=== PATIENT | female | born 1965 | race Caucasian/White ===

== ENCOUNTER → 2019-05-25 17:08 | Outpatient (BNVA) | payer OTHER, SELFPAY | PROVIDERS: Family Provider Family Medicine; PCP Family Medicine; Visit Provider Family Medicine | DX: E11.40 Type 2 diabetes mellitus with diabetic neuropathy, unspecified (principal); I10 Essential (primary) hypertension | CPT/HCPCS: 80048; 83036 ==

== ENCOUNTER → 2019-08-23 11:10 | Outpatient (BNVA) | payer OTHER, SELFPAY | PROVIDERS: Family Provider Family Medicine; PCP Family Medicine; Visit Provider Family Medicine | DX: E11.9 Type 2 diabetes mellitus without complications (principal); I10 Essential (primary) hypertension; E11.40 Type 2 diabetes mellitus with diabetic neuropathy, unspecified; F41.1 Generalized anxiety disorder; M25.50 Pain in unspecified joint; E78.2 Mixed hyperlipidemia; J30.9 Allergic rhinitis, unspecified; E11.42 Type 2 diabetes mellitus with diabetic polyneuropathy; B35.3 Tinea pedis; K21.9 Gastro-esophageal reflux disease without esophagitis | CPT/HCPCS: 80053; 80061; 83036 ==

== ENCOUNTER → 2019-11-16 11:23 | Outpatient (BNVA) | payer OTHER, SELFPAY | PROVIDERS: Family Provider Family Medicine; PCP Family Medicine; Visit Provider Family Medicine | DX: E11.40 Type 2 diabetes mellitus with diabetic neuropathy, unspecified (principal); I10 Essential (primary) hypertension; F41.1 Generalized anxiety disorder; M25.50 Pain in unspecified joint; E78.2 Mixed hyperlipidemia; J30.9 Allergic rhinitis, unspecified; B35.3 Tinea pedis | CPT/HCPCS: 80048; 83036 ==

== ENCOUNTER → 2020-02-15 10:18 | Outpatient (BNVA) | payer OTHER, SELFPAY | PROVIDERS: Family Provider Family Medicine; PCP Family Medicine; Visit Provider Family Medicine | DX: I10 Essential (primary) hypertension (principal); E11.40 Type 2 diabetes mellitus with diabetic neuropathy, unspecified; E78.2 Mixed hyperlipidemia; I50.9 Heart failure, unspecified | CPT/HCPCS: 80048; 83036 ==

== ENCOUNTER → 2020-05-22 18:00 | Outpatient (BNVA) | payer OTHER, SELFPAY | PROVIDERS: Family Provider Family Medicine; PCP Family Medicine; Visit Provider Family Medicine | DX: F41.1 Generalized anxiety disorder (principal); E11.42 Type 2 diabetes mellitus with diabetic polyneuropathy; M25.50 Pain in unspecified joint; I50.9 Heart failure, unspecified; L02.611 Cutaneous abscess of right foot; F32.1 Major depressive disorder, single episode, moderate; E78.2 Mixed hyperlipidemia; K21.9 Gastro-esophageal reflux disease without esophagitis; I11.0 Hypertensive heart disease with heart failure | CPT/HCPCS: 80048; 83036 ==

== ENCOUNTER 2020-07-13 11:17 | Outpatient (CLI) | payer OTHER, SELFPAY ==
--- NOTE | 2020-07-13 11:30 | MM_ITS ---
WS: [id number] BILATERAL SCREENING DIGITAL MAMMOGRAM WITH CAD HISTORY: Screening Breast cancer COMPARISON: 08/25/2018 and 11/30/2008 Bilateral CC and MLO views submitted. Computer aided detection analyzed. Breast composition: There are scattered areas of fibroglandular density. No suspicious masses, microc alcifications or architectural distortion. Lucent centered calcifications in each breast are stable. MM/[id number] IMPRESSION: BI-RADS: 2-Benign FOLLOW UP: 1 Year Follow-up
== END 2020-07-13 11:18 | disposition home or self-care (01) ==
LOC: RADSHAW 11:18
PROVIDERS: PCP Family Medicine; Visit Provider Family Medicine
DX: Z12.31 Encounter for screening mammogram for malignant neoplasm of breast (principal)
CPT/HCPCS: 77067

== ENCOUNTER → 2020-08-21 11:17 | Outpatient (BNVA) | payer OTHER, SELFPAY | PROVIDERS: PCP Family Medicine; Visit Provider Family Medicine | DX: E11.9 Type 2 diabetes mellitus without complications (principal); I10 Essential (primary) hypertension; E78.2 Mixed hyperlipidemia; R53.83 Other fatigue; E03.9 Hypothyroidism, unspecified; E11.42 Type 2 diabetes mellitus with diabetic polyneuropathy; R53.82 Chronic fatigue, unspecified; F32.1 Major depressive disorder, single episode, moderate; F41.1 Generalized anxiety disorder; I50.9 Heart failure, unspecified | CPT/HCPCS: 80053; 80061; 82607; 82652; 83036; 84443; 85025 ==

== ENCOUNTER → 2020-11-21 10:48 | Outpatient (BNVA) | payer OTHER, SELFPAY | PROVIDERS: PCP Family Medicine; Visit Provider Family Medicine | DX: F32.1 Major depressive disorder, single episode, moderate (principal); F41.1 Generalized anxiety disorder; I50.9 Heart failure, unspecified; E78.2 Mixed hyperlipidemia; E11.42 Type 2 diabetes mellitus with diabetic polyneuropathy; K21.9 Gastro-esophageal reflux disease without esophagitis; I10 Essential (primary) hypertension; L91.8 Other hypertrophic disorders of the skin | CPT/HCPCS: 80053; 83036 ==

== ENCOUNTER → 2021-02-15 17:43 | Outpatient (BNVA) | payer OTHER, SELFPAY | PROVIDERS: PCP Family Medicine; Visit Provider Family Medicine | DX: E11.9 Type 2 diabetes mellitus without complications (principal); I11.0 Hypertensive heart disease with heart failure; I50.9 Heart failure, unspecified | CPT/HCPCS: 80053; 83036; 85025 ==

== ENCOUNTER → 2021-05-17 10:49 | Outpatient (BNVA) | payer OTHER, SELFPAY | PROVIDERS: PCP Family Medicine; Visit Provider Family Medicine | DX: I11.0 Hypertensive heart disease with heart failure (principal); I50.9 Heart failure, unspecified; M25.50 Pain in unspecified joint; E11.9 Type 2 diabetes mellitus without complications; J30.9 Allergic rhinitis, unspecified; F41.1 Generalized anxiety disorder; E11.42 Type 2 diabetes mellitus with diabetic polyneuropathy; M25.561 Pain in right knee; M25.562 Pain in left knee; R25.2 Cramp and spasm; B35.3 Tinea pedis | CPT/HCPCS: 80048; 83036 ==

== ENCOUNTER → 2021-06-11 12:04 | Outpatient (BNVA) | payer OTHER, SELFPAY | PROVIDERS: PCP Family Medicine; Visit Provider Family Medicine | DX: M79.671 Pain in right foot (principal); M19.071 Primary osteoarthritis, right ankle and foot | CPT/HCPCS: 73630 ==

== ENCOUNTER → 2021-07-26 15:04 | Outpatient (BNVA) | payer OTHER, SELFPAY | PROVIDERS: PCP Family Medicine; Visit Provider Family Medicine | DX: E11.42 Type 2 diabetes mellitus with diabetic polyneuropathy (principal); S93.324A Dislocation of tarsometatarsal joint of right foot, initial encounter; X58.XXXA Exposure to other specified factors, initial encounter | CPT/HCPCS: 73630 ==

== ENCOUNTER 2021-08-13 10:55 | Outpatient (CLI) | payer OTHER, SELFPAY ==
--- NOTE | 2021-08-13 11:15 | USCV_ITS ---
Edith García Age: 55 Gender: F : 1965 Exam Date: 08/13/2021 11:37 Ordering Phys: Stephanie Montague MD Technologist: Noemi Owens Exam Location: [facility] [place] Indication: Cardiac murmur BP: 133 / 85 HR: 81 Rhythm: Sinus Technical Quality: Suboptimal MEASUREMENTS (Male / Female) Normal Values 2D ECHO LV Diastolic Diameter PLAX 4.0 cm 4.2 - 5.9 / 3.9 - 5.3 cm LV Systolic Diameter PLAX 2.8 cm IVS Diastolic Thickness 1.0 cm 0.6 - 1.0 / 0.6 - 0.9 cm IVS Systolic Thickness 1.7 cm LVPW Diastolic Thickness 1.5 cm 0.6 - 1.0 / 0.6 - 0.9 cm LVPW Systolic Thickness 1.7 cm LVOT Diameter 2.0 cm LV Ejection Fraction 2D Teich 57.2 % LA Diameter 2.4 cm Aorta at Sinotubular Diameter 1.9 cm M-MODE Aortic Annulus Diameter 3.0 cm LA Ao Ratio MM 0.8 DOPPLER AV Peak Velocity 130.0 cm/s LVOT Peak Velocity 66.0 cm/s AV Area Cont Eq vti 1.7 cm squared AV Area Cont Eq pk 1.6 cm squared MV Area PHT 3.1 cm squared Mitral E to A Ratio 0.9 MV E' Velocity 69.0 cm/s TR Peak Velocity 266.0 cm/s TR Peak Gradient 28.3 mmHg TV Peak E Velocity 60.0 cm/s PV Peak Velocity 106.0 cm/s FINDINGS Left Ventricle Normal left ventricular cavity size. Grossly normal left ventricle systolic function. Left ventricular ejection fraction is estimated at 60 %. Although no diagnostic regional wall motion normality could be in fact, this possibility cannot be completely excluded. Right Ventricle Normal right ventricular size and systolic function. Right Atrium Right atrium not well visualized. Left Atrium Normal left atrial size. Mitral Valve Possibly normal mitral valve. No mitral valve stenosis. Aortic Valve Aortic valve not well visualized. No aortic valve stenosis. Tricuspid Valve Tricuspid valve not well visualized. No tricuspid valve stenosis. Trace tricuspid valve regurgitation. Pulmonic Valve Pulmonic valve not well visualized. No pulmonary valve stenosis. Pericardium No pericardial effusion. Aorta Normal size aortic root and proximal ascending aorta. CONCLUSIONS 1. This is a technically difficult study. 2. Normal left ventricular cavity size. Grossly normal left ventricle systolic function. Left ventricular ejection fraction is estimated at 60 %. Although no diagnostic regional wall motion normality could be in fact, this possibility cannot be completely excluded. 3. Repeat study with echo contrast is recommended. Nuzhat Garcia MD (Electronically Signed) Final Date: 15 August 2021 17:30 S
== END 2021-08-13 10:56 | disposition home or self-care (01) ==
LOC: RAD 10:57
PROVIDERS: PCP Family Medicine; Visit Provider Family Medicine
DX: R01.1 Cardiac murmur, unspecified (principal); R42 Dizziness and giddiness
CPT/HCPCS: 80053; 80061; 83036; 93306

== ENCOUNTER → 2021-11-01 14:58 | Outpatient (BNVA) | payer OTHER, SELFPAY | PROVIDERS: PCP Family Medicine; Visit Provider Family Medicine | DX: I10 Essential (primary) hypertension; F41.1 Generalized anxiety disorder; E11.42 Type 2 diabetes mellitus with diabetic polyneuropathy; M25.561 Pain in right knee; M25.562 Pain in left knee; I50.9 Heart failure, unspecified; J30.9 Allergic rhinitis, unspecified; M25.50 Pain in unspecified joint; R25.2 Cramp and spasm; F32.1 Major depressive disorder, single episode, moderate | CPT/HCPCS: 80048; 83036 ==

== ENCOUNTER → 2021-12-30 13:14 | Outpatient (BNVA) | payer OTHER, SELFPAY | PROVIDERS: PCP Family Medicine; Visit Provider Emergency Medicine | DX: Z20.822 Contact with and (suspected) exposure to COVID-19 (principal); M79.10 Myalgia, unspecified site; J10.1 Influenza due to other identified influenza virus with other respiratory manifestations | CPT/HCPCS: 87400; 87426 ==

== ENCOUNTER 2023-01-10 10:10 | Inpatient (IN) | payer OTHER, SELFPAY ==
[2023-01-10] VITALS (10 sets, daily range): BP systolic 125–156; BP diastolic 44–100; PULSE 67–93; RESP 16–20; TEMP 36.7–36.9; O2SAT 91–100; BMI 31.7
--- NOTE | 2023-01-10 10:52 | W.ED.BACK ---
HPI - Back Pain/Injury General: Chief Complaint: Fall Stated Complaint: fall post back surgery Time Seen by Provider: 01/10/23 10:25 Source: patient and EMS Mode of arrival: EMS Limitations: no limitations History of Present Illness: Patient presents to the emergency department today brought by EMS for evaluation and treatment of pain and other issues after fall last night. Patient has a very complicated history over the last year or so. Patient had thoracic/lumbar surgery performed by a doctor in [facility] for what sounds like a spinal abscess. Patient was sent to [facility] after a diabetic right foot ulcer became gangrenous and patient had septicemia. She reports she was unconscious for couple weeks and when she woke up they had amputated her right leg below the knee. Patient states she spent approximately 6 months in [facility] and rehab and was sent to another rehab facility in [place] in September. Patient returned home but just yesterday. Patient has a colostomy and suprapubic catheter now as well. She indicates she just returned home yesterday afternoon and yesterday evening was trying to change her adult diaper at home when she accidentally fell backwards. Patient states she landed on the hardwood floor in her living room and injured her back. She states she was unable to get up all night. She states she spent the night on the floor. She admitted to being very cold. She had not eaten or drank anything since lunch that day. She has not taken any of her medications since yesterday. Patient states that this morning she was finally able to crawl into her bedroom where her cell phone was plugged in to call 911. 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 Review of Systems General: Reports: 10 or more systems reviewed and unremarkable except in HPI and below PFSH ED PFSH: Medical History Allergic rhinitis Arthralgia Cellulitis of foot associated with diabetes mellitus CHF (congestive heart failure) ABDON (generalized anxiety disorder) GERD (gastroesophageal reflux disease) Hyperlipemia, mixed Hypertension, benign Irregular heart beat Large platelets Major depression Neuropathy in diabetes Onychomycosis Peripheral edema PVD (peripheral vascular disease) Sleep apnea, obstructive Type 2 diabetes mellitus without complication, without long-term current use of insulin Bydureon switched to glipizide due to cost Surgical History H/O: hysterectomy Hx of cholecystectomy Family History Father Heart disease Family/Other Cancer aunt-breast cancer Other Diabetes Social History Smoking and tobacco status: never smoked Alcohol intake: never Substance/Drug Use: never Current gender identity: Female Female Reproductive History: Spontaneous abortions: No Physical Exam Const: COMMON NORMALS: no acute distress, patient oriented x3 and alert HENMT: COMMON NORMALS: normocephalic, atraumatic, hearing grossly normal bilaterally and moist oral mucous membranes HEAD & SCALP: normocephalic and atraumatic Eye: COMMON NORMALS: Equal, round and reactive pupils present, EOMs intact bilaterally and conjunctivae normal CONJUNCTIVA: Yes conjunctivae normal PUPIL: Yes Equal, round and reactive pupils present Neck/C-Spine: COMMON NORMALS: full ROM and no JVD Lymph: LYMPHATIC: no lymphadenopathy noted Resp: COMMON NORMALS: normal respiratory effort, No retractions, No use of accessory muscles and clear to auscultation bilaterally AUSCULTATION: clear to auscultation bilaterally Cardio: COMMON NORMALS: no JVD, regular rate and regular rhythm RATE: regular rate RHYTHM: regular rhythm GI: OTHER: Patient has a large pannus. She has a left lateral stoma. Stoma itself does not appear abnormal but, surrounding skin is very erythematous and macerated from her colostomy adhesive. She indicates tenderness around the stoma site. Suprapubic catheter in place. : OTHER: Suprapubic catheter in place with good urine flow. Back/Pelvis: OTHER: Back and spinal examination very difficult due to patient body habitus and difficulty with mobility in the bed. However, patient is able to somewhat roll onto her side to allow for pillow padding to be placed. No obvious abnormalities Extremity: COMMON NORMALS: normal to inspection, full ROM and capillary refill normal NARRATIVE EXTREMITY EXAM: Patient with prosthesis removed. No signs of skin breakdown. Neuro: COMMON NORMALS: patient oriented x3 SENSORIUM/ORIENTATION: Yes alert Psych: COMMON NORMALS: mental status grossly normal, Normal thought process present, cooperative, normal affect and activity/motor behavior normal THOUGHT PROCESS: Normal thought process present Skin: COMMON NORMALS: no rashes or lesions noted and no wounds (Except otherwise noted on abdominal exam.) GENERAL SKIN EXAM: no rashes or lesions noted Course Vital Signs: Vital signs: Vital Signs Temperature 98.0 F 01/10/23 10:10 Pulse Rate 67 01/10/23 13:52 Respiratory Rate 18 01/10/23 16:48 Blood Pressure 151/100 01/10/23 11:45 Pulse Oximetry 93 01/10/23 13:52 Oxygen Delivery Me thod Room Air 01/10/23 13:52 MDM - Back Pain/Injury Medical Decision Making Patient presented to the emergency department with multiple issues and chronic medical issues. Patient's evaluation revealed no signs of an acute septicemia but has a significant urinary infection. Kidney function is within normal limits. No elevated white blood cell count. Hemoglobin is stable. No electrolyte abnormality. Given the patient's history we did perform CT examination to evaluate the thoracolumbar in the abdominal/pelvic region. No acute findings on her exam. I did reach out and spoke with Dr. Driver discuss concerns for patient discharge given her current condition. We did review lab work and imaging together and he is admitting her to the [facility] floor. Patient be started on Zosyn-I had originally ordered Rocephin but, medication has not been given yet and was able to change the antibiotic order. We also are collecting blood cultures prior to starting antibiotics. We will defer care and further evaluation of this patient to the hospitalist services at this time. Patient was notified of the recommendation for admission and she was in agreement. Differential Diagnosis Likely strain of lumbar region; Unlikely lumbar radiculopathy, sciatica, pyelonephritis or thoracic back pain Labs 01/10/23 11:35 01/10/23 11:35 Radiology Impressions Abdomen/Pelvis CT 01/10/23 12:51 IMPRESSION: 1. No acute findings within the abdomen or pelvis. 2. Postsurgical changes sigmoid colon left-sided colostomy unremarkable in appearance. 3. Postsurgical changes with spinal instrumentation stabilizing chronic severe compression fracture L1 as discussed above. 4. Additional nonemergent findings as above. Laboratory Results WBC 9.83 10^3/uL (3.29-11.43) 01/10/23 11:35 RBC 4.10 10^6/uL (3.85-5.65) 01/10/23 11:35 Hgb 11.40 g/dL (11.27-16.99) 01/10/23 11:35 Hct 35.8 % (36-47) L 01/10/23 11:35 MCV 87.3 fl (85-98) 01/10/23 11:35 MCH 27.8 pg (27-33) 01/10/23 11:35 MCHC 31.8 g/dL (30-55) 01/10/23 11:35 RDW 16.8 % (12.1-15.1) H 01/10/23 11:35 Plt Count 394 10^3/cmm (157-399) 01/10/23 11:35 MPV 8.9 fL (7.4-10.4) 01/10/23 11:35 Neut % (Auto) 79.3 % 01/10/23 11:35 Lymph % (Auto) 14.1 % 01/10/23 11:35 [place] % (Auto) 5.8 % 01/10/23 11:35 Eos % (Auto) 0.2 % 01/10/23 11:35 Baso % (Auto) 0.2 % 01/10/23 11:35 Neut # (Auto) 7.79 10^3/uL (1.8-7.7) H 01/10/23 11:35 Lymph # (Auto) 1.4 10^3/uL (0.8-4.8) 01/10/23 11:35 [place] # (Auto) 0.6 10^3/uL (0.2-0.9) 01/10/23 11:35 Eos # (Auto) 0.0 10^3/uL (0.0-0.8) 01/10/23 11:35 Baso # (Auto) 0.0 10^3/uL (0.0-0.1) 01/10/23 11:35 Nucleated RBC % (auto) 0 % 01/10/23 11:35 Nucleated RBCs # 0.0 /100WBC 01/10/23 11:35 ESR 26 mm/hr (0-15) H 01/10/23 11:35 Sodium 141 mmol/L (136-145) 01/10/23 11:35 Potassium 3.6 mmol/L (3.5-5.1) 01/10/23 11:35 Chloride 103 mmol/L (98-107) 01/10/23 11:35 Carbon Dioxide 24 mmol/L (22-29) 01/10/23 11:35 Anion Gap 17.6 (5-19) 01/10/23 11:35 BUN 16 mg/dL (6-20) 01/10/23 11:35 Creatinine 0.6 mg/dL (0.5-0.9) 01/10/23 11:35 GFR Calculation 102.3 mL/min (90-130) 01/10/23 11:35 Glucose 201 mg/dL (65-115) H 01/10/23 11:35 Calculated Osmolality 299 mOsm/kg (285-295) H 01/10/23 11:35 Calcium 9.1 mg/dL (8.5-10.5) 01/10/23 11:35 Total Bilirubin 0.3 mg/dL (0.15-1.2) 01/10/23 11:35 AST 21 U/L (0-32) 01/10/23 11:35 ALT 16 U/L (0-33) 01/10/23 11:35 Alkaline Phosphatase 134 U/L (35-105) H 01/10/23 11:35 Creatine Kinase 84 U/L (26-192) 01/10/23 11:35 C-Reactive Protein 50.5 mg/L (0.0-4.9) H 01/10/23 11:35 NT-Pro-B Natriuret Pep 278 pg/mL (0-125) H 01/10/23 11:35 Total Protein 7.7 g/dL (6.6-8.7) 01/10/23 11:35 Albumin 3.9 g/dL (3.5-5.2) 01/10/23 11:35 Globulin 3.8 g/dL (1.3-4.6) 01/10/23 11:35 Procalcitonin 0.08 ng/mL (0-0.5) 01/10/23 11:35 Urine Color Yellow (Yellow) 01/10/23 12:55 Urine Appearance Hazy (CLEAR) A 01/10/23 12:55 Urine pH 5 (5-7) 01/10/23 12:55 Ur Specific [place] 1.015 (1.005-1.030) 01/10/23 12:55 Urine Protein 3+ (Negative) H 01/10/23 12:55 Urine Glucose (UA) Norm (Normal) 01/10/23 12:55 Urine Ketones 1+ (Negative) H 01/10/23 12:55 Urine Blood 3+ (Negative) H 01/10/23 12:55 Urine Nitrate Positive (Negative) H 01/10/23 12:55 Urine Bilirubin Neg (Negative) 01/10/23 12:55 Urine Urobilinogen Norm mg/dL (Negative) 01/10/23 12:55 Ur Leukocyte Esterase 2+ (Negative) H 01/10/23 12:55 Urine RBC 5-10 /hpf (0-2) H 01/10/23 12:55 Urine WBC >100 /hpf (0-5) H 01/10/23 12:55 Ur Squamous Epith Cells 0-4 /hpf (0-5) H 01/10/23 12:55 Amorphous Sediment Not Reportable 01/10/23 12:55 Urine Bacteria 4+ /hpf (NONE) H 01/10/23 12:55 All radiology interpretation(s) finalized by discharge Discharge Plan Discharge Patient Disposition: Admitted As Inpatient Clinical Impression: Back pain of thoracolumbar region, CHF (congestive heart failure), History of creation of ostomy, Chronic suprapubic catheter, DM II (diabetes mellitus, type II), controlled, HTN (hypertension) Condition: Stable Coding Level of Care Code ED Senior Adults Director for Kenneth Carrero
--- NOTE | 2023-01-10 10:59 | ECG_ITS ---
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 Measurements Intervals [place] Rate: 90 P: 53 ID: [id number] QRS: -71 QRSD: 121 T: 73 QT: 406 QTc: 498 Interpretive Statements SINUS RHYTHM LEFT ANTERIOR FASCICULAR BLOCK [QRS AXIS <= -45, QR IN I, RS IN II] ANTEROLATERAL MYOCARDIAL INFARCTION , OF INDETERMINATE AGE [40+ ms Q WAVE IN I/aVL/V3-V6] No previous ECG available for comparison Electronically Signed On 01-10-2023 19:07:01 CDT by Jaime Pedroza M.D. [id number]
--- NOTE | 2023-01-10 11:20 | PC.PHAR ---
[facility] is faxing discharge med list from yesterday 01/10.
--- NOTE | 2023-01-10 11:35 | PC.NURSE ---
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 Her name is Jazmyne George phone number
[2023-01-10 11:43] LABS: Basophils % 0.2 %; Eosinophils % 0.2 %; Hematocrit 35.8 % (36-47); Lymphocytes # 1.4 10^3/uL (0.8-4.8); Lymphocytes % 14.1 %; Mean Corpuscular HGB Conc 31.8 g/dL (30-55); Mean Corpuscular Hemoglobin 27.8 pg (27-33); Mean Corpuscular Volume 87.3 fl (85-98); Mean Platelet Volume 8.9 fL (7.4-10.4); Monocytes # 0.6 10^3/uL (0.2-0.9); Monocytes % 5.8 %; Neutrophils # 7.79 10^3/uL (1.8-7.7); Neutrophils % 79.3 %; Nucleated Red Blood Cells % 0 %; Platelet Count 394 10^3/cmm (157-399); Red Cell Distribution Width 16.8 % (12.1-15.1); White Blood Count 9.83 10^3/uL (3.29-11.43)
[2023-01-10 11:49] LABS: Erythrocyte Sedimentation Rate 26 mm/hr (0-15)
[2023-01-10 12:27] LABS: NT Pro B Type Natriuretic Pept 278 pg/mL (0-125); Procalcitonin 0.08 ng/mL (0-0.5)
[2023-01-10 12:39] LABS: Alanine Aminotransferase 16 U/L (0-33); Albumin Level 3.9 g/dL (3.5-5.2); Alkaline Phosphatase 134 U/L (35-105); Aspartate Amino Transferase 21 U/L (0-32); Blood Urea Nitrogen 16 mg/dL (6-20); C Reactive Protein 50.5 mg/L (0.0-4.9); Calcium 9.1 mg/dL (8.5-10.5); Carbon Dioxide 24 mmol/L (22-29); Chloride 103 mmol/L (98-107); Creatine Phosphokinase 84 U/L (26-192); Globulin 3.8 g/dL (1.3-4.6); Glomerular Filtration Rate 102.3 mL/min (90-130); Glucose 201 mg/dL (65-115); Osmolality Calculated 299 mOsm/kg (285-295); Sodium 141 mmol/L (136-145); Total Bilirubin 0.3 mg/dL (0.15-1.2); Total Protein 7.7 g/dL (6.6-8.7)
[2023-01-10 12:42] LABS: Anion Gap 17.6 (5-19); Potassium 3.6 mmol/L (3.5-5.1)
--- NOTE | 2023-01-10 12:51 | CTR_ITS ---
PROCEDURE INFORMATION: Exam: CT Abdomen And Pelvis With Contrast Exam date and time: 01/10/2023 3:54 PM Age: 57 years old Clinical indication: Injury or trauma; Fall; Blunt; Generalized; Additional info: Pain, thoracolumbar pain from fall, abd pain from fall- stoma site TECHNIQUE: Imaging protocol: Computed tomography of the abdomen and pelvis with contrast. Radiation optimization: All CT scans at this facility use at least one of these dose optimization techniques: automated exposure control; mA and/or kV adjustment per patient size (includes targeted exams where dose is matched to clinical indication); or iterative reconstruction. Contrast material: OMNI 350; Contrast volume: 100 ml; Contrast route: INTRAVENOUS (IV); REPORTING DATA: Count of CT and Cardiac NM exams in prior 12 months: This patient has received 0 known CTs and 0 known cardiac nuclear medicine studies in the 12 months prior to the current study. COMPARISON: No relevant prior studies available. RADIATION DOSE METRICS: Total DLP (mGy-cm): 1071.75 FINDINGS: Tubes, catheters and devices: Suprapubic [place] catheter balloon within the urinary bladder which is collapsed and difficult to further assess. Lungs: Lung bases are clear. Liver: Liver is mildly enlarged with fatty infiltration.. Gallbladder and bile ducts: Gallbladder cannot be identified and presumably has been removed. Bile ducts are not dilated. Pancreas: Normal. No ductal dilation. Spleen: Normal. No splenomegaly. Adrenal glands: Normal. No mass. Kidneys and ureters: Normal. No hydronephrosis. Stomach and bowel: Postsurgical changes sigmoid colon with partial resection evident. Left-sided colostomy which is unremarkable. Appendix: No evidence of appendicitis. Intraperitoneal space: Unremarkable. No free air. No significant fluid collection. Vasculature: Unremarkable. No abdominal aortic aneurysm. Lymph nodes: Unremarkable. No enlarged lymph nodes. Urinary bladder: Unremarkable as visualized. Reproductive: Uterus has been removed. Bones/joints: Postsurgical changes with spinal instrumentation of the thoracolumbar spine stabilizing a chronic severe biconcave compression fracture of L1. There is mild retropulsion of the posterior vertebral margin and accentuated kyphosis at the thoracolumbar junction. There is decompressive laminectomy extending from T12-L1 with postop changes within the paraspinal soft tissues difficult to further assess. Soft tissues: See Bones/joints finding. CT/CT abdomen pelvis w con* [id number] IMPRESSION: 1. No acute findings within the abdomen or pelvis. 2. Postsurgical changes sigmoid colon left-sided colostomy unremarkable in appearance. 3. Postsurgical changes with spinal instrumentation stabilizing chronic severe compression fracture L1 as discussed above. 4. Additional nonemergent findings as above.
--- NOTE | 2023-01-10 13:05 | PC.NURSE ---
PT PRESENT WITH ALL MEDS IN BAG, RIGHT PROSTHETIC LEG. AND BACKPACK OF CLOTHES
--- NOTE | 2023-01-10 13:08 | PC.NURSE ---
PT WAS PLACED IN A MEDICAL BED AND GIVEN A [employer] TRANSFER MAT TO LAY ON FOR TRANSFER ASSISTANCE.
[2023-01-10 13:21] LABS: Add Urine Culture? Yes; Add Urine Microscopic? YES; Bacteria Urine 4+ /hpf; Bilirubin Urine Neg (Negative); Blood Urine 3+ (Negative); Glucose Urine UA Norm (Normal); Ketones Urine 1+ (Negative); Leukocyte Esterase Urine 2+ (Negative); Nitrate Urine Positive (Negative); Protein Urine 3+ (Negative); Specific Gravity, Urine 1.015 (1.005-1.030); Squamous Epithelial Cell Urine 0-4 /hpf (0-5); Urine Appearance Hazy (CLEAR); Urine Color Yellow (Yellow); Urobilinogen Urine Norm (Negative); WBC Urine >100 /hpf (0-5); pH Urine 5 (5-7)
[2023-01-10] MEDS: iohexol 350 mg/mL 500 mL Btl (per mL) IV (15:56)
[2023-01-10] MEDS: oxyCODONE 5 mg IR Tab/Cap PO (16:48)
--- NOTE | 2023-01-10 17:01 | PC.NURSE ---
CASSI AKHTAR, POA OF PT, CALLED ASKING FOR UPDATE. CASSI REQUESTED TO BE CALLED WHEN MORE INFORMATION IS AVAILABLE.
[2023-01-10] MEDS: piperacillin-tazobactam 3.375 GM in sodium chloride 0.9% (plus) 50 ML IV (17:10)
--- NOTE | 2023-01-10 17:56 | PC.NURSE ---
PT NEED CPAP TO SLEEP, HOSPITALIST AWARE
--- NOTE | 2023-01-10 17:57 | PC.NURSE ---
PT OSTOMY CHANGED WITH HOSPITAL OSTOMY FROM [facility]
--- NOTE | 2023-01-10 18:17 | P.HP_ITS ---
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, and it required a colostomy, and requiring a suprapubic catheter, she then was transferred to a rehab center in [place], she is now been back in [place] for the last 24 hours, she tells me that she has been on the floor for the last 12 hours since getting home due to generalized weakness, she tells me that she was unable to change her colostomy bag, she tells me that her suprapubic catheter was changes before she left, she does have a prosthetic fitted for her right BKA, but it has not been wrapped, she feels weak, fatigued, tired has had poor appetite, no fevers, no chills, she has not taken her medications today, she reports chronic drainage from her suprapubic catheter which is normal for her, denies any other ulcers, no DTI's Review of Systems Const: Denies: fever(s) Eyes: Denies: change in vision ENMT: Denies: throat pain Card: Denies: chest pain Resp: Denies: dyspnea GI: Denies: abdominal pain : Denies: flank pain Musc: Denies: neck pain or back pain Skin/Breast: Denies: rash Neuro: Denies: headache(s) Psych: Denies: anxiety Medications/Allergies Home Medications Medication Instructions Recorded Confirmed Last Taken Type diclofenac sodium 1 % topical gel 2 g topical QID #100 grams 10/13/20 01/10/23 Unknown Rx omega-3 fatty acids 1,000 mg 1,000 mg PO BID 30 days #60 caps 10/26/21 01/10/23 Unknown Rx capsule metformin 1,000 mg tablet 1,000 mg PO BID 30 days #60 tabs 11/01/21 01/10/23 Unknown Rx montelukast 10 mg tablet 10 mg PO QDAY 30 days #30 tabs 11/01/21 01/10/23 Unknown Rx venlafaxine 150 mg 150 mg PO .QPM 30 days #30 caps 11/01/21 01/10/23 Unknown Rx capsule,extended release 24 hr flash glucose scanning reader #1 ea 12/18/21 01/10/23 Unknown Rx (FreeStyle Colette 14 Day [place]) flash glucose sensor (FreeStyle #2 ea 12/18/21 01/10/23 Unknown Rx Colette 14 Day Sensor kit) pen needle, diabetic 33 gauge x #100 ea 12/27/21 01/10/23 Unknown Rx 1/4 (Comfort EZ Pen [place]) acetaminophen 325 mg tablet 650 mg PO QID PRN Pain 01/10/23 01/10/23 Unknown History apixaban 5 mg tablet (Eliquis) 5 mg PO BID 01/10/23 01/10/23 Unknown History ascorbic acid (vitamin C) 500 mg 500 mg PO TID 01/10/23 01/10/23 Unknown History tablet (Vitamin C) aspirin 81 mg tablet,delayed 81 mg PO BID 01/10/23 01/10/23 Unknown History release atorvastatin 10 mg tablet 10 mg PO QPM 01/10/23 01/10/23 Unknown History baclofen 10 mg tablet 10 mg PO Q6H PRN Muscle Spasm 01/10/23 01/10/23 Unknown History bumetanide 1 mg tablet 1 mg PO DAILY 01/10/23 01/10/23 Unknown History buspirone 15 mg tablet 15 mg PO TID 01/10/23 01/10/23 Unknown History celecoxib 200 mg capsule (Celebrex) 200 mg PO BID 01/10/23 01/10/23 Unknown History cyclobenzaprine 10 mg tablet 10 mg PO QPM 01/10/23 01/10/23 Unknown History dantrolene 25 mg capsule 25 mg PO TID 01/10/23 01/10/23 Unknown History docusate sodium 100 mg capsule 100 mg PO DAILY 01/10/23 01/10/23 Unknown History ferrous sulfate 325 mg (65 mg 325 mg PO DAILY 01/10/23 01/10/23 Unknown History iron) tablet lactobacillus combination no.4 3 3,000 mmu cells PO BID 01/10/23 01/10/23 Unknown History billion cell capsule (Probiotic) lidocaine 5 % topical cream See Rx Instructions .Route .COMPLEX 01/10/23 01/10/23 Unknown History lorazepam 0.5 mg tablet See Rx Instructions .Route 01/10/23 01/10/23 Unknown History .COMPLEX PRN Anxiety metoprolol tartrate 25 mg tablet 25 mg PO DAILY 01/10/23 01/10/23 Unknown History multivitamin 1 tab PO DAILY 01/10/23 01/10/23 Unknown History nortriptyline 25 mg capsule 25 mg PO QPM 01/10/23 01/10/23 Unknown History oxycodone 5 mg tablet 5 - 10 mg PO Q4H PRN Pain 01/10/23 01/10/23 Unknown History pantoprazole 40 mg tablet,delayed 40 mg PO DAILY 01/10/23 01/10/23 Unknown History release polyethylene glycol 3350 17 gram 17 g PO BID 01/10/23 01/10/23 Unknown History oral powder packet (Miralax) potassium chloride 10 mEq 10 meq PO TID 01/10/23 01/10/23 Unknown History tablet,extended release pregabalin 100 mg capsule 100 mg PO BID 01/10/23 01/10/23 Unknown History pregabalin 25 mg capsule 25 mg PO BID PRN Pain 01/10/23 01/10/23 Unknown History pregabalin 50 mg capsule 50 mg PO .NOON 01/10/23 01/10/23 Unknown History quetiapine 25 mg tablet 25 mg PO QPM 01/10/23 01/10/23 Unknown History sennosides 8.6 mg-docusate sodium 1 tab-cap PO BID 01/10/23 01/10/23 Unknown History 50 mg tablet (Senokot-S) tramadol 50 mg tablet 50 - 100 mg PO Q4H PRN Pain 01/10/23 01/10/23 Unknown History Allergies Allergy/AdvReac Type Severity Reaction Status Date / Time lisinopril Allergy Mild ADR-Swelling Verified 01/10/23 11:01 of the Eye codeine Allergy ALGY-Hives Verified 01/10/23 11:01 PFSH Acute PFSH: Medical History (Updated 01/10/23 @ 18:21 by Bassam Driver MD) 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 Allergic rhinitis Arthralgia Cellulitis of foot associated with diabetes mellitus CHF (congestive heart failure) ABDON (generalized anxiety disorder) GERD (gastroesophageal reflux disease) History of DVT (deep vein thrombosis) Hyperlipemia, mixed Hypertension, benign Irregular heart beat Large platelets Major depression Neuropathy in diabetes Onychomycosis Peripheral edema PVD (peripheral vascular disease) Sleep apnea, obstructive Type 2 diabetes mellitus without complication, without long-term current use of insulin Bydureon switched to glipizide due to cost Surgical History (Updated 01/10/23 @ 18:21 by Bassam Driver MD) H/O laminectomy H/O: hysterectomy History of colostomy History of suprapubic catheter Hx of cholecystectomy Family History Father Heart disease Family/Other Cancer aunt-breast cancer Other Diabetes Social History Smoking and tobacco status: never smoked Alcohol intake: never Substance/Drug Use: never Current gender identity: Female Female Reproductive History: Spontaneous abortions: No Vitals/I&O/Wt Last Vital Signs Temp 98.0 F 01/10/23 10:10 Pulse 90 01/10/23 17:33 Resp 17 01/10/23 17:33 BP 129/78 01/10/23 17:33 Pulse Ox 99 01/10/23 17:33 O2 Del Method Room Air 01/10/23 13:52 Weight last 48 hrs Weight 97.522 kg Physical Exam Const: COMMON NORMALS: no acute distress and patient oriented x3 GENERAL APPEARANCE: cooperative, well kempt and well developed HENMT: COMMON NORMALS: normocephalic and Normal external nose present HEAD & SCALP: normocephalic FACE & SINUS: normal facial exam Eye: COMMON NORMALS: Equal, round and reactive pupils present, EOMs intact bilaterally, conjunctivae normal and no scleral icterus CONJUNCTIVA: Yes conjunctivae normal PUPIL: Yes Equal, round and reactive pupils present Neck/C-Spine: COMMON NORMALS: full ROM, no lymphadenopathy, no meningeal signs, no JVD, Thyroid normal and No carotid bruits THYROID: Thyroid normal Lymph: LYMPHATIC: no lymphadenopathy noted Chest: COMMONS NORMALS: normal inspection of the chest Resp: COMMON NORMALS: normal respiratory effort, No retractions, No use of accessory muscles and clear to auscultation bilaterally AUSCULTATION: clear to auscultation bilaterally Cardio: COMMON NORMALS: regular rate, regular rhythm, S1 normal heart sound present, S2 normal heart sound present, No murmurs present (Cardio) and Peripheral pulses 2+ throughout RATE: regular rate RHYTHM: regular rhythm HEART SOUNDS: S1 normal heart sound present and S2 normal heart sound present PERIPHERAL PULSES: Peripheral pulses 2+ throughout GI: COMMON NORMALS: Normal to inspection, nondistended, normoactive bowel sounds present, Soft to palpation and non-tender OTHER: Colostomy present, this tissue is fleshy and pink : BLADDER/KIDNEY EXAM: Yes no CVA tenderness Back/Pelvis: COMMON NORMALS: no CVA tenderness Extremity: COMMON NORMALS: normal to inspection, full ROM, capillary refill normal, no calf tenderness and no pedal edema Neuro: COMMON NORMALS: patient oriented x3, CN's II-XII intact bilaterally and moves all extremities Psych: COMMON NORMALS: mental status grossly normal, Normal thought process present, cooperative and speech normal APPEARANCE: Yes well kempt SPEECH: Yes normal speech THOUGHT PROCESS: Normal thought process present Skin: COMMON NORMALS: turgor normal and no jaundice NARRATIVE SKIN EXAM: Suprapubic catheter in place Right below-knee amputation GENERAL SKIN EXAM: turgor normal Data 01/10/23 11:35 01/10/23 11:35 Micro: Microbiology 01/10/23 17:08 Blood Culture - Preliminary Blood SPECIMEN COLLECTED 01/10/23 17:16 Blood Culture - Preliminary Blood SPECIMEN COLLECTED A&P Assessment and plan (1) 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: (2) History of DVT (deep vein thrombosis): (3) DM II (diabetes mellitus, type II), controlled: (4) HTN (hypertension): (5) CKD (chronic kidney disease): Qualifiers: Chronic kidney disease stage: stage 2 (mild) Qualified Code(s): N18.2 - Chronic kidney disease, stage 2 (mild) Plan Urinary tract infection -Complicated with suprapubic catheter -History of prolonged hospitalization as above -Has risk factors for ESBL -Plan continue Zosyn -Follow urine cultures, blood cultures Type 2 diabetes mellitus Low-dose sliding scale History of DVT Continue Eliquis History of right below-knee amputation -PT OT History of spinal abscess, with T12-L1 decompressive laminectomy -Monitor surgical site History of chronic pain -Switch to morphine 2 mg IV push every 24 hours -Hold Celebrex -Continue baclofen -Continue cyclobenzaprine -Continue Lyrica -Continue Effexor -Continue dantrolene Anxiety and depression -Continue BuSpar, lorazepam, nortriptyline Hypertension continue metoprolol History of colostomy, continue MiraLAX History of suprapubic catheter Dehydration, IV fluids Attestations Medical Necessity Statement*: Patient requires hospitalization, inpatient, greater than 2 minutes, for complic ated UTI Diagnoses 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
[2023-01-10] MEDS: sodium chloride 0.9% 1,000 ML 75 ML IV (18:48)
[2023-01-10] MEDS: morphine 4 mg/mL SDV 1 mL 2 MG IVP (18:48)
[2023-01-10] MEDS: famotidine 20 mg/2 mL INJ IVP (18:48)
[2023-01-10 19:50] LABS: Lactic Sepsis W/Reflex 1.8 mmol/L (0.5-2.2)
[2023-01-10 20:01] LABS: Chol HDL Ratio 3.33 mg/dL (0.0-4.40); Cholesterol 143 mg/dL (0-200); HDL Cholesterol 43 mg/dL (60-100); LDL Cholesterol Calculated 52 mg/dL (50-129); LDL HDL Ratio 1.21 RATIO (0.00-3.22); NT Pro B Type Natriuretic Pept 372 pg/mL (0-125); Thyroid Stimulating Hormone 0.95 uIU/mL (0.27-4.20); Triglycerides 242 mg/dL (0-150)
[2023-01-10] MEDS: BuSPIRONE 10 mg Tablet 15 MG PO (20:19)
[2023-01-10] MEDS: venlafaxine ER (24HR) 150 mg Capsule PO (20:19)
[2023-01-10] MEDS: pregabalin 100 mg Capsule PO (20:19)
[2023-01-10 20:36] LABS: Estmated Average Glucose 128; Hemoglobin A1C 6.1 % (4.0-6.0)
[2023-01-10 20:40] LABS: Glucose Point of Care 231 mg/dL (70-110)
[2023-01-10] MEDS: baclofen 10 mg Tablet PO (22:16)
[2023-01-10] MEDS: acetaminophen 325 mg Tablet 650 MG PO (22:16)
[2023-01-10] MEDS: LORazepam 0.5 mg Tablet PO (22:17)
[2023-01-11] VITALS (12 sets, daily range): BP systolic 133–164; BP diastolic 78–90; PULSE 73–89; RESP 16–18; TEMP 36.7–36.9; O2SAT 91–97
[2023-01-11] MEDS: piperacillin-tazobactam 3.375 GM in sodium chloride 0.9% (plus) 50 ML IV ×3 (02:18→18:06)
[2023-01-11] MEDS: morphine 4 mg/mL SDV 1 mL 2 MG IVP (02:28)
[2023-01-11 05:26] LABS: Basophils % 0.6 %; Eosinophils # 0.1 10^3/uL (0.0-0.8); Eosinophils % 1.3 %; Hematocrit 32.8 % (36-47); Lymphocytes # 1.8 10^3/uL (0.8-4.8); Lymphocytes % 25.3 %; Mean Corpuscular HGB Conc 30.8 g/dL (30-55); Mean Corpuscular Hemoglobin 28.1 pg (27-33); Mean Corpuscular Volume 91.1 fl (85-98); Mean Platelet Volume 8.6 fL (7.4-10.4); Monocytes # 0.6 10^3/uL (0.2-0.9); Monocytes % 8.9 %; Neutrophils % 63.6 %; Nucleated Red Blood Cells % 0 %; Platelet Count 290 10^3/cmm (157-399); Red Cell Distribution Width 16.9 % (12.1-15.1); White Blood Count 7.07 10^3/uL (3.29-11.43)
[2023-01-11] MEDS: baclofen 10 mg Tablet PO (05:48)
[2023-01-11] MEDS: acetaminophen 325 mg Tablet 650 MG PO (05:48)
[2023-01-11 05:49] LABS: Anion Gap 13.1 (5-19); Blood Urea Nitrogen 11 mg/dL (6-20); Calcium 8.3 mg/dL (8.5-10.5); Carbon Dioxide 24 mmol/L (22-29); Chloride 101 mmol/L (98-107); Creatinine Clr Calc Pharmacy 107.5492; Glomerular Filtration Rate 85.6 mL/min (90-130); Glucose 174 mg/dL (65-115); Magnesium 1.5 mg/dL (1.7-2.3); Osmolality Calculated 284 mOsm/kg (285-295); Phosphorus 3.2 mg/dL (2.5-4.5); Potassium 3.1 mmol/L (3.5-5.1); Sodium 135 mmol/L (136-145)
[2023-01-11 06:28] LABS: Glucose Point of Care 206 mg/dL (70-110)
[2023-01-11] MEDS: famotidine 20 mg/2 mL INJ IVP ×2 (06:36→18:09)
[2023-01-11] MEDS: LORazepam 0.5 mg Tablet PO (09:07)
[2023-01-11] MEDS: ferrous sulfate EC 325 mg Tablet PO (09:07)
[2023-01-11] MEDS: montelukast sodium 10 mg Tablet PO (09:07)
[2023-01-11] MEDS: BuSPIRONE 10 mg Tablet 15 MG PO ×3 (09:07→20:43)
[2023-01-11] MEDS: docusate sodium 100 mg Capsule PO (09:08)
[2023-01-11] MEDS: pantoprazole DR 40 mg Tablet PO (09:08)
[2023-01-11] MEDS: metoprolol tartrate 25 mg Tablet PO (09:08)
[2023-01-11] MEDS: apixaban 5 mg Tablet PO ×2 (09:08→18:08)
[2023-01-11] MEDS: sennosides-docusate Tablet 1 TAB PO (09:08)
[2023-01-11] MEDS: pregabalin 100 mg Capsule PO ×2 (09:08→20:43)
[2023-01-11] MEDS: aspirin 81 mg EC Tablet PO (09:08)
[2023-01-11] MEDS: magnesium sulfate premix 1 GM/100 ML PIGGYBACK IV (09:12)
[2023-01-11] MEDS: polyethylene glycol 3350 Pkt 17 gm PO (09:12)
[2023-01-11] MEDS: lidocaine 1% 5 ML in potassium chloride premix 100 ML 26.25 ML IV (09:13)
[2023-01-11] MEDS: insulin lispro 100 unit/1 mL SUBCUT ×3 (09:14→18:07)
[2023-01-11] MEDS: multivitamin therapeutic Tablet 1 TAB PO (09:17)
[2023-01-11 11:25] LABS: Glucose Point of Care 186 mg/dL (70-110)
[2023-01-11] MEDS: diclofenac 1% Topical Gel 100 gm 1 APPLIC TOPICAL (12:53)
[2023-01-11] MEDS: pregabalin 50 mg Capsule PO (13:00)
[2023-01-11] MEDS: sodium chloride 0.9% 1,000 ML 75 ML IV (15:34)
--- NOTE | 2023-01-11 16:38 | PM.PN ---
Subjective Subjective: Patient was seen this morning she tells me she feels a lot better, continues to have diffuse joint pains, no fevers, no chills, no cough Vitals/I&O/Wt Last Vital Signs Temp 98.1 F 01/11/23 12:00 Pulse 73 01/11/23 14:28 Resp 17 01/11/23 12:00 BP 149/90 01/11/23 12:00 Pulse Ox 97 01/11/23 14:28 O2 Del Method Room Air 01/11/23 08:35 01/11/23 01/11/23 01/11/23 06:59 14:59 22:59 Intake Total 50 / 100 1820 / 1820 Output Total 400 / 775 800 / 800 Balance -350 / -675 1020 / 1020 Weight last 48 hrs Weight 97.522 kg Physical Exam Const: COMMON NORMALS: no acute distress and patient oriented x3 Resp: COMMON NORMALS: normal respiratory effort, No retractions, No use of accessory muscles and clear to auscultation bilaterally AUSCULTATION: clear to auscultation bilaterally Cardio: COMMON NORMALS: regular rate, regular rhythm, S1 normal heart sound present and S2 normal heart sound present RATE: regular rate RHYTHM: regular rhythm HEART SOUNDS: S1 normal heart sound present and S2 normal heart sound present GI: COMMON NORMALS: Normal to inspection, nondistended, normoactive bowel sounds present and non-tender OTHER: Colostomy site is clean and dry, tissue/he Extremity: COMMON NORMALS: no pedal edema Neuro: COMMON NORMALS: patient oriented x3 OTHER: Right below-knee amputation Data 01/11/23 05:05 01/11/23 05:05 Micro: Microbiology 01/10/23 12:55 Urine Culture - Preliminary Urine,Clean Catch Gram Negative Rods 01/10/23 17:08 Blood Culture - Preliminary Blood SPECIMEN COLLECTED 01/10/23 17:16 Blood Culture - Preliminary Blood SPECIMEN COLLECTED A&P Assessment and plan (1) 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: (2) History of DVT (deep vein thrombosis): (3) DM II (diabetes mellitus, type II), controlled: (4) HTN (hypertension): (5) CKD (chronic kidney disease): Qualifiers: Chronic kidney disease stage: stage 2 (mild) Qualified Code(s): N18.2 - Chronic kidney disease, stage 2 (mild) Plan Urinary tract infection -Complicated with suprapubic catheter -History of prolonged hospitalization as above -Has risk factors for ESBL -Plan continue Zosyn -Follow urine cultures, blood cultures Type 2 diabetes mellitus Low-dose sliding scale History of DVT Continue Eliquis History of right below-knee amputation -PT OT History of spinal abscess, with T12-L1 decompressive laminectomy -Monitor surgical site History of chronic pain -Switch to morphine 2 mg IV push every 24 hours -Hold Celebrex -Continue baclofen -Continue cyclobenzaprine -Continue Lyrica -Continue Effexor -Continue dantrolene Anxiety and depression -Continue BuSpar, lorazepam, nortriptyline Hypertension continue metoprolol History of colostomy, continue MiraLAX History of suprapubic catheter Dehydration, IV fluids Attestations Medical Necessity Statement*: Patient requires hospitalization for UTI, IV fluids, Diagnoses 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
[2023-01-11 17:45] LABS: Glucose Point of Care 221 mg/dL (70-110)
[2023-01-11] MEDS: atorvastatin 40 mg Tablet 20 MG PO (18:07)
[2023-01-11] MEDS: quetiapine 25 mg Tablet PO (18:07)
[2023-01-11] MEDS: nortriptyline 25 mg Capsule PO (18:08)
[2023-01-11] MEDS: venlafaxine ER (24HR) 150 mg Capsule PO (18:23)
[2023-01-11 20:04] LABS: Glucose Point of Care 177 mg/dL (70-110)
[2023-01-12] VITALS (10 sets, daily range): BP systolic 118–173; BP diastolic 63–91; PULSE 70–84; RESP 16–19; TEMP 36.4–37.2; O2SAT 92–99
[2023-01-12] MEDS: piperacillin-tazobactam 3.375 GM in sodium chloride 0.9% (plus) 50 ML IV ×2 (02:24→10:27)
[2023-01-12] MEDS: sodium chloride 0.9% 1,000 ML 75 ML IV (05:01)
[2023-01-12 05:21] LABS: Basophils % 0.6 %; Eosinophils # 0.1 10^3/uL (0.0-0.8); Eosinophils % 2.1 %; Hematocrit 32.6 % (36-47); Lymphocytes # 1.3 10^3/uL (0.8-4.8); Lymphocytes % 21.5 %; Mean Corpuscular HGB Conc 30.1 g/dL (30-55); Mean Corpuscular Hemoglobin 27.8 pg (27-33); Mean Corpuscular Volume 92.6 fl (85-98); Mean Platelet Volume 8.6 fL (7.4-10.4); Monocytes # 0.5 10^3/uL (0.2-0.9); Monocytes % 8.7 %; Neutrophils # 4.14 10^3/uL (1.8-7.7); Neutrophils % 66.8 %; Nucleated Red Blood Cells % 0 %; Platelet Count 268 10^3/cmm (157-399); Red Blood Count 3.52 10^6/uL (3.85-5.65); Red Cell Distribution Width 17.1 % (12.1-15.1)
[2023-01-12 05:40] LABS: Anion Gap 12.6 (5-19); Blood Urea Nitrogen 8 mg/dL (6-20); Carbon Dioxide 24 mmol/L (22-29); Chloride 107 mmol/L (98-107); Glomerular Filtration Rate 102.3 mL/min (90-130); Glucose 183 mg/dL (65-115); Osmolality Calculated 293 mOsm/kg (285-295); Potassium 3.6 mmol/L (3.5-5.1); Sodium 140 mmol/L (136-145)
[2023-01-12] MEDS: famotidine 20 mg/2 mL INJ IVP ×2 (06:05→16:59)
[2023-01-12 06:47] LABS: Glucose Point of Care 165 mg/dL (70-110)
[2023-01-12] MEDS: morphine 4 mg/mL SDV 1 mL 2 MG IVP ×3 (09:03→16:39)
[2023-01-12] MEDS: docusate sodium 100 mg Capsule PO (10:17)
[2023-01-12] MEDS: nortriptyline 25 mg Capsule PO (10:17)
[2023-01-12] MEDS: multivitamin therapeutic Tablet 1 TAB PO (10:18)
[2023-01-12] MEDS: aspirin 81 mg EC Tablet PO (10:18)
[2023-01-12] MEDS: pregabalin 100 mg Capsule PO ×2 (10:18→21:00)
[2023-01-12] MEDS: apixaban 5 mg Tablet PO ×2 (10:18→16:45)
[2023-01-12] MEDS: ferrous sulfate EC 325 mg Tablet PO (10:18)
[2023-01-12] MEDS: BuSPIRONE 10 mg Tablet 15 MG PO ×3 (10:18→21:00)
[2023-01-12] MEDS: pantoprazole DR 40 mg Tablet PO (10:18)
[2023-01-12] MEDS: metoprolol tartrate 25 mg Tablet PO (10:19)
[2023-01-12] MEDS: sennosides-docusate Tablet 1 TAB PO ×2 (10:19→16:47)
[2023-01-12] MEDS: montelukast sodium 10 mg Tablet PO (10:19)
[2023-01-12] MEDS: insulin lispro 100 unit/1 mL SUBCUT ×2 (10:21→12:46)
[2023-01-12 11:02] LABS: Glucose Point of Care 275 mg/dL (70-110)
[2023-01-12] MEDS: pregabalin 50 mg Capsule PO (12:45)
--- NOTE | 2023-01-12 13:10 | PM.PN ---
Subjective Subjective: Patient was seen this morning, denies any fevers, no chills, no cough, [facility] Vitals/I&O/Wt Last Vital Signs Temp 98.3 F 01/12/23 10:33 Pulse 83 01/12/23 10:33 Resp 18 01/12/23 12:46 BP 145/91 01/12/23 10:33 Pulse Ox 96 01/12/23 10:33 O2 Del Method Room Air 01/11/23 08:35 01/11/23 01/12/23 01/12/23 22:59 06:59 14:59 Intake Total 635 / 2505 1050 / 3555 240 / 240 Output Total 950 / 1750 Balance 635 / 1705 100 / 1805 240 / 240 Physical Exam Const: COMMON NORMALS: no acute distress and patient oriented x3 Resp: COMMON NORMALS: normal respiratory effort, No retractions, No use of accessory muscles and clear to auscultation bilaterally AUSCULTATION: clear to auscultation bilaterally Cardio: COMMON NORMALS: regular rate, regular rhythm, S1 normal heart sound present and S2 normal heart sound present RATE: regular rate RHYTHM: regular rhythm HEART SOUNDS: S1 normal heart sound present and S2 normal heart sound present GI: COMMON NORMALS: Normal to inspection, nondistended, normoactive bowel sounds present and non-tender Extremity: COMMON NORMALS: no pedal edema Neuro: COMMON NORMALS: patient oriented x3 Psych: COMMON NORMALS: mental status grossly normal Data 01/12/23 04:50 01/12/23 04:50 Micro: Microbiology 01/10/23 12:55 Urine Culture - Preliminary Urine,Clean Catch Escherichia coli Streptococcus species 01/10/23 17:08 Blood Culture - Preliminary Blood NEGATIVE TO DATE 01/10/23 17:16 Blood Culture - Preliminary Blood NEGATIVE TO DATE A&P Assessment and plan (1) 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 coli, de-escalate antibiotics to Rocephin -Follow urine cultures, blood cultures Type 2 diabetes mellitus Low-dose sliding scale History of DVT Continue Eliquis History of right below-knee amputation -PT OT History of spinal abscess, with T12-L1 decompressive laminectomy -Monitor surgical site History of chronic pain -Switch to morphine 2 mg IV push every 24 hours -Hold Celebrex -Continue baclofen -Continue cyclobenzaprine -Continue Lyrica -Continue Effexor -Continue dantrolene Anxiety and depression -Continue BuSpar, lorazepam, nortriptyline Hypertension continue metoprolol History of colostomy, continue MiraLAX History of suprapubic catheter Dehydration resolved Deconditioning, will require residential placement Attestations Medical Necessity Statement*: Patient requires hospitalization for UTI, deconditioning, Diagnoses 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
[2023-01-12] MEDS: acetaminophen 325 mg Tablet 650 MG PO (16:38)
[2023-01-12] MEDS: atorvastatin 40 mg Tablet 20 MG PO (16:45)
[2023-01-12] MEDS: polyethylene glycol 3350 Pkt 17 gm PO (16:46)
[2023-01-12] MEDS: venlafaxine ER (24HR) 150 mg Capsule PO (16:47)
[2023-01-12] MEDS: quetiapine 25 mg Tablet PO (16:47)
[2023-01-12 16:53] LABS: Glucose Point of Care 123 mg/dL (70-110)
[2023-01-12 21:01] LABS: Glucose Point of Care 167 mg/dL (70-110)
[2023-01-12] MEDS: diclofenac 1% Topical Gel 100 gm 1 APPLIC TOPICAL (21:01)
[2023-01-12] MEDS: baclofen 10 mg Tablet PO (22:10)
[2023-01-12] MEDS: LORazepam 0.5 mg Tablet PO (22:10)
[2023-01-13] VITALS (9 sets, daily range): BP systolic 136–179; BP diastolic 79–95; PULSE 69–79; RESP 16–19; TEMP 36.4–36.9; O2SAT 95–98
[2023-01-13] MEDS: acetaminophen 325 mg Tablet 650 MG PO ×2 (00:01→09:28)
[2023-01-13] MEDS: famotidine 20 mg/2 mL INJ IVP ×2 (06:17→16:58)
[2023-01-13 06:53] LABS: Basophils % 0.8 %; Eosinophils # 0.2 10^3/uL (0.0-0.8); Eosinophils % 3.5 %; Hematocrit 31.7 % (36-47); Lymphocytes # 1.1 10^3/uL (0.8-4.8); Mean Corpuscular HGB Conc 30.9 g/dL (30-55); Mean Corpuscular Hemoglobin 27.7 pg (27-33); Mean Corpuscular Volume 89.5 fl (85-98); Mean Platelet Volume 9.1 fL (7.4-10.4); Monocytes # 0.4 10^3/uL (0.2-0.9); Monocytes % 8.7 %; Neutrophils # 3.29 10^3/uL (1.8-7.7); Neutrophils % 64.8 %; Nucleated Red Blood Cells % 0 %; Platelet Count 254 10^3/cmm (157-399); Red Blood Count 3.54 10^6/uL (3.85-5.65); Red Cell Distribution Width 16.4 % (12.1-15.1); White Blood Count 5.08 10^3/uL (3.29-11.43)
[2023-01-13 07:12] LABS: Anion Gap 13.7 (5-19); Blood Urea Nitrogen 11 mg/dL (6-20); Calcium 8.6 mg/dL (8.5-10.5); Carbon Dioxide 24 mmol/L (22-29); Chloride 107 mmol/L (98-107); Glomerular Filtration Rate 102.3 mL/min (90-130); Glucose 178 mg/dL (65-115); Osmolality Calculated 296 mOsm/kg (285-295); Potassium 3.7 mmol/L (3.5-5.1); Sodium 141 mmol/L (136-145)
[2023-01-13 07:40] LABS: Slide Review Slide Review Perform
[2023-01-13] MEDS: pregabalin 100 mg Capsule PO ×2 (09:28→20:42)
[2023-01-13] MEDS: BuSPIRONE 10 mg Tablet 15 MG PO ×3 (09:28→20:42)
[2023-01-13] MEDS: multivitamin therapeutic Tablet 1 TAB PO (09:28)
[2023-01-13] MEDS: pantoprazole DR 40 mg Tablet PO (09:28)
[2023-01-13] MEDS: aspirin 81 mg EC Tablet PO (09:28)
[2023-01-13] MEDS: cefTRIAXone 1,000 MG in sodium chloride 0.9% (plus) 50 ML 100 MG IV (09:28)
[2023-01-13] MEDS: ferrous sulfate EC 325 mg Tablet PO (09:28)
[2023-01-13] MEDS: metoprolol tartrate 25 mg Tablet PO (09:29)
[2023-01-13] MEDS: apixaban 5 mg Tablet PO ×2 (09:33→16:56)
[2023-01-13] MEDS: montelukast sodium 10 mg Tablet PO (09:33)
[2023-01-13] MEDS: oxyCODONE 5 mg IR Tab/Cap PO ×2 (10:43→18:20)
[2023-01-13 10:57] LABS: Glucose Point of Care 176 mg/dL (70-110)
[2023-01-13] MEDS: insulin lispro 100 unit/1 mL SUBCUT ×2 (12:30→17:06)
[2023-01-13] MEDS: LORazepam 0.5 mg Tablet PO ×2 (12:46→20:46)
[2023-01-13] MEDS: pregabalin 50 mg Capsule PO (12:46)
[2023-01-13] MEDS: TRAMadol 50 mg Tablet PO ×2 (15:46→20:42)
[2023-01-13 16:50] LABS: Glucose Point of Care 212 mg/dL (70-110)
[2023-01-13] MEDS: atorvastatin 40 mg Tablet 20 MG PO (16:56)
[2023-01-13] MEDS: sennosides-docusate Tablet 1 TAB PO (16:56)
[2023-01-13] MEDS: quetiapine 25 mg Tablet PO (16:57)
[2023-01-13] MEDS: polyethylene glycol 3350 Pkt 17 gm PO (16:57)
[2023-01-13] MEDS: venlafaxine ER (24HR) 150 mg Capsule PO (16:58)
--- NOTE | 2023-01-13 19:02 | P.PN_ITS ---
Subjective Subjective: States she has been quite weak. Not ready to return home. Reports she has had quite complicated medical course recently including damage to the spinal column, spinal abscess, which has made it very difficult for her to walk. She requests to resume her home pain medications as per prior schedule, oxycodone and tramadol, with discontinuation of IV morphine as she feels IV morphine has not helped her and has been causing her a headache. Vitals/I&O/Wt Last Vital Signs Temp 98.2 F 01/13/23 15:15 Pulse 79 01/13/23 15:15 Resp 18 01/13/23 18:20 BP 179/95 01/13/23 15:15 Pulse Ox 97 01/13/23 15:15 O2 Del Method Room Air 01/13/23 15:15 01/13/23 01/13/23 01/13/23 06:59 14:59 22:59 Intake Total 360 / 360 290 / 650 Output Total 500 / 950 800 / 800 850 / 1650 Balance -500 / 820 -440 / -440 -560 / -1000 Physical Exam Const: COMMON NORMALS: patient oriented x3 and alert GENERAL APPEARANCE: cooperative ORIENTATION/CONSCIOUSNESS: Yes awake HENMT: COMMON NORMALS: oropharynx normal Neck/C-Spine: COMMON NORMALS: no JVD Resp: COMMON NORMALS: normal respiratory effort and clear to auscultation bilaterally AUSCULTATION: clear to auscultation bilaterally Cardio: COMMON NORMALS: no JVD, regular rhythm, S1 normal heart sound present, S2 normal heart sound present and No murmurs present (Cardio) RHYTHM: regular rhythm HEART SOUNDS: S1 normal heart sound present and S2 normal heart sound present GI: COMMON NORMALS: Normal to inspection, nondistended, normoactive bowel sounds present, Soft to palpation and non-tender PALPATION: Yes Soft to palpation Extremity: COMMON NORMALS: no joint enlargement and no pedal edema OTHER: R bka Neuro: COMMON NORMALS: patient oriented x3 and moves all extremities SENSORIUM/ORIENTATION: Yes alert Skin: COMMON NORMALS: no rashes or lesions noted GENERAL SKIN EXAM: no rashes or lesions noted Data 01/13/23 06:04 01/13/23 06:04 Micro: Microbiology 01/10/23 12:55 Urine Culture - Final Urine,Clean Catch Escherichia coli Enterococcus faecalis A&P Assessment and plan (1) 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 coli resistant to several antibiotics and Streptococcus species, follow-up results. For now on ceftriaxone. In reviewing results of culture again, noted En terococcus. Stop ceftriaxone, switch to ciprofloxacin. -Complicated with suprapubic catheter Discussed with case management. Reviewed CBC, normal WBC. She is afebrile. Currently without signs of sepsis. Follow-up blood counts. Reviewed chemistry, noted electrolytes, renal function WNL. Follow-up chemistry. Type 2 diabetes mellitus Low-dose sliding scale History of DVT Continue Eliquis History of right below-knee amputation -PT OT History of spinal abscess, with T12-L1 decompressive laminectomy -Monitor surgical site History of chronic pain -Switch to morphine 2 mg IV push every 24 hours -Hold Celebrex -Continue baclofen -Continue cyclobenzaprine -Continue Lyrica -Continue Effexor -Continue dantrolene Anxiety and depression -Continue BuSpar, lorazepam, nortriptyline Hypertension continue metoprolol History of colostomy, continue MiraLAX History of suprapubic catheter Dehydration resolved Deconditioning, Continue work with therapy. Discussed with case management, rehab station after discharge. arrangements underway for Attestations Medical Necessity Statement*: Continue admission for assessment management of generalized weakness, complicated UTI, postdischarge planning and arrangements. 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
[2023-01-13] MEDS: ciprofloxacin 500 mg Tablet PO (19:34)
[2023-01-13] MEDS: diclofenac 1% Topical Gel 100 gm 1 APPLIC TOPICAL (19:34)
[2023-01-13] MEDS: baclofen 10 mg Tablet PO (19:39)
[2023-01-13] MEDS: nortriptyline 25 mg Capsule PO (20:41)
[2023-01-13 21:06] LABS: Glucose Point of Care 238 mg/dL (70-110)
[2023-01-14] VITALS (14 sets, daily range): BP systolic 142–175; BP diastolic 81–85; PULSE 71–84; RESP 15–18; TEMP 36.6–37.6; O2SAT 90–96
[2023-01-14] MEDS: oxyCODONE 5 mg IR Tab/Cap PO ×3 (04:52→20:41)
[2023-01-14] MEDS: baclofen 10 mg Tablet PO ×2 (04:52→20:40)
[2023-01-14] MEDS: famotidine 20 mg/2 mL INJ IVP ×2 (05:34→19:42)
[2023-01-14 06:45] LABS: Glucose Point of Care 206 mg/dL (70-110)
[2023-01-14 08:54] LABS: Basophils % 0.7 %; Eosinophils # 0.2 10^3/uL (0.0-0.8); Eosinophils % 3.2 %; Lymphocytes # 1.4 10^3/uL (0.8-4.8); Lymphocytes % 24.7 %; Mean Corpuscular HGB Conc 31.1 g/dL (30-55); Mean Corpuscular Hemoglobin 27.8 pg (27-33); Mean Corpuscular Volume 89.3 fl (85-98); Mean Platelet Volume 8.7 fL (7.4-10.4); Monocytes # 0.5 10^3/uL (0.2-0.9); Monocytes % 8.3 %; Neutrophils # 3.54 10^3/uL (1.8-7.7); Neutrophils % 62.9 %; Nucleated Red Blood Cells % 0 %; Platelet Count 305 10^3/cmm (157-399); Red Blood Count 3.92 10^6/uL (3.85-5.65); Red Cell Distribution Width 16.4 % (12.1-15.1); White Blood Count 5.63 10^3/uL (3.29-11.43)
[2023-01-14 09:31] LABS: Blood Urea Nitrogen 12 mg/dL (6-20); Calcium 8.7 mg/dL (8.5-10.5); Carbon Dioxide 25 mmol/L (22-29); Chloride 103 mmol/L (98-107); Creatinine Clr Calc Pharmacy 107.5492; Glomerular Filtration Rate 85.6 mL/min (90-130); Glucose 188 mg/dL (65-115); Osmolality Calculated 291 mOsm/kg (285-295); Sodium 138 mmol/L (136-145)
[2023-01-14 09:35] LABS: Anion Gap 14.1 (5-19); Potassium 4.1 mmol/L (3.5-5.1)
[2023-01-14] MEDS: ciprofloxacin 500 mg Tablet PO ×2 (10:08→20:41)
[2023-01-14] MEDS: docusate sodium 100 mg Capsule PO (10:08)
[2023-01-14] MEDS: aspirin 81 mg EC Tablet PO (10:08)
[2023-01-14] MEDS: ferrous sulfate EC 325 mg Tablet PO (10:08)
[2023-01-14] MEDS: montelukast sodium 10 mg Tablet PO (10:08)
[2023-01-14] MEDS: apixaban 5 mg Tablet PO ×2 (10:08→17:36)
[2023-01-14] MEDS: BuSPIRONE 10 mg Tablet 15 MG PO ×3 (10:09→20:40)
[2023-01-14] MEDS: sennosides-docusate Tablet 1 TAB PO ×2 (10:09→17:36)
[2023-01-14] MEDS: pantoprazole DR 40 mg Tablet PO (10:09)
[2023-01-14] MEDS: metoprolol tartrate 25 mg Tablet PO (10:09)
[2023-01-14] MEDS: pregabalin 100 mg Capsule PO ×2 (10:09→20:45)
[2023-01-14] MEDS: multivitamin therapeutic Tablet 1 TAB PO (10:09)
[2023-01-14] MEDS: insulin lispro 100 unit/1 mL SUBCUT ×3 (10:10→18:24)
[2023-01-14 11:57] LABS: Glucose Point of Care 210 mg/dL (70-110)
[2023-01-14] MEDS: pregabalin 50 mg Capsule PO (12:33)
--- NOTE | 2023-01-14 15:12 | P.PN_ITS ---
Subjective Subjective: Without additional new symptoms. Working with therapy. Vitals/I&O/Wt Last Vital Signs Temp 98.5 F 01/14/23 12:00 Pulse 73 01/14/23 12:00 Resp 17 01/14/23 12:00 BP 144/85 01/14/23 12:00 Pulse Ox 93 01/14/23 12:00 O2 Del Method CPAP 01/14/23 04:00 01/14/23 01/14/23 01/14/23 06:59 14:59 22:59 Intake Total 360 / 360 Output Total 425 / 2875 Balance -425 / -1865 360 / 360 Physical Exam Narrative: Sitting up with therapy at edge of bed. Const: COMMON NORMALS: patient oriented x3 and alert GENERAL APPEARANCE: cooperative ORIENTATION/CONSCIOUSNESS: Yes awake HENMT: COMMON NORMALS: oropharynx normal Neck/C-Spine: COMMON NORMALS: no JVD Resp: COMMON NORMALS: normal respiratory effort and clear to auscultation bilaterally AUSCULTATION: clear to auscultation bilaterally Cardio: COMMON NORMALS: no JVD, regular rhythm, S1 normal heart sound present, S2 normal heart sound present and No murmurs present (Cardio) RHYTHM: regular rhythm HEART SOUNDS: S1 normal heart sound present and S2 normal heart sound present GI: COMMON NORMALS: Normal to inspection, nondistended, normoactive bowel sounds present, Soft to palpation and non-tender PALPATION: Yes Soft to palpation Extremity: COMMON NORMALS: no joint enlargement and no pedal edema OTHER: R bka Neuro: COMMON NORMALS: patient oriented x3 and moves all extremities SENSORIUM/ORIENTATION: Yes alert Skin: COMMON NORMALS: no rashes or lesions noted GENERAL SKIN EXAM: no rashes or lesions noted Data 01/14/23 08:43 01/14/23 08:43 Micro: Microbiology 01/10/23 12:55 Urine Culture - Final Urine,Clean Catch Escherichia coli Enterococcus faecalis A&P Assessment and plan (1) 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 MDRO E. coli. Enterococcus. Discussed with her again. Continue ciprofloxacin. -Complicated with suprapubic catheter Discussed with case management. They are working on placement. Reviewed CBC, normal WBC. She is afebrile. Currently without signs of sepsis. Follow-up blood counts. Reviewed chemistry, noted electrolytes, renal function WNL. Follow-up chemistry. Type 2 diabetes mellitus Low-dose sliding scale History of DVT Continue Eliquis History of right below-knee amputation -PT OT History of spinal abscess, with T12-L1 decompressive laminectomy -Monitor surgical site History of chronic pain -Switch to morphine 2 mg IV push every 24 hours -Hold Celebrex -Continue baclofen -Continue cyclobenzaprine -Continue Lyrica -Continue Effexor -Continue dantrolene Anxiety and depression -Continue BuSpar, lorazepam, nortriptyline Hypertension continue metoprolol History of colostomy, continue MiraLAX History of suprapubic catheter Dehydration resolved Deconditioning, Continue work with therapy. Discussed with case management, rehab station after discharge. arrangements underway for Attestations Medical Necessity Statement*: Continue admission for assessment management of generalized weakness, complicated UTI, postdischarge planning and arrangements. 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
--- NOTE | 2023-01-14 17:00 | PC.NURSE ---
Pt Money: Beginning count $306 Pt removed $25
[2023-01-14] MEDS: quetiapine 25 mg Tablet PO (17:36)
[2023-01-14] MEDS: venlafaxine ER (24HR) 150 mg Capsule PO (17:36)
[2023-01-14] MEDS: nortriptyline 25 mg Capsule PO (17:36)
[2023-01-14] MEDS: atorvastatin 40 mg Tablet 20 MG PO (17:36)
[2023-01-14 17:40] LABS: Glucose Point of Care 164 mg/dL (70-110)
[2023-01-14] MEDS: acetaminophen 325 mg Tablet 650 MG PO (20:41)
[2023-01-14 20:57] LABS: Glucose Point of Care 228 mg/dL (70-110)
[2023-01-15] VITALS (12 sets, daily range): BP systolic 125–165; BP diastolic 79–93; PULSE 60–76; RESP 17–22; TEMP 36.4–36.9; O2SAT 94–97
[2023-01-15] MEDS: baclofen 10 mg Tablet PO (05:36)
[2023-01-15] MEDS: oxyCODONE 5 mg IR Tab/Cap PO ×2 (05:36→15:59)
[2023-01-15] MEDS: acetaminophen 325 mg Tablet 650 MG PO (05:36)
[2023-01-15] MEDS: famotidine 20 mg/2 mL INJ IVP ×2 (05:44→18:39)
[2023-01-15 06:42] LABS: Glucose Point of Care 180 mg/dL (70-110)
[2023-01-15] MEDS: multivitamin therapeutic Tablet 1 TAB PO (08:54)
[2023-01-15] MEDS: polyethylene glycol 3350 Pkt 17 gm PO ×2 (08:54→17:59)
[2023-01-15] MEDS: pregabalin 100 mg Capsule PO ×2 (08:54→22:29)
[2023-01-15] MEDS: ferrous sulfate EC 325 mg Tablet PO (08:54)
[2023-01-15] MEDS: BuSPIRONE 10 mg Tablet 15 MG PO ×3 (08:55→22:27)
[2023-01-15] MEDS: docusate sodium 100 mg Capsule PO (08:56)
[2023-01-15] MEDS: montelukast sodium 10 mg Tablet PO (08:56)
[2023-01-15] MEDS: ciprofloxacin 500 mg Tablet PO ×2 (08:56→22:29)
[2023-01-15] MEDS: pantoprazole DR 40 mg Tablet PO (08:56)
[2023-01-15] MEDS: aspirin 81 mg EC Tablet PO (08:56)
[2023-01-15] MEDS: insulin lispro 100 unit/1 mL SUBCUT ×3 (08:56→17:58)
[2023-01-15] MEDS: metoprolol tartrate 25 mg Tablet PO (08:56)
[2023-01-15] MEDS: sennosides-docusate Tablet 1 TAB PO ×2 (08:56→18:00)
[2023-01-15] MEDS: apixaban 5 mg Tablet PO ×2 (08:56→18:00)
[2023-01-15 11:39] LABS: Glucose Point of Care 197 mg/dL (70-110)
[2023-01-15] MEDS: pregabalin 50 mg Capsule PO (12:33)
[2023-01-15 17:01] LABS: Glucose Point of Care 220 mg/dL (70-110)
--- NOTE | 2023-01-15 17:03 | P.PN_ITS ---
Subjective Subjective: No new symptoms, no worsening. Has been working with therapy. Vitals/I&O/Wt Last Vital Signs Temp 98.5 F 01/15/23 16:00 Pulse 69 01/15/23 16:00 Resp 22 H 01/15/23 16:00 BP 160/91 01/15/23 16:00 Pulse Ox 97 01/15/23 16:00 O2 Del Method Room Air 01/15/23 16:00 01/15/23 01/15/23 01/15/23 06:59 14:59 22:59 Intake Total 800 / 800 Output Total 350 / 1300 Balance -350 / -700 800 / 800 Physical Exam Narrative: Sitting up with therapy at edge of bed. Const: COMMON NORMALS: patient oriented x3 and alert GENERAL APPEARANCE: cooperative ORIENTATION/CONSCIOUSNESS: Yes awake HENMT: COMMON NORMALS: oropharynx normal Neck/C-Spine: COMMON NORMALS: no JVD Resp: COMMON NORMALS: normal respiratory effort and clear to auscultation bilaterally AUSCULTATION: clear to auscultation bilaterally Cardio: COMMON NORMALS: no JVD, regular rhythm, S1 normal heart sound present, S2 normal heart sound present and No murmurs present (Cardio) RHYTHM: regular rhythm HEART SOUNDS: S1 normal heart sound present and S2 normal heart sound present GI: COMMON NORMALS: Normal to inspection, nondistended, normoactive bowel sounds present, Soft to palpation and non-tender PALPATION: Yes Soft to palpation Extremity: COMMON NORMALS: no joint enlargement and no pedal edema OTHER: R bka Neuro: COMMON NORMALS: patient oriented x3 and moves all extremities SENSORIUM/ORIENTATION: Yes alert Skin: COMMON NORMALS: no rashes or lesions noted GENERAL SKIN EXAM: no rashes or lesions noted Data 01/14/23 08:43 01/14/23 08:43 Micro: Microbiology 01/10/23 17:16 Blood Culture - Preliminary Blood A&P Assessment and plan (1) 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 Discussed with case management, awaiting arrangements to proceed to rehabilitation. Complicated UTI. MDRO E. coli. Enterococcus. Discussed with her again. Continue ciprofloxacin. -Complicated with suprapubic catheter She is afebrile. Type 2 diabetes mellitus: Reviewed glucose, noted to 20. Continue sliding scale insulin. Change to con sistent carb diet. We will add 5 units of Lantus. Low-dose sliding scale History of DVT Continue Eliquis History of right below-knee amputation -PT OT History of spinal abscess, with T12-L1 decompressive laminectomy -Monitor surgical site History of chronic pain -Switch to morphine 2 mg IV push every 24 hours -Hold Celebrex -Continue baclofen -Continue cyclobenzaprine -Continue Lyrica -Continue Effexor -Continue dantrolene Anxiety and depression -Continue BuSpar, lorazepam, nortriptyline Hypertension continue metoprolol History of colostomy, continue MiraLAX History of suprapubic catheter Dehydration resolved Deconditioning, Continue work with therapy. Discussed with case management, rehab station after discharge. arrangements underway for Attestations Medical Necessity Statement*: Continue admission for assessment management of generalized weakness, complicated UTI, postdischarge planning and arrangements. 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
[2023-01-15] MEDS: venlafaxine ER (24HR) 150 mg Capsule PO (17:59)
[2023-01-15] MEDS: atorvastatin 40 mg Tablet 20 MG PO (17:59)
[2023-01-15] MEDS: quetiapine 25 mg Tablet PO (18:00)
[2023-01-15] MEDS: nortriptyline 25 mg Capsule PO (18:19)
[2023-01-15 21:08] LABS: Glucose Point of Care 208 mg/dL (70-110)
[2023-01-15] MEDS: insulin glargine 100 units/1 mL 5 UNIT SUBCUT (22:29)
[2023-01-16] VITALS (12 sets, daily range): BP systolic 132–175; BP diastolic 80–84; PULSE 61–89; RESP 14–18; TEMP 36.4–37; O2SAT 91–97
[2023-01-16] MEDS: oxyCODONE 5 mg IR Tab/Cap PO ×3 (05:14→16:12)
[2023-01-16] MEDS: baclofen 10 mg Tablet PO (05:25)
[2023-01-16 06:29] LABS: Glucose Point of Care 234 mg/dL (70-110)
[2023-01-16] MEDS: famotidine 20 mg/2 mL INJ IVP ×2 (07:49→21:06)
[2023-01-16] MEDS: insulin lispro 100 unit/1 mL SUBCUT ×3 (07:50→17:54)
[2023-01-16] MEDS: TRAMadol 50 mg Tablet PO ×2 (08:07→12:27)
[2023-01-16] MEDS: apixaban 5 mg Tablet PO ×2 (09:17→17:54)
[2023-01-16] MEDS: multivitamin therapeutic Tablet 1 TAB PO (09:17)
[2023-01-16] MEDS: sennosides-docusate Tablet 1 TAB PO ×2 (09:17→17:55)
[2023-01-16] MEDS: aspirin 81 mg EC Tablet PO (09:17)
[2023-01-16] MEDS: ferrous sulfate EC 325 mg Tablet PO (09:18)
[2023-01-16] MEDS: docusate sodium 100 mg Capsule PO (09:18)
[2023-01-16] MEDS: pantoprazole DR 40 mg Tablet PO (09:18)
[2023-01-16] MEDS: montelukast sodium 10 mg Tablet PO (09:18)
[2023-01-16] MEDS: metoprolol tartrate 25 mg Tablet PO (09:18)
[2023-01-16] MEDS: pregabalin 100 mg Capsule PO (09:18)
[2023-01-16] MEDS: BuSPIRONE 10 mg Tablet 15 MG PO ×3 (09:18→20:07)
[2023-01-16] MEDS: ciprofloxacin 500 mg Tablet PO ×2 (09:26→20:07)
[2023-01-16] MEDS: polyethylene glycol 3350 Pkt 17 gm PO ×2 (09:27→17:55)
[2023-01-16] MEDS: diclofenac 1% Topical Gel 100 gm 1 APPLIC TOPICAL (11:53)
[2023-01-16] MEDS: pregabalin 50 mg Capsule PO (11:53)
[2023-01-16 12:16] LABS: Glucose Point of Care 219 mg/dL (70-110)
--- NOTE | 2023-01-16 12:39 | PM.PN ---
Subjective Subjective: She request to have some becker with her breakfast today. Discussed long-term optimization of diet, heart healthy diet, optimization of hypertension control. Otherwise denies any new symptoms. Vitals/I&O/Wt Last Vital Signs Temp 98.6 F 01/16/23 12:00 Pulse 80 01/16/23 12:00 Resp 16 01/16/23 12:00 BP 144/80 01/16/23 12:00 Pulse Ox 92 01/16/23 12:00 O2 Del Method Room Air 01/15/23 20:00 01/15/23 01/16/23 01/16/23 22:59 06:59 14:59 Intake Total 480 / 1280 Output Total 950 / 950 650 / 1600 200 / 200 Balance -470 / 330 -650 / -320 -200 / -200 Physical Exam Narrative: Sitting up with therapy at edge of bed. Const: COMMON NORMALS: patient oriented x3 and alert GENERAL APPEARANCE: cooperative ORIENTATION/CONSCIOUSNESS: Yes awake HENMT: COMMON NORMALS: oropharynx normal Neck/C-Spine: COMMON NORMALS: no JVD Resp: COMMON NORMALS: normal respiratory effort and clear to auscultation bilaterally AUSCULTATION: clear to auscultation bilaterally Cardio: COMMON NORMALS: no JVD, regular rhythm, S1 normal heart sound present, S2 normal heart sound present and No murmurs present (Cardio) RHYTHM: regular rhythm HEART SOUNDS: S1 normal heart sound present and S2 normal heart sound present GI: COMMON NORMALS: Normal to inspection, nondistended, normoactive bowel sounds present, Soft to palpation and non-tender PALPATION: Yes Soft to palpation Extremity: COMMON NORMALS: no joint enlargement and no pedal edema OTHER: R bka Neuro: COMMON NORMALS: patient oriented x3 and moves all extremities SENSORIUM/ORIENTATION: Yes alert Skin: COMMON NORMALS: no rashes or lesions noted GENERAL SKIN EXAM: no rashes or lesions noted Data 01/14/23 08:43 01/14/23 08:43 Micro: Microbiology 01/10/23 17:08 Blood Culture - Final Blood NO GROWTH AFTER 5 DAYS A&P Assessment and plan (1) 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 Complicated UTI. MDRO E. coli. Enterococcus. Discussed with her again. Continue ciprofloxacin. -Complicated with suprapubic catheter She is afebrile. Type 2 diabetes mellitus: Cont Lantus. Low-dose sliding scale History of DVT Continue Eliquis History of right below-knee amputation -PT OT History of spinal abscess, with T12-L1 decompressive laminectomy -Monitor surgical site History of chronic pain -Switch to morphine 2 mg IV push every 24 hours -Hold Celebrex -Continue baclofen -Continue cyclobenzaprine -Continue Lyrica -Continue Effexor -Continue dantrolene Anxiety and depression -Continue BuSpar, lorazepam, nortriptyline Hypertension continue metoprolol History of colostomy, continue MiraLAX History of suprapubic catheter Dehydration resolved Deconditioning, Continue work with therapy. Discussed with case management, rehab station after discharge. arrangements underway for Attestations Medical Necessity Statement*: Continue admission for assessment management of generalized weakness, complicated UTI, postdischarge planning and arrangements. 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
--- NOTE | 2023-01-16 16:35 | PC.NURSE ---
Patient changed ostomy by self.
[2023-01-16 17:11] LABS: Glucose Point of Care 162 mg/dL (70-110)
[2023-01-16] MEDS: atorvastatin 40 mg Tablet 20 MG PO (17:54)
[2023-01-16] MEDS: quetiapine 25 mg Tablet PO (17:54)
[2023-01-16] MEDS: nortriptyline 25 mg Capsule PO (17:54)
[2023-01-16] MEDS: venlafaxine ER (24HR) 150 mg Capsule PO (17:54)
[2023-01-16 20:23] LABS: Glucose Point of Care 159 mg/dL (70-110)
[2023-01-16] MEDS: insulin glargine 100 units/1 mL 5 UNIT SUBCUT (20:56)
--- NOTE | 2023-01-16 23:13 | PC.NURSE ---
pt lethargic during assessment, able to answer questions appropriately but requires constant verbal and physical stimuli to keep awake to answer. VS stable, Blood sugar stable. Dr. Driver informed.
[2023-01-17] VITALS (9 sets, daily range): BP systolic 113–145; BP diastolic 72–90; PULSE 60–106; RESP 14–17; TEMP 36.5–37.5; O2SAT 91–96
--- NOTE | 2023-01-17 02:40 | PC.NURSE ---
pt crying, bipap off, eye open, nurse asked what is wrong and pt denied anything wrong, no c/o pain at this time, she refuse to put bipap back on.
[2023-01-17 06:45] LABS: Glucose Point of Care 187 mg/dL (70-110)
[2023-01-17] MEDS: baclofen 10 mg Tablet PO ×2 (07:39→17:13)
[2023-01-17] MEDS: insulin lispro 100 unit/1 mL SUBCUT ×3 (08:31→18:10)
[2023-01-17] MEDS: montelukast sodium 10 mg Tablet PO (08:33)
[2023-01-17] MEDS: docusate sodium 100 mg Capsule PO (08:33)
[2023-01-17] MEDS: pantoprazole DR 40 mg Tablet PO (08:33)
[2023-01-17] MEDS: metoprolol tartrate 25 mg Tablet PO (08:34)
[2023-01-17] MEDS: BuSPIRONE 10 mg Tablet 15 MG PO ×3 (08:34→20:39)
[2023-01-17] MEDS: pregabalin 100 mg Capsule PO ×2 (08:35→20:39)
[2023-01-17] MEDS: ciprofloxacin 500 mg Tablet PO ×2 (08:35→20:39)
[2023-01-17] MEDS: sennosides-docusate Tablet 1 TAB PO ×2 (08:35→17:13)
[2023-01-17] MEDS: multivitamin therapeutic Tablet 1 TAB PO (08:35)
[2023-01-17] MEDS: aspirin 81 mg EC Tablet PO (08:36)
[2023-01-17] MEDS: apixaban 5 mg Tablet PO ×2 (08:36→17:13)
[2023-01-17] MEDS: ferrous sulfate EC 325 mg Tablet PO (08:36)
[2023-01-17] MEDS: polyethylene glycol 3350 Pkt 17 gm PO (08:36)
[2023-01-17] MEDS: famotidine 20 mg/2 mL INJ IVP ×2 (08:40→21:55)
[2023-01-17 10:55] LABS: Glucose Point of Care 208 mg/dL (70-110)
--- NOTE | 2023-01-17 12:31 | P.PN_ITS ---
Vitals/I&O/Wt Last Vital Signs Temp 98.1 F 01/17/23 07:46 Pulse 77 01/17/23 07:46 Resp 16 01/17/23 07:46 BP 130/83 01/17/23 07:46 Pulse Ox 96 01/17/23 07:46 O2 Del Method CPAP 01/17/23 00:00 01/16/23 01/17/23 01/17/23 22:59 06:59 14:59 Intake Total 60 / 60 Output Total 700 / 900 225 / 1125 Balance -640 / -840 -225 / -1065 Physical Exam Narrative: Sitting up with therapy at edge of bed. Const: COMMON NORMALS: patient oriented x3 and alert GENERAL APPEARANCE: cooperative ORIENTATION/CONSCIOUSNESS: Yes awake HENMT: COMMON NORMALS: oropharynx normal Neck/C-Spine: COMMON NORMALS: no JVD Resp: COMMON NORMALS: normal respiratory effort and clear to auscultation bilaterally AUSCULTATION: clear to auscultation bilaterally Cardio: COMMON NORMALS: no JVD, regular rhythm, S1 normal heart sound present, S2 normal heart sound present and No murmurs present (Cardio) RHYTHM: regular rhythm HEART SOUNDS: S1 normal heart sound present and S2 normal heart sound present GI: COMMON NORMALS: Normal to inspection, nondistended, normoactive bowel sounds present, Soft to palpation and non-tender PALPATION: Yes Soft to palpation Extremity: COMMON NORMALS: no joint enlargement and no pedal edema OTHER: R bka Neuro: COMMON NORMALS: patient oriented x3 and moves all extremities SENSORIUM/ORIENTATION: Yes alert Skin: COMMON NORMALS: no rashes or lesions noted GENERAL SKIN EXAM: no rashes or lesions noted Data 01/14/23 08:43 01/14/23 08:43 A&P Assessment and plan (1) 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 Cipro course until 01/18 Discussed with case management -arrangements underway for rehabilitation. Complicated UTI. MDRO E. coli. Enterococcus. Discussed with her again. Continue ciprofloxacin. -Complicated with suprapubic catheter She is afebrile. Type 2 diabetes mellitus: Cont Lantus. Low-dose sliding scale History of DVT Continue Eliquis History of right below-knee amputation -PT OT History of spinal abscess, with T12-L1 decompressive laminectomy -Monitor surgical site History of chronic pain -Switch to morphine 2 mg IV push every 24 hours -Hold Celebrex -Continue baclofen -Continue cyclobenzaprine -Continue Lyrica -Continue Effexor -Continue dantrolene Anxiety and depression -Continue BuSpar, lorazepam, nortriptyline Hypertension continue metoprolol History of colostomy, continue MiraLAX History of suprapubic catheter Dehydration resolved Deconditioning, Continue work with therapy. Discussed with case management, rehab station after discharge. arrangements underway for Attestations Medical Necessity Statement*: Continue admission for assessment management of generalized weakness, compli cated UTI, rehabilitation planning and arrangements. 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
[2023-01-17] MEDS: TRAMadol 50 mg Tablet PO ×2 (12:42→17:13)
[2023-01-17] MEDS: pregabalin 50 mg Capsule PO (12:42)
[2023-01-17] MEDS: atorvastatin 40 mg Tablet 20 MG PO (17:13)
[2023-01-17] MEDS: nortriptyline 25 mg Capsule PO (17:13)
[2023-01-17] MEDS: quetiapine 25 mg Tablet PO (17:13)
[2023-01-17] MEDS: venlafaxine ER (24HR) 150 mg Capsule PO (17:14)
[2023-01-17 17:28] LABS: Glucose Point of Care 146 mg/dL (70-110)
[2023-01-17] MEDS: insulin glargine 100 units/1 mL 5 UNIT SUBCUT (20:40)
[2023-01-17 21:03] LABS: Glucose Point of Care 369 mg/dL (70-110)
--- NOTE | 2023-01-17 22:54 | PC.NURSE ---
pt had been requesting her prn tramadol; went in the rom to give it and patient was resting comfortably. Tried waking patient up with verbal stimulation with no results. Will try again later.
[2023-01-18] VITALS (11 sets, daily range): BP systolic 144–164; BP diastolic 76–86; PULSE 63–78; RESP 14–18; TEMP 36.6–36.9; O2SAT 92–96
[2023-01-18] MEDS: TRAMadol 50 mg Tablet PO ×3 (03:42→18:36)
[2023-01-18] MEDS: baclofen 10 mg Tablet PO ×2 (03:43→10:29)
[2023-01-18 06:44] LABS: Glucose Point of Care 176 mg/dL (70-110)
[2023-01-18] MEDS: docusate sodium 100 mg Capsule PO (09:55)
[2023-01-18] MEDS: BuSPIRONE 10 mg Tablet 15 MG PO ×3 (09:55→20:48)
[2023-01-18] MEDS: pregabalin 100 mg Capsule PO ×2 (09:55→20:47)
[2023-01-18] MEDS: famotidine 20 mg/2 mL INJ IVP ×2 (09:55→22:08)
[2023-01-18] MEDS: sennosides-docusate Tablet 1 TAB PO ×2 (09:57→17:18)
[2023-01-18] MEDS: montelukast sodium 10 mg Tablet PO (09:57)
[2023-01-18] MEDS: pantoprazole DR 40 mg Tablet PO (09:57)
[2023-01-18] MEDS: ferrous sulfate EC 325 mg Tablet PO (09:57)
[2023-01-18] MEDS: apixaban 5 mg Tablet PO ×2 (09:57→17:18)
[2023-01-18] MEDS: multivitamin therapeutic Tablet 1 TAB PO (09:57)
[2023-01-18] MEDS: metoprolol tartrate 25 mg Tablet PO (09:58)
[2023-01-18] MEDS: aspirin 81 mg EC Tablet PO (09:58)
[2023-01-18] MEDS: insulin lispro 100 unit/1 mL SUBCUT ×3 (10:07→17:16)
[2023-01-18] MEDS: ciprofloxacin 500 mg Tablet PO ×2 (10:07→20:48)
[2023-01-18 11:43] LABS: Glucose Point of Care 211 mg/dL (70-110)
[2023-01-18] MEDS: pregabalin 50 mg Capsule PO (11:52)
--- NOTE | 2023-01-18 14:23 | P.PN_ITS ---
Subjective Subjective: She is having some back pain today. States that she would like to be turned even if she is sleeping. She would be agreeable to try some capsaicin cream. Vitals/I&O/Wt Last Vital Signs Temp 98.2 F 01/18/23 12:00 Pulse 71 01/18/23 12:00 Resp 18 01/18/23 12:00 BP 146/76 01/18/23 12:00 Pulse Ox 95 01/18/23 12:00 O2 Del Method CPAP 01/18/23 04:14 O2 Flow Rate 2 01/17/23 20:00 01/17/23 01/18/23 01/18/23 22:59 06:59 14:59 Intake Total 240 / 240 Output Total 750 / 750 250 / 1000 Balance -750 / -750 -250 / -1000 240 / 240 Physical Exam Narrative: Sitting up with therapy at edge of bed. Const: COMMON NORMALS: patient oriented x3 and alert GENERAL APPEARANCE: cooperative ORIENTATION/CONSCIOUSNESS: Yes awake HENMT: COMMON NORMALS: oropharynx normal Neck/C-Spine: COMMON NORMALS: no JVD Resp: COMMON NORMALS: normal respiratory effort and clear to auscultation bilaterally AUSCULTATION: clear to auscultation bilaterally Cardio: COMMON NORMALS: no JVD, regular rhythm, S1 normal heart sound present, S2 normal heart sound present and No murmurs present (Cardio) RHYTHM: regular rhythm HEART SOUNDS: S1 normal heart sound present and S2 normal heart sound present GI: COMMON NORMALS: Normal to inspection, nondistended, normoactive bowel sounds present, Soft to palpation and non-tender PALPATION: Yes Soft to palpation Extremity: COMMON NORMALS: no joint enlargement and no pedal edema OTHER: R bka Neuro: COMMON NORMALS: patient oriented x3 and moves all extremities SE NSORIUM/ORIENTATION: Yes alert Skin: COMMON NORMALS: no rashes or lesions noted GENERAL SKIN EXAM: no rashes or lesions noted Data 01/14/23 08:43 01/14/23 08:43 A&P Assessment and plan (1) 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 Pending placement. Cipro course until 01/18 Discussed with case management -arrangements underway for rehabilitation. Complicated UTI. MDRO E. coli. Enterococcus. Discussed with her again. Continue ciprofloxacin. -Complicated with suprapubic catheter She is afebrile. Back pain: States back has become sore after sleeping. States that wants to be turned even when she is sleeping. Discussed w nursing. Capsaicin as needed. Monitor symptoms. We will recheck CBC. Remains afebrile. Type 2 diabetes mellitus: Reviewed Accu-Cheks. Noted some fluctuation in glucose as high as 369 but also as low as 146. Will not go up on Lantus at this time due to risk of. Continue sliding scale. CC diet. Cont Lantus. Low-dose sliding scale History of DVT Continue Eliquis History of right below-knee amputation -PT OT History of spinal abscess, with T12-L1 decompressive laminectomy -Monitor surgical site History of chronic pain -Switch to morphine 2 mg IV push every 24 hours -Hold Celebrex -Continue baclofen -Continue cyclobenzaprine -Continue Lyrica -Continue Effexor -Continue dantrolene Anxiety and depression -Continue BuSpar, lorazepam, nortriptyline Hypertension continue metoprolol History of colostomy, continue MiraLAX History of suprapubic catheter Dehydration resolved Deconditioning, Continue work with therapy. Rehab station after discharge. arrangements underway for Attestations Medical Necessity Statement*: Continue admission for assessment management of generalized weakness, complicated UTI, rehabilitation planning and arrangements. 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
[2023-01-18 17:02] LABS: Glucose Point of Care 150 mg/dL (70-110)
[2023-01-18] MEDS: atorvastatin 40 mg Tablet 20 MG PO (17:17)
[2023-01-18] MEDS: quetiapine 25 mg Tablet PO (17:18)
[2023-01-18] MEDS: venlafaxine ER (24HR) 150 mg Capsule PO (17:18)
[2023-01-18] MEDS: nortriptyline 25 mg Capsule PO (17:25)
[2023-01-18 20:34] LABS: Glucose Point of Care 203 mg/dL (70-110)
[2023-01-18] MEDS: insulin glargine 100 units/1 mL 5 UNIT SUBCUT (20:48)
[2023-01-19] VITALS (12 sets, daily range): BP systolic 150–167; BP diastolic 81–96; PULSE 66–86; RESP 16–17; TEMP 36.1–37.2; O2SAT 94–97
[2023-01-19] MEDS: TRAMadol 50 mg Tablet PO ×3 (04:18→18:41)
[2023-01-19] MEDS: baclofen 10 mg Tablet PO ×3 (04:18→18:41)
[2023-01-19 05:17] LABS: Basophils # 0.1 10^3/uL (0.0-0.1); Basophils % 0.7 %; Eosinophils # 0.1 10^3/uL (0.0-0.8); Eosinophils % 1.9 %; Hematocrit 38.2 % (36-47); Lymphocytes # 1.9 10^3/uL (0.8-4.8); Lymphocytes % 28.1 %; Mean Corpuscular HGB Conc 28.8 g/dL (30-55); Mean Corpuscular Volume 97.2 fl (85-98); Mean Platelet Volume 9.2 fL (7.4-10.4); Monocytes # 0.7 10^3/uL (0.2-0.9); Monocytes % 10.8 %; Neutrophils % 58.2 %; Nucleated Red Blood Cells % 0 %; Platelet Count 301 10^3/cmm (157-399); Red Blood Count 3.93 10^6/uL (3.85-5.65); Red Cell Distribution Width 16.2 % (12.1-15.1); White Blood Count 6.87 10^3/uL (3.29-11.43)
[2023-01-19 07:03] LABS: Glucose Point of Care 183 mg/dL (70-110)
[2023-01-19] MEDS: pantoprazole DR 40 mg Tablet PO (08:17)
[2023-01-19] MEDS: montelukast sodium 10 mg Tablet PO (08:17)
[2023-01-19] MEDS: aspirin 81 mg EC Tablet PO (08:17)
[2023-01-19] MEDS: apixaban 5 mg Tablet PO ×2 (08:17→18:41)
[2023-01-19] MEDS: BuSPIRONE 10 mg Tablet 15 MG PO ×3 (08:18→21:13)
[2023-01-19] MEDS: ferrous sulfate EC 325 mg Tablet PO (08:18)
[2023-01-19] MEDS: metoprolol tartrate 25 mg Tablet PO (08:18)
[2023-01-19] MEDS: multivitamin therapeutic Tablet 1 TAB PO (08:18)
[2023-01-19] MEDS: pregabalin 100 mg Capsule PO ×2 (08:18→21:13)
[2023-01-19] MEDS: insulin lispro 100 unit/1 mL SUBCUT ×3 (08:19→18:41)
[2023-01-19] MEDS: docusate sodium 100 mg Capsule PO (08:20)
[2023-01-19] MEDS: sennosides-docusate Tablet 1 TAB PO ×2 (08:21→18:38)
[2023-01-19] MEDS: famotidine 20 mg/2 mL INJ IVP ×2 (08:32→21:21)
[2023-01-19] MEDS: ciprofloxacin 500 mg Tablet PO ×2 (08:32→21:13)
[2023-01-19 11:37] LABS: Glucose Point of Care 221 mg/dL (70-110)
[2023-01-19] MEDS: pregabalin 50 mg Capsule PO (11:58)
--- NOTE | 2023-01-19 13:34 | P.PN_ITS ---
Subjective Subjective: She reports she is doing better today. No back pain. He is very happy as she was turned every 2 hours overnight. So far has not needed to request for capsaicin. Vitals/I&O/Wt Last Vital Signs Temp 99.0 F 01/19/23 11:21 Pulse 67 01/19/23 11:21 Resp 17 01/19/23 11:21 BP 150/84 01/19/23 11:21 Pulse Ox 95 01/19/23 11:21 O2 Del Method CPAP 01/18/23 04:14 O2 Flow Rate 2 01/17/23 20:00 01/18/23 01/19/23 01/19/23 22:59 06:59 14:59 Intake Total 360 / 600 600 / 600 Output Total 500 / 500 Balance 360 / 600 -500 / 100 600 / 600 Physical Exam Narrative: Reclined in bed, on video call with her sister. Const: COMMON NORMALS: patient oriented x3 and alert GENERAL APPEARANCE: cooperative ORIENTATION/CONSCIOUSNESS: Yes awake HENMT: COMMON NORMALS: oropharynx normal Neck/C-Spine: COMMON NORMALS: no JVD Resp: COMMON NORMALS: normal respiratory effort and clear to auscultation bilaterally AUSCULTATION: clear to auscultation bilaterally Cardio: COMMON NORMALS: no JVD, regular rhythm, S1 normal heart sound present, S2 normal heart sound present and No murmurs present (Cardio) RHYTHM: regular rhythm HEART SOUNDS: S1 normal heart sound present and S2 normal heart sound present GI: COMMON NORMALS: Normal to inspection, nondistended, normoactive bowel sounds present, Soft to palpation and non-tender PALPATION: Yes Soft to palpation Extremity: COMMON NORMALS: no joint enlargement and no pedal edema OTHER: R bka Neuro: COMMON NORMALS: patient oriented x3 and moves all extremities SENSORIUM/ORIENTATION: Yes alert Skin: COMMON NORMALS: no rashes or lesions noted GENERAL SKIN EXAM: no rashes or lesions noted Data 01/19/23 05:08 01/14/23 08:43 Micro: Microbiology 01/10/23 17:16 Blood Culture - Final Blood A&P Assessment and plan (1) 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 OT note. Reviewed case management note. Pending placement. -Monitor surgical site Back pain: Continue frequent turning. Reports today she is feeling much better after she was turned every 2 hours overnight. Has not required capsaicin so far, discussed with her as available if needed. Reviewed blood counts, no leukocytosis. Remains afebrile. Reviewed blood culture, remaining negative on preliminary study. Urinary tract infection Cipro course until 01/18 Discussed with case management -arrangements underway for rehabilitation. Complicated UTI. MDRO E. coli. Enterococcus. Discussed with her again. Continue ciprofloxacin. -Complicated with suprapubic catheter She is afebrile. Type 2 diabetes mellitus: Reviewed blood sugar checks. Noted some fluctuation b ut overall better. Will not go up on Lantus at this time due to risk of hypoglycemia. Continue sliding scale. CC diet. Cont Lantus. Low-dose sliding scale History of DVT Continue Eliquis History of right below-knee amputation -PT OT History of chronic pain -Switch to morphine 2 mg IV push every 24 hours -Hold Celebrex -Continue baclofen -Continue cyclobenzaprine -Continue Lyrica -Continue Effexor -Continue dantrolene Anxiety and depression -Continue BuSpar, lorazepam, nortriptyline Hypertension continue metoprolol History of colostomy, continue MiraLAX History of suprapubic catheter Dehydration resolved Deconditioning, Continue work with therapy. Rehab station after discharge. arrangements underway for Attestations Medical Necessity Statement*: Continue admission for assessment management of generalized weakness, complicated UTI, rehabilitation planning and arrangements. 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
[2023-01-19 17:09] LABS: Glucose Point of Care 237 mg/dL (70-110)
[2023-01-19] MEDS: venlafaxine ER (24HR) 150 mg Capsule PO (18:38)
[2023-01-19] MEDS: nortriptyline 25 mg Capsule PO (18:38)
[2023-01-19] MEDS: quetiapine 25 mg Tablet PO (18:38)
[2023-01-19] MEDS: atorvastatin 40 mg Tablet 20 MG PO (18:38)
[2023-01-19] MEDS: diclofenac 1% Topical Gel 100 gm 1 APPLIC TOPICAL (18:42)
[2023-01-19] MEDS: insulin glargine 100 units/1 mL 5 UNIT SUBCUT (21:12)
[2023-01-19] MEDS: acetaminophen 325 mg Tablet 650 MG PO (21:12)
[2023-01-19] MEDS: oxyCODONE 5 mg IR Tab/Cap PO (21:14)
[2023-01-19 21:25] LABS: Glucose Point of Care 191 mg/dL (70-110)
[2023-01-20] VITALS (8 sets, daily range): BP systolic 126–165; BP diastolic 78–87; PULSE 59–69; RESP 16–18; TEMP 36.4–36.5; O2SAT 95–99
[2023-01-20 06:56] LABS: Glucose Point of Care 168 mg/dL (70-110)
[2023-01-20] MEDS: oxyCODONE 5 mg IR Tab/Cap PO ×2 (07:31→15:41)
[2023-01-20] MEDS: insulin lispro 100 unit/1 mL SUBCUT ×2 (08:48→11:41)
[2023-01-20] MEDS: multivitamin therapeutic Tablet 1 TAB PO (08:50)
[2023-01-20] MEDS: ferrous sulfate EC 325 mg Tablet PO (08:50)
[2023-01-20] MEDS: pregabalin 100 mg Capsule PO (08:50)
[2023-01-20] MEDS: docusate sodium 100 mg Capsule PO (08:50)
[2023-01-20] MEDS: aspirin 81 mg EC Tablet PO (08:50)
[2023-01-20] MEDS: BuSPIRONE 10 mg Tablet 15 MG PO (08:50)
[2023-01-20] MEDS: sennosides-docusate Tablet 1 TAB PO (08:50)
[2023-01-20] MEDS: montelukast sodium 10 mg Tablet PO (08:50)
[2023-01-20] MEDS: pantoprazole DR 40 mg Tablet PO (08:51)
[2023-01-20] MEDS: metoprolol tartrate 25 mg Tablet PO (08:51)
[2023-01-20] MEDS: apixaban 5 mg Tablet PO (08:51)
[2023-01-20] MEDS: polyethylene glycol 3350 Pkt 17 gm PO (08:51)
[2023-01-20] MEDS: famotidine 20 mg/2 mL INJ IVP (08:52)
[2023-01-20] MEDS: ciprofloxacin 500 mg Tablet PO (08:56)
[2023-01-20] MEDS: capsaicin 0.025% cream 60 gm 1 APPLIC TOPICAL (11:10)
[2023-01-20 11:21] LABS: Glucose Point of Care 252 mg/dL (70-110)
[2023-01-20] MEDS: pregabalin 50 mg Capsule PO (11:42)
[2023-01-20] MEDS: TRAMadol 50 mg Tablet PO (11:44)
[2023-01-20] MEDS: baclofen 10 mg Tablet PO (11:44)
--- NOTE | 2023-01-20 12:54 | PM.DCS ---
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: Status: Acute (2) History of DVT (deep vein thrombosis): Status: Acute (3) DM II (diabetes mellitus, type II), controlled: Status: Acute (4) HTN (hypertension): Status: Acute (5) CKD (chronic kidney disease): Status: Acute Qualifiers: Chronic kidney disease stage: stage 2 (mild) Qualified Code(s): N18.2 - Chronic kidney disease, stage 2 (mild) Reason for Visit Reason for Visit: fall post back surgery Brief History: History as per HPI: Edith García is a 57 year old female with a past medical history of left lower extremity DVT, 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, then she developed a spinal abscess which required debridement, and it required a colostomy, and requiring a suprapubic catheter, she then was transferred to a rehab center in [place], she is now been back in [place] for the last 24 hours, she tells me that she has been on the floor for the last 12 hours since getting home due to generalized weakness, she tells me that she was unable to change her colostomy bag, she tells me that her suprapubic catheter was changes before she left, she does have a prosthetic fitted for her right BKA, but it has not been wrapped, she feels weak, fatigued, tired has had poor appetite, no fevers, no chills, she has not taken her medications today, she reports chronic drainage from her suprapubic catheter which is normal for her, denies any other ulcers, no DTI's Hospital Course Hospital Course Patient was admitted to the hospital for further evaluation and management for generalized weakness in setting of complicated history. She was found to have urinary tract infection. She was started on broad-spectrum antibiotics along with IV hydration. During hospitalization her blood cultures remain negative though urine culture came back positive for Enterococcus and E. coli. Antibiotics were changed as per culture sensitivities. Safe discharge plan was discussed in detail with the patient given her complicated history, generalized weakness and requirement of multiple assistance for her ADLs. Patient agreed for transition to SNF for further rehabitation as possible. Her hospitalization was otherwise unremarkable. She has been discharged in hemodynamically stable condition to SNF to complete antibiotic course for complicated UTI in setting of suprapubic catheter. On oral ciprofloxacin for 3 more days Physical Exam Narrative: Reclined in bed, on video call with her sister. Const: COMMON NORMALS: no acute distress, patient oriented x3 and alert GENERAL APPEARANCE: cooperative, well kempt and well developed ORIENTATION/CONSCIOUSNESS: Yes awake HENMT: COMMON NORMALS: normocephalic, Normal external nose present and oropharynx normal HEAD & SCALP: normocephalic FACE & SINUS: normal facial exam NOSE: Normal external nose present Eye: COMMON NORMALS: Equal, round and reactive pupils present, EOMs intact bilaterally, conjunctivae normal and no scleral icterus CONJUNCTIVA: Yes conjunctivae normal PUPIL: Yes Equal, round and reactive pupils present Neck/C-Spine: COMMON NORMALS: full ROM, no lymphadenopathy, no meningeal signs, no JVD, Thyroid normal and No carotid bruits THYROID: Thyroid normal Lymph: LYMPHATIC: no lymphadenopathy noted Chest: COMMONS NORMALS: normal inspection of the chest Resp: COMMON NORMALS: normal respiratory effort, No retractions, No use of accessory muscles and clear to auscultation bilaterally AUSCULTATION: clear to auscultation bilaterally Cardio: COMMON NORMALS: no JVD, regular rate, regular rhythm, S1 normal heart sound present, S2 normal heart sound present, No murmurs present (Cardio) and Peripheral pulses 2+ throughout RATE: regular rate RHYTHM: regular rhythm HEART SOUNDS: S1 normal heart sound present and S2 normal heart sound present PERIPHERAL PULSES: Peripheral pulses 2+ throughout GI: COMMON NORMALS: Normal to inspection, nondistended, normoactive bowel sounds present, Soft to palpation and non-tender PALPATION: Yes Soft to palpation OTHER: Colostomy site is clean and dry, tissue/he : COMMON NORMALS: Yes no CVA tenderness BLADDER/KIDNEY EXAM: Yes no CVA tenderness Back/Pelvis: COMMON NORMALS: no CVA tenderness Extremity: COMMON NORMALS: normal to inspection, full ROM, capillary refill normal, no joint enlargement, no calf tenderness and no pedal edema OTHER: R bka Neuro: COMMON NORMALS: patient oriented x3, CN's II-XII intact bilaterally and moves all extremities SENSORIUM/ORIENTATION: Yes alert MENINGEAL SIGNS: Yes no meningeal signs OTHER: Right below-knee amputation Psych: COMMON NORMALS: mental status grossly normal, Normal thought process present, cooperative and speech normal APPEARANCE: Yes well kempt SPEECH: Yes normal speech THOUGHT PROCESS: Normal thought process present Skin: COMMON NORMALS: no rashes or lesions noted, turgor normal and no jaundice NARRATIVE SKIN EXAM: Suprapubic catheter in place Right below-knee amputation GENERAL SKIN EXAM: no rashes or lesions noted and turgor normal Discharge Data Studies Completed and Pending Completed Studies During Hospitalization Category Date Time Status CT abdomen pelvis w con* [id number] Stat Cat Scan 01/10/23 12:51 Completed Pending at discharge Category Date Time Status COVID [SARS Covid-2 Antigen] Routine Lab 01/20/23 12:50 Uncollected Radiology Impressions Abdomen/Pelvis CT 01/10/23 12:51 IMPRESSION: 1. No acute findings within the abdomen or pelvis. 2. Postsurgical changes sigmoid colon left-sided colostomy unremarkable in appearance. 3. Postsurgical changes with spinal instrumentation stabilizing chronic severe compression fracture L1 as discussed above. 4. Additional nonemergent findings as above. Microbiology 01/10/23 17:16 Blood Blood Culture - Final 01/10/23 17:08 Blood Blood Culture - Final NO GROWTH AFTER 5 DAYS 01/10/23 12:55 Urine,Clean Catch Urine Culture - Final Escherichia coli Enterococcus faecalis Laboratory Results WBC 6.87 10^3/uL (3.29-11.43) 01/19/23 05:08 RBC 3.93 10^6/uL (3.85-5.65) 01/19/23 05:08 Hgb 11.00 g/dL (11.27-16.99) L 01/19/23 05:08 Hct 38.2 % (36-47) 01/19/23 05:08 MCV 97.2 fl (85-98) 01/19/23 05:08 MCH 28.0 pg (27-33) 01/19/23 05:08 MCHC 28.8 g/dL (30-55) L 01/19/23 05:08 RDW 16.2 % (12.1-15.1) H 01/19/23 05:08 Plt Count 301 10^3/cmm (157-399) 01/19/23 05:08 MPV 9.2 fL (7.4-10.4) 01/19/23 05:08 Neut % (Auto) 58.2 % 01/19/23 05:08 Lymph % (Auto) 28.1 % 01/19/23 05:08 [place] % (Auto) 10.8 % 01/19/23 05:08 Eos % (Auto) 1.9 % 01/19/23 05:08 Baso % (Auto) 0.7 % 01/19/23 05:08 Neut # (Auto) 4.00 10^3/uL (1.8-7.7) 01/19/23 05:08 Lymph # (Auto) 1.9 10^3/uL (0.8-4.8) 01/19/23 05:08 Jennings # (Auto) 0.7 10^3/uL (0.2-0.9) 01/19/23 05:08 Eos # (Auto) 0.1 10^3/uL (0.0-0.8) 01/19/23 05:08 Baso # (Auto) 0.1 10^3/uL (0.0-0.1) 01/19/23 05:08 Nucleated RBC % (auto) 0 % 01/19/23 05:08 Nucleated RBCs # 0.0 /100WBC 01/19/23 05:08 ESR 26 mm/hr (0-15) H 01/10/23 11:35 Sodium 138 mmol/L (136-145) 01/14/23 08:43 Potassium 4.1 mmol/L (3.5-5.1) 01/14/23 08:43 Chloride 103 mmol/L (98-107) 01/14/23 08:43 Carbon Dioxide 25 mmol/L (22-29) 01/14/23 08:43 Anion Gap 14.1 (5-19) 01/14/23 08:43 BUN 12 mg/dL (6-20) 01/14/23 08:43 Creatinine 0.7 mg/dL (0.5-0.9) 01/14/23 08:43 GFR Calculation 85.6 mL/min (90-130) L 01/14/23 08:43 Glucose 188 mg/dL (65-115) H 01/14/23 08:43 POC Glucose 252 mg/dL (70-110) H 01/20/23 11:12 Estimat Average Glucose 128 01/10/23 19:03 Hemoglobin A1c 6.1 % (4.0-6.0) H 01/10/23 19:03 Calculated Osmolality 291 mOsm/kg (285-295) 01/14/23 08:43 Lactic Acid 1.8 mmol/L (0.5-2.2) 01/10/23 19:03 Calcium 8.7 mg/dL (8.5-10.5) 01/14/23 08:43 Phosphorus 3.2 mg/dL (2.5-4.5) 01/11/23 05:05 Magnesium 1.5 mg/dL (1.7-2.3) L 01/11/23 05:05 Total Bilirubin 0.3 mg/dL (0.15-1.2) 01/10/23 11:35 AST 21 U/L (0-32) 01/10/23 11:35 ALT 16 U/L (0-33) 01/10/23 11:35 Alkaline Phosphatase 134 U/L (35-105) H 01/10/23 11:35 Creatine Kinase 84 U/L (26-192) 01/10/23 11:35 C-Reactive Protein 50.5 mg/L (0.0-4.9) H 01/10/23 11:35 NT-Pro-B Natriuret Pep 372 pg/mL (0-125) H 01/10/23 19:03 Total Protein 7.7 g/dL (6.6-8.7) 01/10/23 11:35 Albumin 3.9 g/dL (3.5-5.2) 01/10/23 11:35 Globulin 3.8 g/dL (1.3-4.6) 01/10/23 11:35 Triglycerides 242 mg/dL (0-150) H 01/10/23 19:03 Cholesterol 143 mg/dL (0-200) 01/10/23 19:03 LDL Cholesterol, Calc 52 mg/dL (50-129) 01/10/23 19:03 HDL Cholesterol 43 mg/dL (60-100) L 01/10/23 19:03 LDL/HDL Ratio 1.21 RATIO (0.00-3.22) 01/10/23 19:03 Cholesterol/HDL Ratio 3.33 mg/dL (0.0-4.40) 01/10/23 19:03 Procalcitonin 0.08 ng/mL (0-0.5) 01/10/23 11:35 TSH 0.95 uIU/mL (0.27-4.20) 01/10/23 19:03 Urine Color Yellow (Yellow) 01/10/23 12:55 Urine Appearance Hazy (CLEAR) A 01/10/23 12:55 Urine pH 5 (5-7) 01/10/23 12:55 Ur Specific [place] 1.015 (1.005-1.030) 01/10/23 12:55 Urine Protein 3+ (Negative) H 01/10/23 12:55 Urine Glucose (UA) Norm (Normal) 01/10/23 12:55 Urine Ketones 1+ (Negative) H 01/10/23 12:55 Urine Blood 3+ (Negative) H 01/10/23 12:55 Urine Nitrate Positive (Negative) H 01/10/23 12:55 Urine Bilirubin Neg (Negative) 01/10/23 12:55 Urine Urobilinogen Norm mg/dL (Negative) 01/10/23 12:55 Ur Leukocyte Esterase 2+ (Negative) H 01/10/23 12:55 Urine RBC 5-10 /hpf (0-2) H 01/10/23 12:55 Urine WBC >100 /hpf (0-5) H 01/10/23 12:55 Ur Squamous Epith Cells 0-4 /hpf (0-5) H 01/10/23 12:55 Amorphous Sediment Not Reportable 01/10/23 12:55 Urine Bacteria 4+ /hpf (NONE) H 01/10/23 12:55 Vitals Last Vital Signs Temp 97.6 F 01/20/23 11:29 Pulse 61 01/20/23 11:29 Resp 17 01/20/23 11:29 BP 152/83 01/20/23 11:29 Pulse Ox 95 01/20/23 11:29 O2 Del Method Room Air 01/20/23 11:29 O2 Flow Rate 2 01/17/23 20:00 FiO2 21 01/19/23 20:55 Discharge Plan Discharge Patient Disposition: Xfer SNF Condition: Stable Prescriptions: New ciprofloxacin HCl 500 mg tablet 500 mg PO Q12H Qty: 6 0RF Lantus Solostar U-100 Insulin 100 unit/mL (3 mL) insulin pen 5 unit SUBCUT QPM Qty: 15 0RF Humalog KwikPen Insulin 100 unit/mL insulin pen See Protocol SUBCUT TID Qty: 15 0RF Protocol: Insulin Corrective High-Dose Regimen Condition: Fingerstick Blood Glucose Dose/Route: Insulin Units Condition: 141-180 mg/dl Dose/Route: 4 units/SQ Condition: 181-220 mg/dl Dose/Route: 6 units/SQ Condition: 221-260 mg/dl Dose/Route: 8 units/SQ Condition: 261-300 mg/dl Dose/Route: 10 units/SQ Condition: 301-350 mg/dl Dose/Route: 14 units/SQ Condition: 351-400 mg/dl Dose/Route: 16 units/SQ Condition: greater than 400 mg/dl Dose/Route: 18 units/SQ Continued venlafaxine 150 mg capsule,extended release 24hr 150 mg PO .QPM 30 Days Qty: 30 2RF montelukast 10 mg tablet 10 mg PO QDAY 30 Days Qty: 30 2RF (DME) FreeStyle [place] 14 Day [place] Misc See Rx Instructions .ROUTE .MEDSUPPLY Qty: 1 0RF Rx Instructions: As directed (DME) FreeStyle [place] 14 Day Sensor Kit See Rx Instructions .ROUTE .MEDSUPPLY Qty: 2 12RF Rx Instructions: As directed diclofenac sodium 1 % gel 2 g TOPICAL QID Qty: 100 0RF Rx Instructions: apply to single elbow, wrist or hand; for hand includes palm/fingers/back of hand omega-3 fatty acids 1,000 mg capsule 1,000 mg PO BID 30 Days Qty: 60 0RF (DME) Comfort EZ Pen [place] 33 gauge x 1/4 needle See Rx Instructions .ROUTE .MEDSUPPLY Qty: 100 2RF Rx Instructions: As directed acetaminophen 325 mg Tablet 650 mg PO QID PRN (Reason: Pain) multivitamin Tablet 1 tab PO DAILY quetiapine 25 mg Tablet 25 mg PO QPM Celebrex 200 mg Capsule 200 mg PO BID cyclobenzaprine 10 mg Tablet 10 mg PO QPM dantrolene 25 mg Capsule 25 mg PO TID Miralax 17 gram Powder In Packet 17 g PO BID atorvastatin 10 mg Tablet 10 mg PO QPM lidocaine 5 % Cream See Rx Instructions .ROUTE .COMPLEX Rx Instructions: 1 applic topically to feet and toes once daily Senokot-S 8.6-50 mg Tablet 1 tab-cap PO BID aspirin 81 mg Tablet,Delayed Release (Dr/Ec) 81 mg PO BID tramadol 50 mg Tablet 50 - 100 mg PO Q4H PRN (Reason: Pain) nortriptyline 25 mg Capsule 25 mg PO QPM lorazepam 0.5 mg Tablet See Rx Instructions .ROUTE .COMPLEX PRN (Reason: Anxiety) Rx Instructions: 0.5 mg orally twice daily and 0.5 mg every 6 hours as needed Vitamin C 500 mg Tablet 500 mg PO TID baclofen 10 mg Tablet 10 mg PO Q6H PRN (Reason: Muscle Spasm) pantoprazole 40 mg Tablet,Delayed Release (Dr/Ec) 40 mg PO DAILY ferrous sulfate 325 mg (65 mg iron) Tablet 325 mg PO DAILY docusate sodium 100 mg Capsule 100 mg PO DAILY buspirone 15 mg Tablet 15 mg PO TID oxycodone 5 mg Tablet 5 - 10 mg PO Q4H PRN (Reason: Pain) metoprolol tartrate 25 mg Tablet 25 mg PO DAILY pregabalin 25 mg Capsule 25 mg PO BID PRN (Reason: Pain) pregabalin 50 mg Capsule 50 mg PO .NOON pregabalin 100 mg Capsule 100 mg PO BID Eliquis 5 mg Tablet 5 mg PO BID Probiotic 3 billion cell Capsule 3,000 mmu cells PO BID Rx Instructions: administer with a meal Changed bumetanide 1 mg Tablet 1 mg PO DAILY PRN (Reason: Swelling) Qty: 10 0RF Discontinued metformin 1,000 mg tablet 1,000 mg PO BID 30 Days Qty: 60 2RF potassium chloride 10 mEq Tablet Extended Release 10 meq PO TID Discharge Orders: Discharge Order (Routine); Ordered 01/20/23 Ordered By: Andrew Harrington Referrals: [facility] [Outside] Discharge Diet: Cardiac and Diabetic Discharge Activity: Resume usual activity and Increase activity as tolerated Patient Instructions: Opioid Safety Discharge Attestations Time Spent in Discharge Care*: greater than 30 min Specific Discharge Activities: educating patient, educating and/or supporting family/caregiver, discussing with pcp/other providers, discussing with pillowcase cutter/social workers/dc planners, documenting/other paperwork and evaluating patient/reviewing data Status at Discharge: Cognitive status at discharge: cognitively intact, Behavioral status at discharge: cooperative, Functional status at discharge: independent ambulation, Overall status at discharge: patient is back to baseline Quality Metrics Clinical Quality Measures [ No reported AMI, CVA or VTE this stay] Coding Level of Care Code 12959 Total time (in minutes) for Discharge: 50 Diagnoses 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
[2023-01-20 14:05] LABS: SARS Covid-2 Antigen negative (Negative)
== END 2023-01-20 15:33 | disposition skilled nursing facility (03) | DRG 700 ==
LOC: ER 16:54 → MEDSURG 17:23
PROVIDERS: Internal Medicine; Admitting Provider Family Medicine; Emergency Provider Physician Assistant; Visit Provider Student in an Organized Health Care Education/Training Program
DX: T83.518A Infection and inflammatory reaction due to other urinary catheter, initial encounter (principal); Y73.8 Miscellaneous gastroenterology and urology devices associated with adverse incidents, not elsewhere classified; Z86.718 Personal history of other venous thrombosis and embolism; I12.9 Hypertensive chronic kidney disease with stage 1 through stage 4 chronic kidney disease, or unspecified chronic kidney disease; E11.22 Type 2 diabetes mellitus with diabetic chronic kidney disease; N18.2 Chronic kidney disease, stage 2 (mild); Z89.511 Acquired absence of right leg below knee; Z93.3 Colostomy status; Z96.0 Presence of urogenital implants; B95.2 Enterococcus as the cause of diseases classified elsewhere; B96.20 Unspecified Escherichia coli [E. coli] as the cause of diseases classified elsewhere; Z79.82 Long term (current) use of aspirin; Z79.891 Long term (current) use of opiate analgesic; Z79.01 Long term (current) use of anticoagulants; F41.1 Generalized anxiety disorder; K21.9 Gastro-esophageal reflux disease without esophagitis; E78.2 Mixed hyperlipidemia; F32.9 Major depressive disorder, single episode, unspecified; E11.51 Type 2 diabetes mellitus with diabetic peripheral angiopathy without gangrene; G47.33 Obstructive sleep apnea (adult) (pediatric); G89.29 Other chronic pain; Z75.1 Person awaiting admission to adequate facility elsewhere; E86.0 Dehydration
CPT/HCPCS: 36415; 36416; 74177; 80048; 80053; 80061; 81001; 82550; 82962; 83036; 83605; 83735; 83880; 84100; 84145; 84443; 85025; 85651; 86140; 87040; 87077; 87086; 87186; 87205; 87426; 93005; 94660; 94664; 96365; 96367; 96372; 97110; 97112; 97116; 97161; 97166; 97530; 97535; 99285; J0696; J1815; J2270; J2543; J3475; J3480; J3490; J7030; Q9967

== ENCOUNTER 2024-01-06 21:53 | Inpatient (IN) | payer MEDICARE, SELFPAY ==
[2024-01-06 21:57] VITALS: BP 191/93; PULSE 66; RESP 18; TEMP 36.7; O2SAT 95; BMI 29.5
--- NOTE | 2024-01-06 21:59 | XRR_ITS ---
PROCEDURE INFORMATION: Exam: XR Chest Exam date and time: 01/06/2024 10:03 PM Age: 58 years old Clinical indication: Other: AMS; Additional info: AMS weakness TECHNIQUE: Imaging protocol: Radiologic exam of the chest. Views: 1 view. COMPARISON: CT abdomen pelvis w con* [id number] 01/10/2023 3:54 PM FINDINGS: Lungs: Unremarkable. No consolidation. Pleural spaces: Unremarkable. No pleural effusion. No pneumothorax. Heart/Mediastinum: Unremarkable. No cardiomegaly. Bones/joints: Partially included posterior spinal fusion hardware. XR/XR chest 1V portable [id number] IMPRESSION: No acute findings.
--- NOTE | 2024-01-06 22:06 | ECG_ITS ---
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 Measurements Intervals [place] Rate: 61 P: 260 KS: 148 QRS: -64 QRSD: 79 T: -31 QT: 406 QTc: 411 Interpretive Statements ECTOPIC ATRIAL RHYTHM POSSIBLE RIGHT VENTRICULAR CONDUCTION DELAY [RSR (QR) IN V1/V2] MINIMAL VOLTAGE CRITERIA FOR LVH, CONSIDER NORMAL VARIANT [MEETS CRITERIA IN ONE OF: R(aVL), S(V1), R(V5), R(V5/V6)+S(V1)] INFERIOR MYOCARDIAL INFARCTION , PROBABLY OLD [40+ ms Q WAVE AND/OR ST/T ABNORMALITY IN II/aVF] ANTEROLATERAL MYOCARDIAL INFARCTION , OF INDETERMINATE AGE [40+ ms Q WAVE IN I/aVL/V3-V6] ST DEPRESSION, CONSIDER SUBENDOCARDIAL INJURY [0.1+ mV ST DEPRESSION] Compared to ECG 01/10/2023 10:59:44 Ectopic atrial rhythm now present ST (T wave) deviation now present Sinus rhythm no longer present Left anterior fascicular block no longer present Myocardial infarct finding still present Electronically Signed On 01-07-2024 8:22:29 CDT by Eloy Charles M.D. [email or web address]
--- NOTE | 2024-01-06 22:07 | ED_ITS ---
HPI - Altered Mental Status 2 General: Chief Complaint: Altered Mental Status Stated Complaint: AMS Time Seen by Provider: 01/06/24 21:55 History of Present Illness: Patient presents to the ER by EMS from the custodial with complaints of altered mental status and generalized weakness. He said this been going on all day long. When they tried to get her up. Go to the shower she just went to the ground and they had to assist getting her up. When they ask her questions she is kept repeating the same answer over and over. When I asked her questions she is alert to her name but that is it. Patient has no focal neurologic deficits. Related Data Home Medications Medication Instructions Recorded Confirmed acetaminophen 325 mg tablet 650 mg PO QID PRN Pain 01/10/23 01/10/23 apixaban 5 mg tablet (Eliquis) 5 mg PO BID 01/10/23 01/10/23 ascorbic acid (vitamin C) 500 mg 500 mg PO TID 01/10/23 01/10/23 tablet (Vitamin C) aspirin 81 mg tablet,delayed 81 mg PO BID 01/10/23 01/10/23 release atorvastatin 10 mg tablet 10 mg PO QPM 01/10/23 01/10/23 baclofen 10 mg tablet 10 mg PO Q6H PRN Muscle Spasm 01/10/23 01/10/23 buspirone 15 mg tablet 15 mg PO TID 01/10/23 01/10/23 celecoxib 200 mg capsule (Celebrex) 200 mg PO BID 01/10/23 01/10/23 cyclobenzaprine 10 mg tablet 10 mg PO QPM 01/10/23 01/10/23 dantrolene 25 mg capsule 25 mg PO TID 01/10/23 01/10/23 docusate sodium 100 mg capsule 100 mg PO DAILY 01/10/23 01/10/23 ferrous sulfate 325 mg (65 mg 325 mg PO DAILY 01/10/23 01/10/23 iron) tablet lactobacillus combination no.4 3 3,000 mmu cells PO BID 01/10/23 01/10/23 billion cell capsule (Probiotic) lidocaine 5 % topical cream See Rx Instructions .Route .COMPLEX 01/10/23 01/10/23 lorazepam 0.5 mg tablet See Rx Instructions .Route 01/10/23 01/10/23 .COMPLEX PRN Anxiety metoprolol tartrate 25 mg tablet 25 mg PO DAILY 01/10/23 01/10/23 multivitamin 1 tab PO DAILY 01/10/23 01/10/23 nortriptyline 25 mg capsule 25 mg PO QPM 01/10/23 01/10/23 oxycodone 5 mg tablet 5 - 10 mg PO Q4H PRN Pain 01/10/23 01/10/23 pantoprazole 40 mg tablet,delayed 40 mg PO DAILY 01/10/23 01/10/23 release polyethylene glycol 3350 17 gram 17 g PO BID 01/10/23 01/10/23 oral powder packet (Miralax) pregabalin 100 mg capsule 100 mg PO BID 01/10/23 01/10/23 pregabalin 25 mg capsule 25 mg PO BID PRN Pain 01/10/23 01/10/23 pregabalin 50 mg capsule 50 mg PO .NOON 01/10/23 01/10/23 quetiapine 25 mg tablet 25 mg PO QPM 01/10/23 01/10/23 sennosides 8.6 mg-docusate sodium 1 tab-cap PO BID 01/10/23 01/10/23 50 mg tablet (Senokot-S) tramadol 50 mg tablet 50 - 100 mg PO Q4H PRN Pain 01/10/23 01/10/23 Previous Rx's Medication Instructions Recorded diclofenac sodium 1 % topical gel 2 g topical QID #100 grams 10/13/20 omega-3 fatty acids 1,000 mg 1,000 mg PO BID 30 days #60 caps 10/26/21 capsule montelukast 10 mg tablet 10 mg PO QDAY 30 days #30 tabs 11/01/21 venlafaxine 150 mg 150 mg PO .QPM 30 days #30 caps 11/01/21 capsule,extended release 24 hr flash glucose scanning reader #1 ea 12/18/21 (FreeStyle Colette 14 Day [place]) flash glucose sensor (FreeStyle #2 ea 12/18/21 Colette 14 Day Sensor kit) pen needle, diabetic 33 gauge x #100 ea 12/27/2104/24 (Comfort EZ Pen [place]) bumetanide 1 mg tablet 1 mg PO DAILY PRN Swelling #10 tabs 01/20/23 ciprofloxacin HCl 500 mg tablet 500 mg PO Q12H #6 tabs 01/20/23 insulin glargine 100 unit/mL (3 5 unit (0.05 mL) SUBCUT QPM #15 mL 01/20/23 mL) subcutaneous pen (Lantus Solostar U-100 Insulin) insulin lispro 100 unit/mL See Protocol SUBCUT TID #15 mL 01/20/23 subcutaneous pen (Humalog KwikPen (U-100) Insulin) Allergies Allergy/AdvReac Type Severity Reaction Status Date / Time lisinopril Allergy Mild ADR-Swelling Verified 01/10/23 11:01 of the Eye codeine Allergy ALGY-Hives Verified 01/10/23 11:01 Sulfa (Sulfonamide Allergy Unknown Verified 01/06/24 22:09 Antibiotics) Review of Systems 2 General: Reports: 10 or more systems reviewed and unremarkable except in HPI and below PFSH ED 2 PFSH: Medical History 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 History of DVT (deep vein thrombosis) Peripheral edema PVD (peripheral vascular disease) Cellulitis of foot associated with diabetes mellitus Onychomycosis Major depression CHF (congestive heart failure) Allergic rhinitis Irregular heart beat Arthralgia Large platelets ABDON (generalized anxiety disorder) GERD (gastroesophageal reflux disease) Type 2 diabetes mellitus without complication, without long-term current use of insulin Bydureon switched to glipizide due to cost Hypertension, benign Hyperlipemia, mixed Neuropathy in diabetes Sleep apnea, obstructive Surgical History H/O laminectomy History of suprapubic catheter History of colostomy Hx of cholecystectomy H/O: hysterectomy Family History Father Heart disease Family/Other Cancer aunt-breast cancer Other Diabetes Social History Smoking and tobacco/nicotine status: never used tobacco/nicotine Alcohol intake: never Substance/Drug Use: never Current gender identity: Female Female Reproductive History: Spontaneous abortions: No Physical Exam 2 Const: COMMON NORMALS: no acute distress, average body habitus, healthy appearing, alert and well nourished; negative for patient oriented x3 (Alert to name) HENMT: COMMON NORMALS: normocephalic, atraumatic, hearing grossly normal bilaterally, external ears normal, Normal external nose present and moist oral mucous membranes HEAD & SCALP: normocephalic and atraumatic NOSE: Normal external nose present EXTERNAL EAR: Yes external ears normal Eye: COMMON NORMALS: Equal, round and reactive pupils present, EOMs intact bilaterally, conjunctivae normal and no scleral icterus CONJUNCTIVA: Yes conjunctivae normal PUPIL: Yes Equal, round and reactive pupils present Neck/C-Spine: COMMON NORMALS: full ROM, no lymphadenopathy, supple, no meningeal signs, no JVD and Thyroid normal THYROID: Thyroid normal Chest: COMMONS NORMALS: normal inspection of the chest and normal palpation of entire chest wall Resp: COMMON NORMALS: normal respiratory effort, No retractions, No use of accessory muscles and clear to auscultation bilaterally AUSCULTATION: clear to auscultation bilaterally Cardio: COMMON NORMALS: no JVD, regular rate, regular rhythm, S1 normal heart sound present, S2 normal heart sound present, No gallops present (Cardio), No clicks present (Cardio), No murmurs present (Cardio) and No rub (Cardio) R ATE: regular rate RHYTHM: regular rhythm HEART SOUNDS: S1 normal heart sound present and S2 normal heart sound present GI: COMMON NORMALS: Normal to inspection, nondistended, normoactive bowel sounds present, Soft to palpation, non-tender, No hepatosplenomegaly present and no masses PALPATION: Yes Soft to palpation and Yes No hepatosplenomegaly present Extremity: NARRATIVE EXTREMITY EXAM: Right below the knee amputation, left pitting edema below the knee. Neuro: COMMON NORMALS: CN's II-XII intact bilaterally and moves all extremities; negative for patient oriented x3 (Alert to name) SENSORIUM/ORIENTATION: Yes alert MENINGEAL SIGNS: Yes no meningeal signs Course 2 Vital Signs: Vital signs: Vital Signs Temperature 98.0 F 01/06/24 21:57 Pulse Rate 71 01/07/24 00:07 Respiratory Rate 16 01/07/24 00:07 Blood Pressure 125/69 01/07/24 00:07 Pulse Oximetry 92 01/07/24 00:07 Oxygen Delivery Me thod Room Air 01/07/24 00:07 MDM - Altered Mental Status Medical Decision Making Presents with altered mental status, lab work was obtained chest x-ray and urinalysis, mostly was benign except for urinalysis is positive for nitrates 2+ leukocyte Estrace and 11-20 white blood cells with 4+ bacteria. Patient will be admitted. Talk to Dr. Ruiz requested patient on MedSurg for further evaluation treatment. Patient CT scan of the abdomen pelvis done, we will start vancomycin and Zosyn, Differential Diagnosis Likely altered mental status Medical Records I reviewed the patient's medical records. Lab Data I reviewed the patient's lab results. 01/06/24 22:37 01/06/24 22:37 Radiology Impressions Chest X-Ray 01/06/24 21:59 IMPRESSION: No acute findings. Laboratory Results WBC 4.66 10^3/uL (3.29-11.43) 01/06/24 22:37 RBC 4.38 10^6/uL (3.85-5.65) 01/06/24 22:37 Hgb 13.00 g/dL (11.27-16.99) 01/06/24 22:37 Hct 40.4 % (36-47) 01/06/24 22:37 MCV 92.2 fl (85-98) 01/06/24 22:37 MCH 29.7 pg (27-33) 01/06/24 22:37 MCHC 32.2 g/dL (30-55) 01/06/24 22:37 RDW 14.6 % (12.1-15.1) 01/06/24 22:37 Plt Count 268 10^3/cmm (157-399) 01/06/24 22:37 MPV 9.4 fL (7.4-10.4) 01/06/24 22:37 Neut % (Auto) 52.3 % 01/06/24 22:37 Lymph % (Auto) 38.8 % 01/06/24 22:37 [place] % (Auto) 7.9 % 01/06/24 22:37 Eos % (Auto) 0.2 % 01/06/24 22:37 Baso % (Auto) 0.6 % 01/06/24 22:37 Neut # (Auto) 2.43 10^3/uL (1.8-7.7) 01/06/24 22:37 Lymph # (Auto) 1.8 10^3/uL (0.8-4.8) 01/06/24 22:37 [place] # (Auto) 0.4 10^3/uL (0.2-0.9) 01/06/24 22:37 Eos # (Auto) 0.0 10^3/uL (0.0-0.8) 01/06/24 22:37 Baso # (Auto) 0.0 10^3/uL (0.0-0.1) 01/06/24 22:37 Nucleated RBC % (auto) 0 % 01/06/24 22:37 Nucleated RBCs # 0.0 /100WBC 01/06/24 22:37 PT 13.40 SECONDS (12.1-14.9) 01/06/24 22:37 INR 0.99 (0.8-1.2) 01/06/24 22:37 Sodium 140 mmol/L (136-145) 01/06/24 22:37 Potassium 3.9 mmol/L (3.5-5.1) 01/06/24 22:37 Chloride 97 mmol/L (98-107) L 01/06/24 22:37 Carbon Dioxide 30 mmol/L (22-29) H 01/06/24 22:37 Anion Gap 16.9 (5-19) 01/06/24 22:37 BUN 13 mg/dL (8-23) 01/06/24 22:37 Creatinine 0.9 mg/dL (0.5-0.9) 01/06/24 22:37 GFR Calculation 63.9 mL/min (90-130) L 01/06/24 22:37 Glucose 185 mg/dL (65-115) H 01/06/24 22:37 Calculated Osmolality 295 mOsm/kg (285-295) 01/06/24 22:37 Calcium 9.0 mg/dL (8.5-10.5) 01/06/24 22:37 Magnesium 1.8 mg/dL (1.7-2.3) 01/06/24 22:37 Total Bilirubin 0.3 mg/dL (0.15-1.2) 01/06/24 22:37 AST 26 U/L (0-32) 01/06/24 22:37 ALT 22 U/L (0-33) 01/06/24 22:37 Alkaline Phosphatase 162 U/L (35-105) H 01/06/24 22:37 NT-Pro-B Natriuret Pep 194 pg/mL (0-125) H 01/06/24 22:37 Total Protein 7.7 g/dL (6.6-8.7) 01/06/24 22:37 Albumin 3.9 g/dL (3.5-5.2) 01/06/24 22:37 Globulin 3.8 g/dL (1.3-4.6) 01/06/24 22:37 Procalcitonin 0.08 ng/mL (0-0.5) 01/06/24 22:37 Urine Color Yellow (Yellow) 01/06/24 22:37 Urine Appearance Cloudy (CLEAR) A 01/06/24 22:37 Urine pH 6.5 (5-7) 01/06/24 22:37 Ur Specific [place] 1.010 (1.005-1.030) 01/06/24 22:37 Urine Protein 1+ (Negative) H 01/06/24 22:37 Urine Glucose (UA) Norm (Normal) 01/06/24 22:37 Urine Ketones Negative (Negative) 01/06/24 22:37 Urine Blood 2+ (Negative) H 01/06/24 22:37 Urine Nitrate Positive (Negative) A 01/06/24 22:37 Urine Bilirubin Neg (Negative) 01/06/24 22:37 Urine Urobilinogen Neg mg/dL (Negative) 01/06/24 22:37 Ur Leukocyte Esterase 2+ (Negative) H 01/06/24 22:37 Urine RBC 5-10 /hpf (0-2) H 01/06/24 22:37 Urine WBC 11-20 /hpf (0-5) H 01/06/24 22:37 Ur Squamous Epith Cells 5-10 /hpf (0-5) H 01/06/24 22:37 Amorphous Sediment Not Reportable 01/06/24 22:37 Urine Bacteria 4+ /hpf (NONE) H 01/06/24 22:37 Urine Mucus 2+ /hpf 01/06/24 22:37 All radiology interpretation(s) finalized by discharge Discharge Plan Discharge Patient Disposition: Admitted As Inpatient Clinical Impression: Altered mental status Qualifiers: Altered mental status type: disorientation Qualified Code(s): R41.0 - Disorientation, unspecified Urinary tract infection Qualifiers: Urinary tract infection type: acute cystitis Hematuria presence: with hematuria Qualified Code(s): N30.01 - Acute cystitis with hematuria Condition: Stable Coding Level of Care Code ED Wafer Machine Operator for Kenneth Carrero
[2024-01-06 22:08] VITALS: BP 191/93; PULSE 64; RESP 16; O2SAT 92
[2024-01-06] MEDS: hyDRALAzine 20 mg/mL INJ 1 mL 10 MG IVP (22:31)
[2024-01-06 22:34] VITALS: BP 149/90; PULSE 61; RESP 16; O2SAT 93
[2024-01-06 22:48] LABS: Basophils % 0.6 %; Eosinophils % 0.2 %; Hematocrit 40.4 % (36-47); Lymphocytes # 1.8 10^3/uL (0.8-4.8); Lymphocytes % 38.8 %; Mean Corpuscular HGB Conc 32.2 g/dL (30-55); Mean Corpuscular Hemoglobin 29.7 pg (27-33); Mean Corpuscular Volume 92.2 fl (85-98); Mean Platelet Volume 9.4 fL (7.4-10.4); Monocytes # 0.4 10^3/uL (0.2-0.9); Monocytes % 7.9 %; Neutrophils # 2.43 10^3/uL (1.8-7.7); Neutrophils % 52.3 %; Nucleated Red Blood Cells % 0 %; Platelet Count 268 10^3/cmm (157-399); Red Blood Count 4.38 10^6/uL (3.85-5.65); Red Cell Distribution Width 14.6 % (12.1-15.1); White Blood Count 4.66 10^3/uL (3.29-11.43)
[2024-01-06 23:01] LABS: INR 0.99 (0.8-1.2)
[2024-01-06 23:03] LABS: Add Urine Culture? Yes; Add Urine Microscopic? YES; Bacteria Urine 4+ /hpf; Bilirubin Urine Neg (Negative); Blood Urine 2+ (Negative); Glucose Urine UA Norm (Normal); Ketones Urine Negative (Negative); Leukocyte Esterase Urine 2+ (Negative); Mucus Urine 2+ /hpf; Nitrate Urine Positive (Negative); Protein Urine 1+ (Negative); Urine Appearance Cloudy (CLEAR); Urine Color Yellow (Yellow); Urobilinogen Urine Neg (Negative); pH Urine 6.5 (5-7)
[2024-01-06 23:17] LABS: NT Pro B Type Natriuretic Pept 194 pg/mL (0-125); Procalcitonin 0.08 ng/mL (0-0.5)
[2024-01-06 23:28] LABS: Alanine Aminotransferase 22 U/L (0-33); Albumin Level 3.9 g/dL (3.5-5.2); Alkaline Phosphatase 162 U/L (35-105); Blood Urea Nitrogen 13 mg/dL (8-23); Carbon Dioxide 30 mmol/L (22-29); Chloride 97 mmol/L (98-107); Creatinine Clr Calc Pharmacy 79.7606; Globulin 3.8 g/dL (1.3-4.6); Glomerular Filtration Rate 63.9 mL/min (90-130); Glucose 185 mg/dL (65-115); Magnesium 1.8 mg/dL (1.7-2.3); Osmolality Calculated 295 mOsm/kg (285-295); Sodium 140 mmol/L (136-145); Total Bilirubin 0.3 mg/dL (0.15-1.2); Total Protein 7.7 g/dL (6.6-8.7)
[2024-01-06 23:44] VITALS: BP 120/62; PULSE 65; RESP 16; O2SAT 95
[2024-01-06 23:44] LABS: Anion Gap 16.9 (5-19); Aspartate Amino Transferase 26 U/L (0-32); Potassium 3.9 mmol/L (3.5-5.1)
--- NOTE | 2024-01-06 23:53 | CTR_ITS ---
PROCEDURE INFORMATION: Exam: CT Abdomen And Pelvis Without Contrast Exam date and time: 01/07/2024 1:56 AM Age: 58 years old Clinical indication: Other: AMS; Additional info: AMS, UTI TECHNIQUE: Imaging protocol: Computed tomography of the abdomen and pelvis without contrast. Radiation optimization: All CT scans at this facility use at least one of these dose optimization techniques: automated exposure control; mA and/or kV adjustment per patient size (includes targeted exams where dose is matched to clinical indication); or iterative reconstruction. COMPARISON: CT abdomen pelvis w con* [id number] 01/10/2023 3:54 PM RADIATION DOSE METRICS: Total DLP (mGy-cm): 1377 FINDINGS: Limitations: Study is limited by patient's arm overlying the abdomen causing streak artifact. Tubes, catheters and devices: Decompressed urinary bladder by a suprapubic catheter. Liver: Unremarkable. No mass. Gallbladder and biliary ducts: Status post cholecystectomy. Pancreas: Unremarkable. No ductal dilation. Spleen: Unremarkable. No mass. Adrenal glands: Unremarkable. No mass. Kidneys and ureters: No visible renal stones or hydronephrosis. Stomach and bowel: Status post sigmoidectomy with left lower quadrant colostomy. No significant acute inflammatory bowel changes. No bowel obstruction. Appendix: No evidence of appendicitis. Intraperitoneal space: No free air. No significant fluid collection. Vasculature: No abdominal aortic aneurysm. Lymph nodes: No enlarged lymph nodes. Urinary bladder: Unremarkable as visualized. Reproductive: Status post hysterectomy. Bones/joints: Stable posterior fusion changes at the thoracolumbar spine with unchanged spinal alignment. Soft tissues: No bowel containing hernia. CT/CT abdomen pelvis con [id number] IMPRESSION: 1. Technically limited exam with no apparent acute intra-abdominal findings. 2. Status post sigmoidectomy with left lower quadrant colostomy. No bowel obstruction.
[2024-01-07] VITALS (14 sets, daily range): BP systolic 125–187; BP diastolic 69–101; PULSE 64–89; RESP 14–20; TEMP 36.4–36.9; O2SAT 92–96; BMI 39.0
[2024-01-07] MEDS: vancomycin 1,000 MG in sodium chloride 0.9% 250 ML 250 MG IV ×3 (00:08→14:38)
[2024-01-07] MEDS: piperacillin-tazobactam 3.375 GM in sodium chloride 0.9% (plus) 50 ML IV ×3 (00:10→18:14)
--- NOTE | 2024-01-07 00:34 | USR_ITS ---
PROCEDURE INFORMATION: Exam: US Duplex Left Lower Extremity Veins, Limited Exam date and time: 01/07/2024 12:41 AM Age: 58 years old Clinical indication: Other: Patient is unresponsive; Patient HX: Order states pain. patient does not respond to questions regarding location of pain. I note a right bka TECHNIQUE: Imaging protocol: Real-time duplex ultrasound of the left extremity with 2-D mccullough scale, color Doppler flow and spectral waveform analysis including responses to compression and other maneuvers (when performed) with image documentation. Limited exam focused on the left lower extremity veins. COMPARISON: CT abdomen pelvis w con* [id number] 01/10/2023 3:54 PM FINDINGS: Left deep veins: Unremarkable. The common femoral, femoral, proximal profunda femoral and popliteal veins are patent without thrombus. Normal Doppler waveforms. Normal compressibility and/or augmentation response. Superficial veins: Greater saphenous vein at the saphenofemoral junction is patent without thrombus. Soft tissues: Mild edema within the left calf. US/CV venous duplex [facility] [id number] IMPRESSION: No evidence of DVT.
--- NOTE | 2024-01-07 00:45 | P.HP_ITS ---
Providers/Chief Complaint 2 Chief Complaint: AMS History of Present Illness Edith García is a 58 year old female with a past medical history of left lower extremity DVT, right below-knee amputation, for right foot diabetic ulcer, type 2 diabetes mellitus, history of spinal abscess status postsurgical debridement, requiring colostomy, history of suprapubic catheter, who presents to [facility] due to altered mental status, generalized fatigue and malaise. Currently patient alert to person, not to place, not to time she can follow some commands her biggest complaint is left lower extremity pain. She tells me that her left leg is hurting her. She denies any other complaints, denies any abdominal pain, no facial droop, no slurring of words, no focal weakness she moves bilateral upper and lower extremities, she has had a right BKA. I cannot get a lot of history from her except that her left leg is hurting her. Review of Systems 2 Const: Reports: fatigue and malaise Card: Denies: chest pain GI: Denies: abdominal pain Medications/Allergies Home Medications Medication Instructions Recorded Confirmed Last Taken Type diclofenac sodium 1 % topical gel 2 g topical QID #100 grams 10/13/20 01/10/23 Unknown Rx omega-3 fatty acids 1,000 mg 1,000 mg PO BID 30 days #60 caps 10/26/21 01/10/23 Unknown Rx capsule montelukast 10 mg tablet 10 mg PO QDAY 30 days #30 tabs 11/01/21 01/10/23 Unknown Rx venlafaxine 150 mg 150 mg PO .QPM 30 days #30 caps 11/01/21 01/10/23 Unknown Rx capsule,extended release 24 hr flash glucose scanning reader #1 ea 12/18/21 01/10/23 Unknown Rx (FreeStyle Colette 14 Day [place]) flash glucose sensor (FreeStyle #2 ea 12/18/21 01/10/23 Unknown Rx Colette 14 Day Sensor kit) pen needle, diabetic 33 gauge x #100 ea 12/27/21 01/10/23 Unknown Rx 1/4 (Comfort EZ Pen [place]) acetaminophen 325 mg tablet 650 mg PO QID PRN Pain 01/10/23 01/10/23 Unknown History apixaban 5 mg tablet (Eliquis) 5 mg PO BID 01/10/23 01/10/23 Unknown History ascorbic acid (vitamin C) 500 mg 500 mg PO TID 01/10/23 01/10/23 Unknown History tablet (Vitamin C) aspirin 81 mg tablet,delayed 81 mg PO BID 01/10/23 01/10/23 Unknown History release atorvastatin 10 mg tablet 10 mg PO QPM 01/10/23 01/10/23 Unknown History baclofen 10 mg tablet 10 mg PO Q6H PRN Muscle Spasm 01/10/23 01/10/23 Unknown History buspirone 15 mg tablet 15 mg PO TID 01/10/23 01/10/23 Unknown History celecoxib 200 mg capsule (Celebrex) 200 mg PO BID 01/10/23 01/10/23 Unknown History cyclobenzaprine 10 mg tablet 10 mg PO QPM 01/10/23 01/10/23 Unknown History dantrolene 25 mg capsule 25 mg PO TID 01/10/23 01/10/23 Unknown History docusate sodium 100 mg capsule 100 mg PO DAILY 01/10/23 01/10/23 Unknown History ferrous sulfate 325 mg (65 mg 325 mg PO DAILY 01/10/23 01/10/23 Unknown History iron) tablet lactobacillus combination no.4 3 3,000 mmu cells PO BID 01/10/23 01/10/23 Unknown History billion cell capsule (Probiotic) lidocaine 5 % topical cream See Rx Instructions .Route .COMPLEX 01/10/23 01/10/23 Unknown History lorazepam 0.5 mg tablet See Rx Instructions .Route 01/10/23 01/10/23 Unknown History .COMPLEX PRN Anxiety metoprolol tartrate 25 mg tablet 25 mg PO DAILY 01/10/23 01/10/23 Unknown History multivitamin 1 tab PO DAILY 01/10/23 01/10/23 Unknown History nortriptyline 25 mg capsule 25 mg PO QPM 01/10/23 01/10/23 Unknown History oxycodone 5 mg tablet 5 - 10 mg PO Q4H PRN Pain 01/10/23 01/10/23 Unknown History pantoprazole 40 mg tablet,delayed 40 mg PO DAILY 01/10/23 01/10/23 Unknown History release polyethylene glycol 3350 17 gram 17 g PO BID 01/10/23 01/10/23 Unknown History oral powder packet (Miralax) pregabalin 100 mg capsule 100 mg PO BID 01/10/23 01/10/23 Unknown History pregabalin 25 mg capsule 25 mg PO BID PRN Pain 01/10/23 01/10/23 Unknown History pregabalin 50 mg capsule 50 mg PO .NOON 01/10/23 01/10/23 Unknown History quetiapine 25 mg tablet 25 mg PO QPM 01/10/23 01/10/23 Unknown History sennosides 8.6 mg-docusate sodium 1 tab-cap PO BID 01/10/23 01/10/23 Unknown History 50 mg tablet (Senokot-S) tramadol 50 mg tablet 50 - 100 mg PO Q4H PRN Pain 01/10/23 01/10/23 Unknown History bumetanide 1 mg tablet 1 mg PO DAILY PRN Swelling #10 tabs 01/20/23 01/10/23 Unknown Rx ciprofloxacin HCl 500 mg tablet 500 mg PO Q12H #6 tabs 01/20/23 Unknown Rx insulin glargine 100 unit/mL (3 5 unit (0.05 mL) SUBCUT QPM #15 mL 01/20/23 Unknown Rx mL) subcutaneous pen (Lantus Solostar U-100 Insulin) insulin lispro 100 unit/mL See Protocol SUBCUT TID #15 mL 01/20/23 Unknown Rx subcutaneous pen (Humalog KwikPen (U-100) Insulin) Allergies Allergy/AdvReac Type Severity Reaction Status Date / Time lisinopril Allergy Mild ADR-Swelling Verified 01/10/23 11:01 of the Eye codeine Allergy ALGY-Hives Verified 01/10/23 11:01 Sulfa (Sulfonamide Allergy Unknown Verified 01/06/24 22:09 Antibiotics) PFSH Acute 2 PFSH: Medical History 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 History of DVT (deep vein thrombosis) Peripheral edema PVD (peripheral vascular disease) Cellulitis of foot associated with diabetes mellitus Onychomycosis Major depression CHF (congestive heart failure) Allergic rhinitis Irregular heart beat Arthralgia Large platelets ABDON (generalized anxiety disorder) GERD (gastroesophageal reflux disease) Type 2 diabetes mellitus without complication, without long-term current use of insulin Bydureon switched to glipizide due to cost Hypertension, benign Hyperlipemia, mixed Neuropathy in diabetes Sleep apnea, obstructive Surgical History H/O laminectomy History of suprapubic catheter History of colostomy Hx of cholecystectomy H/O: hysterectomy Family History Father Heart disease Family/Other Cancer aunt-breast cancer Other Diabetes Social History Smoking and tobacco/nicotine status: never used tobacco/nicotine Alcohol intake: never Substance/Drug Use: never Current gender identity: Female Female Reproductive History: Spontaneous abortions: No Vitals/I&O/Wt Last Vital Signs Temp 98.0 F 01/06/24 21:57 Pulse 71 01/07/24 00:07 Resp 16 01/07/24 00:07 BP 125/69 01/07/24 00:07 Pulse Ox 92 01/07/24 00:07 O2 Del Method Room Air 01/07/24 00:07 Weight last 48 hrs Weight 90.718 kg Physical Exam 2 Const: COMMON NORMALS: no acute distress ORIENTATION/CONSCIOUSNESS: Yes awake, Yes oriented to person and Yes confused; not oriented to place and not oriented to time HENMT: COMMON NORMALS: normocephalic HEAD & SCALP: normocephalic Eye: COMMON NORMALS: Equal, round and reactive pupils present Resp: COMMON NORMALS: normal respiratory effort, No retractions, No use of accessory muscles and clear to auscultation bilaterally AUSCULTATION: clear to auscultation bilaterally Cardio: COMMON NORMALS: regular rate, regular rhythm, S1 normal heart sound present and S2 normal heart sound present RATE: regular rate RHYTHM: r egular rhythm HEART SOUNDS: S1 normal heart sound present and S2 normal heart sound present GI: COMMON NORMALS: Normal to inspection, nondistended, normoactive bowel sounds present, Soft to palpation and non-tender Extremity: COMMON NORMALS: no calf tenderness and no pedal edema NARRATIVE EXTREMITY EXAM: Right below-knee amputation, left leg swelling, no significant erythema, no tenderness, no calf swelling or tenderness Left leg, DP PT pulses palpable, good capillary refill, no mottling Neuro: OTHER: Neurologic testing is difficult given her encephalopathy Data 01/06/24 22:37 01/06/24 22:37 A&P Assessment and plan (1) Acute encephalopathy: (2) UTI (urinary tract infection): (3) Left leg pain: (4) Chronic suprapubic catheter: (5) History of DVT (deep vein thrombosis): Plan Acute encephalopathy -Neurochecks -NIH stroke scale -Aspiration precautions -CT head -Keep n.p.o. Urinary tract infection -History of complicated UTIs ? Continue vancomycin - continue Zosyn ? Follow blood cultures -Follow urine culture -CT scan abdomen pelvis Left leg pain, venous ultrasound History of DVT continue Eliquis Type 2 diabetes mellitus, low-dose sliding scale We will have to clarify dosing of her medications from the longterm pharmacy in the morning Attestations 2 Medical Necessity Statement*: Patient requires hospitalization, inpatient, greater than 2 midnights, for acute encephalopathy, UTI Diagnoses Acute encephalopathy G93.40 UTI (urinary tract infection) N39.0 Left leg pain M79.605 Chronic suprapubic catheter Z93.59 History of DVT (deep vein thrombosis) Z86.718
--- NOTE | 2024-01-07 00:45 | CTR_ITS ---
PROCEDURE INFORMATION: Exam: CT Head Without Contrast Exam date and time: 01/07/2024 1:54 AM Age: 58 years old Clinical indication: Altered mental status/memory loss; Additional info: AMS TECHNIQUE: Imaging protocol: Computed tomography of the head without contrast. Radiation optimization: All CT scans at this facility use at least one of these dose optimization techniques: automated exposure control; mA and/or kV adjustment per patient size (includes targeted exams where dose is matched to clinical indication); or iterative reconstruction. COMPARISON: No relevant prior studies available. RADIATION DOSE METRICS: Total DLP (mGy-cm): 1180 FINDINGS: Brain: Normal. No hemorrhage. Unremarkable white matter. No mass effect. Cerebral ventricles: No ventriculomegaly. Paranasal sinuses: Visualized sinuses are unremarkable. No fluid levels. Mastoid air cells: Visualized mastoid air cells are well aerated. Bones: Hyperostosis frontalis internus. Soft tissues: Unremarkable. CT/CT head wo con* [id number] IMPRESSION: No acute intracranial abnormality.
[2024-01-07 02:02] LABS: Lactic Sepsis W/Reflex 1.8 mmol/L (0.5-2.2)
[2024-01-07] MEDS: sodium chloride 0.9% 1,000 ML 75 ML IV (03:09)
[2024-01-07] MEDS: amlodipine 10 mg Tablet PO ×2 (04:00→09:18)
[2024-01-07] MEDS: pantoprazole 40 mg SDV IVP (05:11)
[2024-01-07 06:48] LABS: Glucose Point of Care 217 mg/dL (70-110)
[2024-01-07] MEDS: insulin lispro 100 unit/1 mL SUBCUT ×3 (07:40→18:17)
--- NOTE | 2024-01-07 08:46 | PHA.VACGOAL ---
Vancomycin Goal - Goal Vancomycin Goal:: 15-20 mg/L Vancomycin Indication:: Other - Therapy Current therapy:: Pip/Tazo Day of therpy:: Day [1]of [] . Actual body weight (kg): 121.018 kg - Data Labs: WBC 4.66 10^3/uL (3.29-11.43) 01/06/24 22:37 RBC 4.38 10^6/uL (3.85-5.65) 01/06/24 22:37 Hgb 13.00 g/dL (11.27-16.99) 01/06/24 22:37 Hct 40.4 % (36-47) 01/06/24 22:37 MCV 92.2 fl (85-98) 01/06/24 22:37 MCH 29.7 pg (27-33) 01/06/24 22:37 MCHC 32.2 g/dL (30-55) 01/06/24 22:37 RDW 14.6 % (12.1-15.1) 01/06/24 22:37 Sodium 140 mmol/L (136-145) 01/06/24 22:37 Potassium 3.9 mmol/L (3.5-5.1) 01/06/24 22:37 Chloride 97 mmol/L (98-107) L 01/06/24 22:37 Carbon Dioxide 30 mmol/L (22-29) H 01/06/24 22:37 Anion Gap 16.9 (5-19) 01/06/24 22:37 BUN 13 mg/dL (8-23) 01/06/24 22:37 Creatinine 0.9 mg/dL (0.5-0.9) 01/06/24 22:37 GFR Calculation 63.9 mL/min (90-130) L 01/06/24 22:37 Treatment plan:: new consult Regimen:: Patient is 58 year old female presenting to ED with leg pain. Past medical history right below-knee amputation, type 2 diabetes mellitus, history of spinal abscess status postsurgical debridement, cellulitis and UTI's. Body weight of 121 kg and Scr of 0.9 mg/dL. Received loading dose of 2000 mg in ED. Will start 1000 mg q12H based on population based kinetics. Pharmacy will monitor daily.
[2024-01-07] MEDS: metoprolol tartrate 25 mg Tablet PO ×2 (09:17→18:19)
[2024-01-07] MEDS: apixaban 5 mg Tablet PO ×2 (09:18→18:19)
[2024-01-07] MEDS: aspirin 81 mg EC Tablet PO ×2 (09:18→18:18)
[2024-01-07] MEDS: BuSPIRONE 10 mg Tablet 15 MG PO ×3 (09:18→20:25)
[2024-01-07] MEDS: morphine 4 mg/mL SDV 1 mL 1 MG IVP ×2 (09:34→16:48)
--- NOTE | 2024-01-07 10:35 | PC.SLP ---
Attempted to assess the patient this morning, however, the patient was upset and tearful and did not want to participate at this time. She indicated that she was upset that she was in the hospital did not want to be in the hospital. DISK GRINDER will try again later today.
[2024-01-07] MEDS: pregabalin 50 mg Capsule PO (12:43)
[2024-01-07 12:48] LABS: Glucose Point of Care 288 mg/dL (70-110)
[2024-01-07 14:49] LABS: C.Diff PCR (Lab) NEGATIVE (Negative)
[2024-01-07 14:50] LABS: Basophils # 0.1 10^3/uL (0.0-0.1); Basophils % 0.7 %; Eosinophils % 0.1 %; Hematocrit 42.4 % (36-47); Lymphocytes # 1.4 10^3/uL (0.8-4.8); Lymphocytes % 16.7 %; Mean Corpuscular HGB Conc 33.3 g/dL (30-55); Mean Corpuscular Hemoglobin 30.1 pg (27-33); Mean Corpuscular Volume 90.4 fl (85-98); Mean Platelet Volume 9.1 fL (7.4-10.4); Monocytes # 0.4 10^3/uL (0.2-0.9); Neutrophils # 6.36 10^3/uL (1.8-7.7); Neutrophils % 75.6 %; Nucleated Red Blood Cells % 0 %; Platelet Count 313 10^3/cmm (157-399); Red Blood Count 4.69 10^6/uL (3.85-5.65); Red Cell Distribution Width 14.6 % (12.1-15.1); White Blood Count 8.42 10^3/uL (3.29-11.43)
[2024-01-07 15:06] LABS: Estmated Average Glucose 180; Hemoglobin A1C 7.9 % (4.0-6.0)
--- NOTE | 2024-01-07 15:15 | PM.MISC ---
Miscellaneous Note Purpose of Documentation: Cross coverage Note: Admitted overnight. H&P and labs appreciated. Admitted for altered mental status in setting of UTI. Follow-up urine culture and blood culture. Check C. difficile. Continue with IV vancomycin and Zosyn. Restart home medications including Ativan as needed, metoprolol 25 mg twice daily, oxycodone IR 5 mg every 4 hours as needed, home dose of Lyrica. Cannot rule out altered mental status in setting of polypharmacy. Hold off on scheduled Ativan. Repeat CBC and CMP today. Left lower limb Doppler negative for DVT.
[2024-01-07 15:20] LABS: Procalcitonin 0.07 ng/mL (0-0.5); Thyroid Stimulating Hormone 0.83 uIU/mL (0.27-4.20); Vitamin B12 1175 pg/mL (232-1245)
[2024-01-07 15:22] LABS: Slide Review Slide Review Perform
[2024-01-07 15:46] LABS: Alanine Aminotransferase 23 U/L (0-33); Albumin Level 3.9 g/dL (3.5-5.2); Alkaline Phosphatase 171 U/L (35-105); Anion Gap 19.9 (5-19); Aspartate Amino Transferase 21 U/L (0-32); Blood Urea Nitrogen 10 mg/dL (8-23); Carbon Dioxide 24 mmol/L (22-29); Chloride 102 mmol/L (98-107); Creatinine Clr Calc Pharmacy 118.9018; Globulin 4.1 g/dL (1.3-4.6); Glomerular Filtration Rate 85.4 mL/min (90-130); Glucose 234 mg/dL (65-115); Iron 51 ug/dL (37-145); Osmolality Calculated 301 mOsm/kg (285-295); Percent Saturation 21.2 % (20-50); Potassium 3.9 mmol/L (3.5-5.1); Sodium 142 mmol/L (136-145); Total Bilirubin 0.4 mg/dL (0.15-1.2); Total Iron Binding Capacity 240 mcg/dl; Unsaturated Iron Binding 189 ug/dL (112-347)
[2024-01-07] MEDS: LORazepam 0.5 mg Tablet PO (16:08)
[2024-01-07] MEDS: TRAMadol 50 mg Tablet PO (16:52)
--- NOTE | 2024-01-07 17:30 | PC.SLP ---
EMBROIDERY MACHINE OPERATOR attempted to assess patient, however, patient is still emotionally labile and is refusing to eat at this time.
[2024-01-07 17:47] LABS: Glucose Point of Care 222 mg/dL (70-110)
[2024-01-07] MEDS: atorvastatin 40 mg Tablet 10 MG PO (18:18)
[2024-01-07] MEDS: pregabalin 100 mg Capsule PO (18:18)
[2024-01-07] MEDS: nortriptyline 25 mg Capsule PO (18:19)
[2024-01-07] MEDS: quetiapine 25 mg Tablet PO (18:19)
[2024-01-07] MEDS: venlafaxine ER (24HR) 150 mg Capsule PO (18:19)
[2024-01-07] MEDS: oxyCODONE 5 mg IR Tab/Cap PO (20:26)
[2024-01-07 20:59] LABS: Glucose Point of Care 228 mg/dL (70-110)
[2024-01-08] VITALS (12 sets, daily range): BP systolic 151–192; BP diastolic 76–95; PULSE 71–88; RESP 16–20; TEMP 36.3–37.1; O2SAT 94–98
[2024-01-08] MEDS: TRAMadol 50 mg Tablet PO ×3 (02:02→22:29)
[2024-01-08] MEDS: oxyCODONE 5 mg IR Tab/Cap PO ×3 (03:06→21:11)
[2024-01-08] MEDS: vancomycin 1,000 MG in sodium chloride 0.9% 250 ML 250 MG IV ×2 (03:06→15:16)
[2024-01-08 03:30] LABS: Basophils % 0.5 %; Eosinophils % 0.3 %; Hematocrit 37.6 % (36-47); Lymphocytes # 1.7 10^3/uL (0.8-4.8); Lymphocytes % 26.2 %; Mean Corpuscular HGB Conc 32.4 g/dL (30-55); Mean Corpuscular Hemoglobin 29.7 pg (27-33); Mean Corpuscular Volume 91.5 fl (85-98); Mean Platelet Volume 9.1 fL (7.4-10.4); Monocytes # 0.6 10^3/uL (0.2-0.9); Monocytes % 9.1 %; Neutrophils # 4.18 10^3/uL (1.8-7.7); Neutrophils % 63.6 %; Nucleated Red Blood Cells % 0 %; Platelet Count 310 10^3/cmm (157-399); Red Blood Count 4.11 10^6/uL (3.85-5.65); Red Cell Distribution Width 14.6 % (12.1-15.1); White Blood Count 6.57 10^3/uL (3.29-11.43)
[2024-01-08 03:47] LABS: Alanine Aminotransferase 20 U/L (0-33); Albumin Level 3.6 g/dL (3.5-5.2); Alkaline Phosphatase 148 U/L (35-105); Anion Gap 15.2 (5-19); Aspartate Amino Transferase 19 U/L (0-32); Blood Urea Nitrogen 8 mg/dL (8-23); Calcium 8.7 mg/dL (8.5-10.5); Carbon Dioxide 28 mmol/L (22-29); Chloride 106 mmol/L (98-107); Creatinine Clr Calc Pharmacy 104.0391; Globulin 3.6 g/dL (1.3-4.6); Glomerular Filtration Rate 73.2 mL/min (90-130); Glucose 165 mg/dL (65-115); Magnesium 1.6 mg/dL (1.7-2.3); Osmolality Calculated 302 mOsm/kg (285-295); Potassium 4.2 mmol/L (3.5-5.1); Sodium 145 mmol/L (136-145); Total Bilirubin 0.5 mg/dL (0.15-1.2); Total Protein 7.2 g/dL (6.6-8.7)
[2024-01-08 03:52] LABS: Chol HDL Ratio 4.19 mg/dL (0.0-4.40); Cholesterol 151 mg/dL (0-200); HDL Cholesterol 36 mg/dL (60-100); LDL Cholesterol Calculated 66 mg/dL (50-129); LDL HDL Ratio 1.83 RATIO (0.00-3.22); Triglycerides 247 mg/dL (0-150)
[2024-01-08 04:06] LABS: Folate Level 5.3 ng/mL (4.8-37.3)
[2024-01-08] MEDS: piperacillin-tazobactam 3.375 GM in sodium chloride 0.9% (plus) 50 ML IV ×3 (04:13→17:35)
[2024-01-08] MEDS: pantoprazole 40 mg SDV IVP (05:21)
[2024-01-08 07:23] LABS: Glucose Point of Care 185 mg/dL (70-110)
[2024-01-08] MEDS: amlodipine 10 mg Tablet PO (09:37)
[2024-01-08] MEDS: apixaban 5 mg Tablet PO ×2 (09:37→17:26)
[2024-01-08] MEDS: pregabalin 100 mg Capsule PO (09:37)
[2024-01-08] MEDS: metoprolol tartrate 25 mg Tablet PO ×2 (09:37→17:26)
[2024-01-08] MEDS: insulin lispro 100 unit/1 mL SUBCUT ×3 (09:38→17:35)
[2024-01-08] MEDS: BuSPIRONE 10 mg Tablet 15 MG PO ×3 (09:38→21:11)
[2024-01-08] MEDS: aspirin 81 mg EC Tablet PO ×2 (09:38→17:27)
[2024-01-08] MEDS: pregabalin 50 mg Capsule PO ×3 (11:50→21:12)
[2024-01-08] MEDS: LORazepam 0.5 mg Tablet PO ×2 (11:50→22:34)
[2024-01-08 12:23] LABS: Glucose Point of Care 217 mg/dL (70-110)
--- NOTE | 2024-01-08 13:32 | P.PN_ITS ---
Subjective 2 Subjective: No acute vents overnight. Patient has remained hemodynamically stable and afebrile. Having episodes of yesterday but more p.o. today. The morning examination patient laying comfortably in bed, awake and alert. Denies any nausea, pain, today. Seems to be back to her baseline. Vitals/I&O/Wt Last Vital Signs Temp 98.3 F 01/08/24 11:54 Pulse 75 01/08/24 11:54 Resp 16 01/08/24 11:54 BP 176/83 01/08/24 11:54 Pulse Ox 96 01/08/24 11:54 O2 Del Method Room Air 01/08/24 11:54 FiO2 21 01/08/24 04:15 01/07/24 01/08/24 01/08/24 22:59 06:59 14:59 Intake Total 1490 / 1540 300 / 1840 50 / 50 Output Total 1400 / 2800 Balance 1490 / 140 -1100 / -960 50 / 50 Weight last 48 hrs Weight 119.862 kg Weight 121.018 kg Weight 120.021 kg Weight 90.718 kg Physical Exam 2 Const: COMMON NORMALS: no acute distress ORIENTATION/CONSCIOUSNESS: Yes awake, Yes oriented to person, Yes oriented to place and Yes oriented to time HENMT: COMMON NORMALS: normocephalic HEAD & SCALP: normocephalic Eye: COMMON NORMALS: Equal, round and reactive pupils present PUPIL: Yes Equal, round and reactive pupils present Resp: COMMON NORMALS: normal respiratory effort, No retractions, No use of accessory muscles and clear to auscultation bilaterally AUSCULTATION: clear to auscultation bilaterally Cardio: COMMON NORMALS: regular rate, regular rhythm, S1 normal heart sound present and S2 normal heart sound present RATE: regular rate RHYTHM: r egular rhythm HEART SOUNDS: S1 normal heart sound present and S2 normal heart sound present GI: COMMON NORMALS: Normal to inspection, nondistended, normoactive bowel sounds present, Soft to palpation and non-tender PALPATION: Yes Soft to palpation Extremity: COMMON NORMALS: no calf tenderness and no pedal edema NARRATIVE EXTREMITY EXAM: Right below-knee amputation, left leg swelling, no significant erythema, no tenderness, no calf swelling or tenderness Left leg, DP PT pulses palpable, good capillary refill, no mottling Neuro: SENSORIUM/ORIENTATION: Yes oriented to person, Yes oriented to place and Yes oriented to time OTHER: Neurologic testing is difficult given her encephalopathy Data 01/08/24 02:55 01/08/24 02:55 Micro: Microbiology 01/07/24 01:40 Blood Culture - Preliminary Blood NEGATIVE TO DATE 01/07/24 01:36 Blood Culture - Preliminary Blood NEGATIVE TO DATE A&P Assessment and plan (1) Acute encephalopathy: (2) UTI (urinary tract infection): (3) Left leg pain: (4) Chronic suprapubic catheter: (5) History of DVT (deep vein thrombosis): (6) DM II (diabetes mellitus, type II), controlled: (7) Hypertension, benign: Plan Acute encephalopathy: Most likely in setting of polypharmacy along with UTI. Improving. Patient takes multiple medications including BuSpar 15 mg 3 times daily, dantrolene 25 mg 3 times daily, Ativan 0.5 twice daily along with every 6 hours as needed, oxycodone 5 to 10 mg every 4 hours as needed, pregabalin 100 mg twice daily, 50 mg q. noon, 25 mg twice daily as needed, Effexor nightly. For now we will continue all other medications except change scheduled Ativan to 0.25 twice daily, change as needed to Q8 as needed, oxycodone 5 mg every 4 hours as needed, pregabalin to 50 mg 3 times daily. UTI: Complicated UTI with history of suprapubic catheter. Follow-up blood culture, urine culture. For now continue with IV antibiotics with Zosyn and vancomycin. De-escalate as per culture results. History of UTI with E. coli and Enterococcus faecalis in the past. Should be covered with above antibiotics. Hypertension: Goal blood pressure less than 140/90 mmHg. Blood pressure is elevated. Could be in setting of withdrawal from Ativan. For now continue with amlodipine 10 mg oral daily, metoprolol 25 mg twice daily. Will add hydralazine 10 mg IV every 4 hours as needed for systolic blood pressure more than 160 mmHg. If blood pressure still elevated tomorrow will uptitrate other oral medications. Left leg pain: No concerns of cellulitis. Doppler negative for DVT. Continue with home dose of Eliquis. Type 2 diabetes mellitus: A1c 7.9. Continue with sliding scale at low-dose protocol. Restart home dose of Lantus 5 units nightly Full code Advance diet as per speech evaluation Protonix for PUD prophylaxis Eliquis will be sufficient for DVT prophylaxis. Attestations 2 Medical Necessity Statement*: Requires further hospitalization for management of acute metabolic encephalopathy in setting of polypharmacy and UTI in a patient with baseline suprapubic catheter and colostomy Diagnoses Acute encephalopathy G93.40 UTI (urinary tract infection) N39.0 Left leg pain M79.605 Chronic suprapubic catheter Z93.59 History of DVT (deep vein thrombosis) Z86.718 DM II (diabetes mellitus, type II), controlled E11.9 Hypertension, benign I10
[2024-01-08 16:27] LABS: Glucose Point of Care 218 mg/dL (70-110)
--- NOTE | 2024-01-08 17:02 | PC.NURSE ---
This nurse assumed care of pt at 1700.
[2024-01-08] MEDS: venlafaxine ER (24HR) 150 mg Capsule PO (17:25)
[2024-01-08] MEDS: atorvastatin 40 mg Tablet 10 MG PO (17:25)
[2024-01-08] MEDS: nortriptyline 25 mg Capsule PO (17:26)
[2024-01-08] MEDS: quetiapine 25 mg Tablet PO (17:26)
[2024-01-08] MEDS: LORazepam 0.5 mg Tablet 0.25 MG PO (17:26)
[2024-01-08 20:39] LABS: Glucose Point of Care 183 mg/dL (70-110)
[2024-01-08] MEDS: insulin glargine 100 units/1 mL 5 UNIT SUBCUT (21:15)
[2024-01-08] MEDS: hyDRALAzine 20 mg/mL INJ 1 mL 10 MG IVP (21:16)
[2024-01-09] VITALS (8 sets, daily range): BP systolic 124–180; BP diastolic 73–97; PULSE 77–96; RESP 15–20; TEMP 36.4–36.9; O2SAT 95–97
[2024-01-09 02:58] LABS: Basophils % 0.4 %; Eosinophils % 0.1 %; Hematocrit 36.9 % (36-47); Mean Corpuscular HGB Conc 33.1 g/dL (30-55); Mean Corpuscular Hemoglobin 29.7 pg (27-33); Mean Corpuscular Volume 89.8 fl (85-98); Mean Platelet Volume 8.8 fL (7.4-10.4); Monocytes # 0.5 10^3/uL (0.2-0.9); Monocytes % 7.7 %; Neutrophils # 4.23 10^3/uL (1.8-7.7); Neutrophils % 62.5 %; Nucleated Red Blood Cells % 0 %; Platelet Count 288 10^3/cmm (157-399); Red Blood Count 4.11 10^6/uL (3.85-5.65); Red Cell Distribution Width 14.5 % (12.1-15.1); White Blood Count 6.77 10^3/uL (3.29-11.43)
[2024-01-09 03:15] LABS: Vancomycin Trough 13.9 ug/mL (10-15)
[2024-01-09 03:18] LABS: Alanine Aminotransferase 18 U/L (0-33); Albumin Level 3.8 g/dL (3.5-5.2); Alkaline Phosphatase 146 U/L (35-105); Anion Gap 15.3 (5-19); Aspartate Amino Transferase 19 U/L (0-32); Blood Urea Nitrogen 9 mg/dL (8-23); Calcium 8.7 mg/dL (8.5-10.5); Carbon Dioxide 25 mmol/L (22-29); Chloride 105 mmol/L (98-107); Creatinine Clr Calc Pharmacy 103.4932; Glomerular Filtration Rate 73.2 mL/min (90-130); Glucose 174 mg/dL (65-115); Magnesium 1.6 mg/dL (1.7-2.3); Osmolality Calculated 297 mOsm/kg (285-295); Potassium 3.3 mmol/L (3.5-5.1); Sodium 142 mmol/L (136-145); Total Bilirubin 0.4 mg/dL (0.15-1.2); Total Protein 6.8 g/dL (6.6-8.7)
[2024-01-09] MEDS: vancomycin 1,000 MG in sodium chloride 0.9% 250 ML 250 MG IV ×2 (03:18→15:15)
[2024-01-09] MEDS: piperacillin-tazobactam 3.375 GM in sodium chloride 0.9% (plus) 50 ML IV ×3 (04:26→20:03)
[2024-01-09] MEDS: pantoprazole 40 mg SDV IVP (05:27)
[2024-01-09] MEDS: hyDRALAzine 20 mg/mL INJ 1 mL 10 MG IVP (05:27)
[2024-01-09] MEDS: oxyCODONE 5 mg IR Tab/Cap PO ×3 (06:23→17:28)
[2024-01-09] MEDS: LORazepam 0.5 mg Tablet PO (06:23)
[2024-01-09 06:38] LABS: Glucose Point of Care 198 mg/dL (70-110)
[2024-01-09] MEDS: insulin lispro 100 unit/1 mL SUBCUT ×3 (08:32→17:34)
[2024-01-09] MEDS: metoprolol tartrate 25 mg Tablet PO (08:32)
[2024-01-09] MEDS: LORazepam 0.5 mg Tablet 0.25 MG PO ×2 (08:33→17:28)
[2024-01-09] MEDS: apixaban 5 mg Tablet PO ×2 (08:33→17:29)
[2024-01-09] MEDS: aspirin 81 mg EC Tablet PO ×2 (08:33→17:29)
[2024-01-09] MEDS: BuSPIRONE 10 mg Tablet 15 MG PO ×3 (08:33→20:02)
[2024-01-09] MEDS: amlodipine 10 mg Tablet PO (08:33)
--- NOTE | 2024-01-09 10:07 | PC.SLP ---
Patient requested no speech therapy.
[2024-01-09] MEDS: pregabalin 50 mg Capsule PO ×3 (10:31→20:02)
[2024-01-09 11:34] LABS: Glucose Point of Care 233 mg/dL (70-110)
--- NOTE | 2024-01-09 12:37 | P.PN_ITS ---
Subjective 2 Subjective: Today morning on examination patient is awake and alert. Denies any nausea, vomiting, headache. Has remained hemodynamically stable and afebrile. Patient is back to her baseline mentation. Vitals/I&O/Wt Last Vital Signs Temp 98.2 F 01/09/24 11:22 Pulse 77 01/09/24 11:22 Resp 16 01/09/24 11:22 BP 162/93 01/09/24 11:22 Pulse Ox 96 01/09/24 11:22 O2 Del Method Room Air 01/09/24 11:22 FiO2 21 01/08/24 19:52 01/08/24 01/09/24 01/09/24 22:59 06:59 14:59 Intake Total 760 / 810 540 / 1350 770 / 770 Output Total 600 / 600 Balance 160 / 210 540 / 750 770 / 770 Weight last 48 hrs Weight 118.887 kg Weight 119.862 kg Physical Exam 2 Const: COMMON NORMALS: no acute distress ORIENTATION/CONSCIOUSNESS: Yes awake, Yes oriented to person, Yes oriented to place, Yes oriented to time and Yes confused HENMT: COMMON NORMALS: normocephalic HEAD & SCALP: normocephalic Eye: COMMON NORMALS: Equal, round and reactive pupils present PUPIL: Yes Equal, round and reactive pupils present Resp: COMMON NORMALS: normal respiratory effort, No retractions, No use of accessory muscles and clear to auscultation bilaterally AUSCULTATION: clear to auscultation bilaterally Cardio: COMMON NORMALS: regular rate, regular rhythm, S1 normal heart sound present and S2 normal heart sound present RATE: regular rate RHYTHM: r egular rhythm HEART SOUNDS: S1 normal heart sound present and S2 normal heart sound present GI: COMMON NORMALS: Normal to inspection, nondistended, normoactive bowel sounds present, Soft to palpation and non-tender PALPATION: Yes Soft to palpation Extremity: COMMON NORMALS: no calf tenderness and no pedal edema NARRATIVE EXTREMITY EXAM: Right below-knee amputation, left leg swelling, no significant erythema, no tenderness, no calf swelling or tenderness Left leg, DP PT pulses palpable, good capillary refill, no mottling Neuro: SENSORIUM/ORIENTATION: Yes oriented to person, Yes oriented to place and Yes oriented to time OTHER: Neurologic testing is difficult given her encephalopathy Data 01/09/24 02:39 01/09/24 02:39 Micro: Microbiology 01/06/24 22:37 Urine Culture - Preliminary Urine,Clean Catch Gram Negative Rods Gram Negative Rods#2 A&P Assessment and plan (1) Acute encephalopathy: (2) UTI (urinary tract infection): (3) Left leg pain: (4) Chronic suprapubic catheter: (5) History of DVT (deep vein thrombosis): (6) DM II (diabetes mellitus, type II), controlled: (7) Hypertension, benign: Plan Acute encephalopathy: Most likely in setting of polypharmacy along with UTI. Resolved. Patient takes multiple medications including BuSpar 15 mg 3 times daily, dantrolene 25 mg 3 times daily, Ativan 0.5 twice daily along with every 6 hours as needed, oxycodone 5 to 10 mg every 4 hours as needed, pregabalin 100 mg twice daily, 50 mg q. noon, 25 mg twice daily as needed, Effexor nightly. For now we will continue all other medications except change scheduled Ativan to 0.25 twice daily, change as needed to Q8 as needed, oxycodone 5 mg every 4 hours as needed, pregabalin to 50 mg 3 times daily. UTI: Complicated UTI with history of suprapubic catheter. Follow-up blood culture. Urine culture growing 2 different gram-negative rods. For now continue with IV antibiotics with Zosyn and vancomycin. De-escalate as per culture results. History of UTI with E. coli and Enterococcus faecalis in the past. Should be covered with above antibiotics. Hypertension: Goal blood pressure less than 140/90 mmHg. Blood pressure still elevated even though Ativan has been started at a half low- dose scheduled twice daily. Will add hydralazine 25 mg 3 times daily and uptitrate as per goal blood pressures. Continue with amlodipine 10 mg oral daily and switch to carvedilol 6.25 mcg twice daily from metoprolol Continue with hydralazine 10 mg IV every 4 hours as needed for systolic blood pressure more than 160 mmHg. If blood pressure still elevated tomorrow will uptitrate other oral medications. Left leg pain: No concerns of cellulitis. Doppler negative for DVT. Continue with home dose of Eliquis. Type 2 diabetes mellitus: A1c 7.9. Continue with sliding scale at low-dose protocol. Restart home dose of Lantus 5 units nightly Replace 1 g magnesium, 80 mg of potassium. Full code Advance diet as per speech evaluation Protonix for PUD prophylaxis Eliquis will be sufficient for DVT prophylaxis. Attestations 2 Medical Necessity Statement*: Requires further hospitalization for management of complicated UTI in a patient with suprapubic catheter leading to acute encephalopathy along with polypharmacy. Diagnoses Acute encephalopathy G93.40 UTI (urinary tract infection) N39.0 Left leg pain M79.605 Chronic suprapubic catheter Z93.59 History of DVT (deep vein thrombosis) Z86.718 DM II (diabetes mellitus, type II), controlled E11.9 Hypertension, benign I10
--- NOTE | 2024-01-09 13:14 | PC.SOCIAL ---
IMM Updated Updated pt on IMM. No questions voiced. Provided pt a copy. Initialed, dated, & timed a copy & placed in chart.
[2024-01-09] MEDS: magnesium sulfate premix 1 GM/100 ML PIGGYBACK IV (13:41)
[2024-01-09] MEDS: potassium chloride ER 20 mEq Tablet 80 MEQ PO (13:42)
[2024-01-09] MEDS: lidocaine 5% Patch 1 PATCH TOPICAL (14:24)
[2024-01-09] MEDS: capsaicin 0.025% cream 60 gm 1 APPLIC TOPICAL (14:25)
[2024-01-09] MEDS: hyDRALAzine 25 mg Tablet PO ×2 (14:27→20:02)
[2024-01-09 17:22] LABS: Glucose Point of Care 209 mg/dL (70-110)
[2024-01-09] MEDS: carvedilol 6.25 mg Tablet PO (17:28)
[2024-01-09] MEDS: nortriptyline 25 mg Capsule PO (17:28)
[2024-01-09] MEDS: venlafaxine ER (24HR) 150 mg Capsule PO (17:28)
[2024-01-09] MEDS: atorvastatin 40 mg Tablet 10 MG PO (17:28)
[2024-01-09] MEDS: quetiapine 25 mg Tablet PO (17:29)
[2024-01-09] MEDS: TRAMadol 50 mg Tablet PO (21:27)
[2024-01-09] MEDS: insulin glargine 100 units/1 mL 5 UNIT SUBCUT (21:28)
[2024-01-09 21:31] LABS: Glucose Point of Care 208 mg/dL (70-110)
[2024-01-10] VITALS (8 sets, daily range): BP systolic 132–206; BP diastolic 68–102; PULSE 80–102; RESP 17–18; TEMP 36.7–36.8; O2SAT 93–96
[2024-01-10] MEDS: hyDROXYzine 25 mg Capsule PO (01:04)
[2024-01-10] MEDS: vancomycin 1,000 MG in sodium chloride 0.9% 250 ML 250 MG IV (02:04)
[2024-01-10] MEDS: oxyCODONE 5 mg IR Tab/Cap PO ×4 (02:17→17:24)
[2024-01-10] MEDS: piperacillin-tazobactam 3.375 GM in sodium chloride 0.9% (plus) 50 ML IV ×3 (03:56→20:49)
[2024-01-10 05:26] LABS: Basophils % 0.7 %; Eosinophils % 0.2 %; Hematocrit 36.9 % (36-47); Lymphocytes # 1.8 10^3/uL (0.8-4.8); Lymphocytes % 33.1 %; Mean Corpuscular HGB Conc 31.7 g/dL (30-55); Mean Corpuscular Hemoglobin 29.7 pg (27-33); Mean Corpuscular Volume 93.7 fl (85-98); Mean Platelet Volume 9.2 fL (7.4-10.4); Monocytes # 0.5 10^3/uL (0.2-0.9); Monocytes % 8.7 %; Neutrophils # 3.07 10^3/uL (1.8-7.7); Neutrophils % 57.1 %; Nucleated Red Blood Cells % 0 %; Platelet Count 258 10^3/cmm (157-399); Red Blood Count 3.94 10^6/uL (3.85-5.65); Red Cell Distribution Width 14.7 % (12.1-15.1); White Blood Count 5.38 10^3/uL (3.29-11.43)
[2024-01-10 05:46] LABS: Alanine Aminotransferase 20 U/L (0-33); Albumin Level 3.5 g/dL (3.5-5.2); Alkaline Phosphatase 123 U/L (35-105); Anion Gap 14.8 (5-19); Aspartate Amino Transferase 22 U/L (0-32); Blood Urea Nitrogen 9 mg/dL (8-23); Calcium 8.3 mg/dL (8.5-10.5); Carbon Dioxide 21 mmol/L (22-29); Chloride 108 mmol/L (98-107); Creatinine Clr Calc Pharmacy 118.8284; Globulin 3.3 g/dL (1.3-4.6); Glomerular Filtration Rate 85.4 mL/min (90-130); Glucose 185 mg/dL (65-115); Magnesium 1.9 mg/dL (1.7-2.3); Osmolality Calculated 293 mOsm/kg (285-295); Potassium 3.8 mmol/L (3.5-5.1); Sodium 140 mmol/L (136-145); Total Bilirubin 0.5 mg/dL (0.15-1.2); Total Protein 6.8 g/dL (6.6-8.7)
[2024-01-10] MEDS: pantoprazole 40 mg SDV IVP (06:18)
[2024-01-10] MEDS: capsaicin 0.025% cream 60 gm 1 APPLIC TOPICAL ×3 (06:18→15:14)
[2024-01-10 06:37] LABS: Glucose Point of Care 192 mg/dL (70-110)
[2024-01-10] MEDS: hyDRALAzine 20 mg/mL INJ 1 mL 10 MG IVP (09:45)
[2024-01-10] MEDS: amlodipine 10 mg Tablet PO (09:46)
[2024-01-10] MEDS: insulin lispro 100 unit/1 mL SUBCUT ×4 (09:46→20:52)
[2024-01-10] MEDS: BuSPIRONE 10 mg Tablet 15 MG PO ×3 (09:46→20:51)
[2024-01-10] MEDS: pregabalin 50 mg Capsule PO ×3 (09:46→20:51)
[2024-01-10] MEDS: hyDRALAzine 25 mg Tablet PO ×2 (09:47→12:36)
[2024-01-10] MEDS: LORazepam 0.5 mg Tablet 0.25 MG PO ×2 (09:47→19:14)
[2024-01-10] MEDS: TRAMadol 50 mg Tablet PO (09:47)
[2024-01-10] MEDS: aspirin 81 mg EC Tablet PO ×2 (09:47→17:23)
[2024-01-10] MEDS: apixaban 5 mg Tablet PO ×2 (09:48→17:24)
[2024-01-10] MEDS: carvedilol 6.25 mg Tablet PO ×2 (09:48→12:36)
--- NOTE | 2024-01-10 10:10 | PC.NURSE ---
Pt requests to wait until later to put on lidocaine patch.
--- NOTE | 2024-01-10 10:11 | PC.NURSE ---
BP of 206/102 assessed manually. Hydralazine given IV per PRN orders.
[2024-01-10 10:48] LABS: Glucose Point of Care 281 mg/dL (70-110)
[2024-01-10] MEDS: lidocaine 5% Patch 1 PATCH TOPICAL (11:57)
[2024-01-10] MEDS: baclofen 10 mg Tablet PO (12:36)
--- NOTE | 2024-01-10 13:47 | PICC.NOTE ---
Midline placed to right brachial vein. Referred to vascular access nurse for midline placement due to poor access and need for antibiotics for UTI. Risks and benefits discussed and informed consent obtained from pt. Right arm assessed with right brachial vein measuring 3.2 mm, straight, and apparent best choice for placement. Using sterile technique and MST,right brachial vein accessed x 1 stick. Mid-arm circumference measured 10 cm from right AC 38 cm. Trimmed cath 12 cm with 1 cm external length noted. Line secured with stat-lock. Insertion site covered with Biopatch and TSM. Report given to bedside nurse, AVELINO Baker.
--- NOTE | 2024-01-10 13:51 | P.PN_ITS ---
Subjective 2 Subjective: No acute events overnight. Today she states she is feeling better but slightly nervous. She is worried about her high blood pressures. Denies any nausea, vomiting, headache. Vitals/I&O/Wt Last Vital Signs Temp 98.1 F 01/10/24 10:46 Pulse 102 H 01/10/24 10:46 Resp 18 01/10/24 10:46 BP 180/86 01/10/24 10:46 Pulse Ox 95 01/10/24 10:46 O2 Del Method CPAP 01/10/24 10:46 FiO2 20 01/09/24 22:40 01/09/24 01/10/24 01/10/24 22:59 06:59 14:59 Intake Total 500 / 1270 780.000 / 2050.000 538.333 / 538.333 Output Total 775 / 775 950 / 950 Balance 500 / 1270 5.000 / 1275.000 -411.667 / -411.667 Weight last 48 hrs Weight 120.882 kg Weight 118.887 kg Physical Exam 2 Const: COMMON NORMALS: no acute distress ORIENTATION/CONSCIOUSNESS: Yes awake, Yes oriented to person, Yes oriented to place and Yes oriented to time HENMT: COMMON NORMALS: normocephalic HEAD & SCALP: normocephalic Eye: COMMON NORMALS: Equal, round and reactive pupils present PUPIL: Yes Equal, round and reactive pupils present Resp: COMMON NORMALS: normal respiratory effort, No retractions, No use of accessory muscles and clear to auscultation bilaterally AUSCULTATION: clear to auscultation bilaterally Cardio: COMMON NORMALS: regular rate, regular rhythm, S1 normal heart sound present and S2 normal heart sound present RATE: regular rate RHYTHM: r egular rhythm HEART SOUNDS: S1 normal heart sound present and S2 normal heart sound present GI: COMMON NORMALS: Normal to inspection, nondistended, normoactive bowel sounds present, Soft to palpation and non-tender PALPATION: Yes Soft to palpation Extremity: COMMON NORMALS: no calf tenderness and no pedal edema NARRATIVE EXTREMITY EXAM: Right below-knee amputation, left leg swelling, no significant erythema, no tenderness, no calf swelling or tenderness Left leg, DP PT pulses palpable, good capillary refill, no mottling Neuro: SENSORIUM/ORIENTATION: Yes oriented to person, Yes oriented to place and Yes oriented to time Data 01/10/24 05:09 01/10/24 05:09 Micro: Microbiology 01/06/24 22:37 Urine Culture - Preliminary Urine,Clean Catch Pseudomonas aeruginosa Gram Negative Rods#2 A&P Assessment and plan (1) Acute encephalopathy: (2) UTI (urinary tract infection): (3) Left leg pain: (4) Chronic suprapubic catheter: (5) History of DVT (deep vein thrombosis): (6) DM II (diabetes mellitus, type II), controlled: (7) Hypertension, benign: Plan Acute encephalopathy: Most likely in setting of polypharmacy along with UTI. Resolved. Patient takes multiple medications including BuSpar 15 mg 3 times daily, dantrolene 25 mg 3 times daily, Ativan 0.5 twice daily along with every 6 hours as needed, oxycodone 5 to 10 mg every 4 hours as needed, pregabalin 100 mg twice daily, 50 mg q. noon, 25 mg twice daily as needed, Effexor nightly. For now we will continue all other medications except change scheduled Ativan to 0.25 twice daily, change as needed to Q8 as needed, oxycodone 5 mg every 4 hours as needed, pregabalin to 50 mg 3 times daily. UTI: Complicated UTI with history of suprapubic catheter. Follow-up blood culture. Urine culture growing 2 different gram-negative rods. For now continue with IV antibiotics with Zosyn and vancomycin. De-escalate as per culture results. History of UTI with E. coli and Enterococcus faecalis in the past. Should be covered with above antibiotics. Hypertension: Goal blood pressure less than 140/90 mmHg. Blood pressure still elevated even though Ativan has been started at a half low- dose scheduled twice daily. Will add hydralazine 25 mg 3 times daily and uptitrate as per goal blood pressures. Continue with amlodipine 10 mg oral daily and switch to carvedilol 6.25 mcg twice daily from metoprolol Continue with hydralazine 10 mg IV every 4 hours as needed for systolic blood pressure more than 160 mmHg. If blood pressure still elevated tomorrow will uptitrate other oral medications. Left leg pain: No concerns of cellulitis. Doppler negative for DVT. Continue with home dose of Eliquis. Type 2 diabetes mellitus: A1c 7.9. Continue with sliding scale at low-dose protocol. Restart home dose of Lantus 5 units nightly Replace 1 g magnesium, 80 mg of potassium. Plan for the day: Urine culture growing Pseudomonas and gram-negative zeke type II. Appreciate sensitivities. For now continue with IV Zosyn. No concern for gram-positive infection for now. Discontinue vancomycin. Blood pressures continue to remain elevated. Will increase dose of hydralazine to 50 mg 3 times daily and Coreg to 12.5 mg twice daily. Could also be in setting of withdrawal from chronic antianxiety and pain medications even though she is getting most of her medications as before. Continue to use pregabalin at 50 mg 3 times daily. Change Ativan to match home dose of 0.5 twice daily along with every 6 as needed. Monitor blood pressures. Patient has lost multiple IV lines. Can place a midline as she might need IV antibiotics for Pseudomonas coverage with IV cefepime every 12 hourly at the least for overall 10-day course from 01/06 in setting of complicated UTI due to suprapubic catheter placement. Change suprapubic catheter Full code Carb consistent cardiac regular diet Protonix for PUD prophylaxis Eliquis will be sufficient for DVT prophylaxis. Attestations 2 Medical Necessity Statement*: Requires further hospitalization for management of sepsis in setting of complicated UTI in a patient with baseline suprapubic catheter leading to altered mental status Diagnoses Acute encephalopathy G93.40 UTI (urinary tract infection) N39.0 Left leg pain M79.605 Chronic suprapubic catheter Z93.59 History of DVT (deep vein thrombosis) Z86.718 DM II (diabetes mellitus, type II), controlled E11.9 Hypertension, benign I10
[2024-01-10] MEDS: hyDRALAzine 50 mg Tablet PO ×2 (15:13→20:50)
[2024-01-10 16:55] LABS: Glucose Point of Care 142 mg/dL (70-110)
[2024-01-10] MEDS: carvedilol 12.5 mg Tablet PO (17:23)
[2024-01-10] MEDS: quetiapine 25 mg Tablet PO (17:23)
[2024-01-10] MEDS: LORazepam 0.5 mg Tablet PO (17:24)
[2024-01-10] MEDS: nortriptyline 25 mg Capsule PO (17:24)
[2024-01-10] MEDS: venlafaxine ER (24HR) 150 mg Capsule PO (17:25)
[2024-01-10] MEDS: atorvastatin 40 mg Tablet 10 MG PO (17:25)
--- NOTE | 2024-01-10 18:39 | PC.NURSE ---
This nurse administered half of a 0.5mg tablet of Ativan. Wasted 0.25mg with Brandon Leach RN. Dr. Harrington notified. New order for 0.25mg ordered, to equal the entire 0.5mg dose.
[2024-01-10 20:20] LABS: Glucose Point of Care 159 mg/dL (70-110)
[2024-01-10] MEDS: insulin glargine 100 units/1 mL 5 UNIT SUBCUT (20:51)
[2024-01-11] VITALS (8 sets, daily range): BP systolic 107–170; BP diastolic 63–84; PULSE 75–106; RESP 17–19; TEMP 36.6–36.9; O2SAT 91–98
[2024-01-11] MEDS: capsaicin 0.025% cream 60 gm 1 APPLIC TOPICAL (01:58)
[2024-01-11] MEDS: piperacillin-tazobactam 3.375 GM in sodium chloride 0.9% (plus) 50 ML IV ×2 (04:18→12:14)
[2024-01-11 04:40] LABS: Basophils % 0.6 %; Eosinophils % 0.2 %; Hematocrit 35.3 % (36-47); Lymphocytes # 1.6 10^3/uL (0.8-4.8); Mean Corpuscular HGB Conc 32.3 g/dL (30-55); Mean Corpuscular Volume 92.9 fl (85-98); Mean Platelet Volume 8.9 fL (7.4-10.4); Monocytes # 0.5 10^3/uL (0.2-0.9); Monocytes % 8.5 %; Neutrophils % 65.4 %; Nucleated Red Blood Cells % 0 %; Platelet Count 253 10^3/cmm (157-399); Red Cell Distribution Width 14.8 % (12.1-15.1); White Blood Count 6.27 10^3/uL (3.29-11.43)
[2024-01-11 04:59] LABS: Alanine Aminotransferase 22 U/L (0-33); Albumin Level 3.4 g/dL (3.5-5.2); Alkaline Phosphatase 111 U/L (35-105); Anion Gap 15.4 (5-19); Aspartate Amino Transferase 25 U/L (0-32); Blood Urea Nitrogen 11 mg/dL (8-23); Calcium 8.6 mg/dL (8.5-10.5); Carbon Dioxide 23 mmol/L (22-29); Chloride 106 mmol/L (98-107); Creatinine Clr Calc Pharmacy 92.4221; Globulin 3.1 g/dL (1.3-4.6); Glomerular Filtration Rate 63.9 mL/min (90-130); Glucose 168 mg/dL (65-115); Osmolality Calculated 295 mOsm/kg (285-295); Potassium 3.4 mmol/L (3.5-5.1); Sodium 141 mmol/L (136-145); Total Bilirubin 0.5 mg/dL (0.15-1.2); Total Protein 6.5 g/dL (6.6-8.7)
[2024-01-11] MEDS: pantoprazole 40 mg SDV IVP (05:16)
[2024-01-11] MEDS: acetaminophen 325 mg Tablet 650 MG PO (05:16)
[2024-01-11 06:21] LABS: Glucose Point of Care 196 mg/dL (70-110)
[2024-01-11] MEDS: insulin lispro 100 unit/1 mL SUBCUT ×4 (08:49→22:18)
[2024-01-11] MEDS: LORazepam 0.5 mg Tablet PO ×2 (08:50→18:03)
[2024-01-11] MEDS: pregabalin 50 mg Capsule PO ×3 (08:50→22:14)
[2024-01-11] MEDS: carvedilol 12.5 mg Tablet PO ×2 (08:50→18:03)
[2024-01-11] MEDS: baclofen 10 mg Tablet PO (08:50)
[2024-01-11] MEDS: BuSPIRONE 10 mg Tablet 15 MG PO ×3 (08:50→22:14)
[2024-01-11] MEDS: hyDRALAzine 50 mg Tablet PO ×3 (08:50→22:14)
[2024-01-11] MEDS: amlodipine 10 mg Tablet PO (08:50)
[2024-01-11] MEDS: aspirin 81 mg EC Tablet PO ×2 (08:50→18:02)
[2024-01-11] MEDS: apixaban 5 mg Tablet PO ×2 (08:50→18:02)
[2024-01-11] MEDS: oxyCODONE 5 mg IR Tab/Cap PO ×2 (08:50→18:02)
[2024-01-11 11:39] LABS: Glucose Point of Care 196 mg/dL (70-110)
--- NOTE | 2024-01-11 13:01 | P.PN_ITS ---
Subjective 2 Subjective: No acute events overnight. Today morning seen sitting up in chair. In good spirits. States feeling a lot better. Blood pressure better controlled. Denies any nausea, vomiting, headache. Vitals/I&O/Wt Last Vital Signs Temp 97.8 F 01/11/24 12:00 Pulse 84 01/11/24 12:00 Resp 18 01/11/24 12:00 BP 140/80 01/11/24 12:00 Pulse Ox 95 01/11/24 12:00 O2 Del Method Room Air 01/11/24 12:00 FiO2 20 01/11/24 00:21 01/10/24 01/11/24 01/11/24 22:59 06:59 14:59 Intake Total 641.667 / 1180.000 290 / 1470.000 530 / 530 Output Total 100 / 1050 200 / 1250 200 / 200 Balance 541.667 / 130.000 90 / 220.000 330 / 330 Weight last 48 hrs Weight 119.386 kg Weight 120.882 kg Physical Exam 2 Const: COMMON NORMALS: no acute distress ORIENTATION/CONSCIOUSNESS: Yes awake, Yes oriented to person, Yes oriented to place, Yes oriented to time and Yes confused HENMT: COMMON NORMALS: normocephalic HEAD & SCALP: normocephalic Eye: COMMON NORMALS: Equal, round and reactive pupils present PUPIL: Yes Equal, round and reactive pupils present Resp: COMMON NORMALS: normal respiratory effort, No retractions, No use of accessory muscles and clear to auscultation bilaterally AUSCULTATION: clear to auscultation bilaterally Cardio: COMMON NORMALS: regular rate, regular rhythm, S1 normal heart sound present and S2 normal heart sound present RATE: regular rate RHYTHM: r egular rhythm HEART SOUNDS: S1 normal heart sound present and S2 normal heart sound present GI: COMMON NORMALS: Normal to inspection, nondistended, normoactive bowel sounds present, Soft to palpation and non-tender PALPATION: Yes Soft to palpation Extremity: COMMON NORMALS: no calf tenderness and no pedal edema NARRATIVE EXTREMITY EXAM: Right below-knee amputation, left leg swelling, no significant erythema, no tenderness, no calf swelling or tenderness Left leg, DP PT pulses palpable, good capillary refill, no mottling Neuro: SENSORIUM/ORIENTATION: Yes oriented to person, Yes oriented to place and Yes oriented to time OTHER: Neurologic testing is difficult given her encephalopathy Urinary Catheter Management: Suprapubic: Cath Placed During This Visit: yes Reason for Continuing Indwelling Catheter: Chronic Indwelling Urinary Catheter on Admission Urinary Catheter Date of Insertion: 01/10/24 Urinary Catheter Time of Insertion: 15:00 Data 01/11/24 04:27 01/11/24 04:27 Micro: Microbiology 01/06/24 22:37 Urine Culture - Final Urine,Clean Catch Pseudomonas aeruginosa Klebsiella pneumoniae A&P Assessment and plan (1) Acute encephalopathy: (2) UTI (urinary tract infection): (3) Left leg pain: (4) Chronic suprapubic catheter: (5) History of DVT (deep vein thrombosis): (6) DM II (diabetes mellitus, type II), controlled: (7) Hypertension, benign: Plan Acute encephalopathy: Most likely in setting of polypharmacy along with UTI. Resolved. Patient takes multiple medications including BuSpar 15 mg 3 times daily, dantrolene 25 mg 3 times daily, Ativan 0.5 twice daily along with every 6 hours as needed, oxycodone 5 to 10 mg every 4 hours as needed, pregabalin 100 mg twice daily, 50 mg q. noon, 25 mg twice daily as needed, Effexor nightly. For now we will continue all other medications except change scheduled Ativan to 0.25 twice daily, change as needed to Q8 as needed, oxycodone 5 mg every 4 hours as needed, pregabalin to 50 mg 3 times daily. UTI: Complicated UTI with history of suprapubic catheter. Follow-up blood culture. Urine culture growing 2 different gram-negative rods. For now continue with IV antibiotics with Zosyn and vancomycin. De-escalate as per culture results. History of UTI with E. coli and Enterococcus faecalis in the past. Should be covered with above antibiotics. Hypertension: Goal blood pressure less than 140/90 mmHg. Blood pressure still elevated even though Ativan has been started at a half low- dose scheduled twice daily. Will add hydralazine 25 mg 3 times daily and uptitrate as per goal blood pressures. Continue with amlodipine 10 mg oral daily and switch to carvedilol 6.25 mcg twice daily from metoprolol Continue with hydralazine 10 mg IV every 4 hours as needed for systolic blood pressure more than 160 mmHg. If blood pressure still elevated tomorrow will uptitrate other oral medications. Left leg pain: No concerns of cellulitis. Doppler negative for DVT. Continue with home dose of Eliquis. Type 2 diabetes mellitus: A1c 7.9. Continue with sliding scale at low-dose protocol. Restart home dose of Lantus 5 units nightly Replace 1 g magnesium, 80 mg of potassium. Plan for the day: Urine culture growing Pseudomonas and Klebsiella. Sensitivities appreciated. Patient switched from IV Zosyn to cefepime 1 g every 12 hourly. Will finish overall 10-day course given concerns for complicated UTI in setting of suprapubic catheter. Suprapubic catheter changed on 01/09. Blood pressure is better controlled. For now continue with hydralazine 50 mg 3 times a day, Coreg 12.5 mg twice daily along with amlodipine 10 mg oral daily. Midline in place. Continue other chronic medications were modified dose of pregabalin 50 mg 3 times a day, Ativan 0.5 mg twice daily along with as needed every 6 hours. Discharge plan: Most likely plan to discharge back to SNF in next 24 hours IV antibiotics for overall 10-day course for complicated UTI from Pseudomonas and Klebsiella on IV cefepime. Full code Carb consistent cardiac regular diet Protonix for PUD prophylaxis Eliquis will be sufficient for DVT prophylaxis. Attestations 2 Medical Necessity Statement*: Requires further hospitalization for management of complicated UTI from Pseudomonas and Flexhaler, altered mental status in setting of UTI and polypharmacy while outpatient antibiotics are set up and antihypertensives adjusted Diagnoses Acute encephalopathy G93.40 UTI (urinary tract infection) N39.0 Left leg pain M79.605 Chronic suprapubic catheter Z93.59 History of DVT (deep vein thrombosis) Z86.718 DM II (diabetes mellitus, type II), controlled E11.9 Hypertension, benign I10
[2024-01-11] MEDS: cefepime 1,000 MG in sodium chloride 0.9% (plus) 50 ML 100 MG IV (14:51)
[2024-01-11] MEDS: TRAMadol 50 mg Tablet PO (14:52)
[2024-01-11 16:30] LABS: Glucose Point of Care 212 mg/dL (70-110)
[2024-01-11] MEDS: quetiapine 25 mg Tablet PO (18:02)
[2024-01-11] MEDS: nortriptyline 25 mg Capsule PO (18:02)
[2024-01-11] MEDS: venlafaxine ER (24HR) 150 mg Capsule PO (18:02)
[2024-01-11] MEDS: atorvastatin 40 mg Tablet 10 MG PO (18:02)
[2024-01-11 21:19] LABS: Glucose Point of Care 161 mg/dL (70-110)
[2024-01-11] MEDS: insulin glargine 100 units/1 mL 5 UNIT SUBCUT (22:14)
[2024-01-11] MEDS: lidocaine 5% Patch 1 PATCH TOPICAL (22:15)
[2024-01-12] VITALS (9 sets, daily range): BP systolic 132–184; BP diastolic 63–83; PULSE 63–95; RESP 16–20; TEMP 36.1–36.9; O2SAT 92–96
[2024-01-12] MEDS: cefepime 1,000 MG in sodium chloride 0.9% (plus) 50 ML 100 MG IV ×2 (01:35→14:31)
[2024-01-12 03:13] LABS: Basophils % 0.6 %; Eosinophils % 0.4 %; Hematocrit 34.5 % (36-47); Lymphocytes # 1.4 10^3/uL (0.8-4.8); Lymphocytes % 26.4 %; Mean Corpuscular HGB Conc 32.5 g/dL (30-55); Mean Corpuscular Volume 92.5 fl (85-98); Mean Platelet Volume 9.2 fL (7.4-10.4); Monocytes # 0.5 10^3/uL (0.2-0.9); Monocytes % 9.4 %; Neutrophils # 3.35 10^3/uL (1.8-7.7); Nucleated Red Blood Cells % 0 %; Platelet Count 261 10^3/cmm (157-399); Red Blood Count 3.73 10^6/uL (3.85-5.65); Red Cell Distribution Width 14.9 % (12.1-15.1); White Blood Count 5.31 10^3/uL (3.29-11.43)
[2024-01-12 03:33] LABS: Alanine Aminotransferase 23 U/L (0-33); Albumin Level 3.4 g/dL (3.5-5.2); Alkaline Phosphatase 107 U/L (35-105); Aspartate Amino Transferase 27 U/L (0-32); Blood Urea Nitrogen 10 mg/dL (8-23); Calcium 8.4 mg/dL (8.5-10.5); Carbon Dioxide 22 mmol/L (22-29); Chloride 107 mmol/L (98-107); Creatinine Clr Calc Pharmacy 103.2684; Glomerular Filtration Rate 73.2 mL/min (90-130); Glucose 160 mg/dL (65-115); Osmolality Calculated 294 mOsm/kg (285-295); Sodium 141 mmol/L (136-145); Total Bilirubin 0.5 mg/dL (0.15-1.2); Total Protein 6.4 g/dL (6.6-8.7)
[2024-01-12 03:36] LABS: Anion Gap 15.5 (5-19); Potassium 3.5 mmol/L (3.5-5.1)
[2024-01-12] MEDS: pantoprazole 40 mg SDV IVP (06:25)
[2024-01-12] MEDS: acetaminophen 325 mg Tablet 650 MG PO ×2 (06:25→20:39)
[2024-01-12] MEDS: oxyCODONE 5 mg IR Tab/Cap PO ×2 (06:26→17:38)
[2024-01-12 06:38] LABS: Glucose Point of Care 200 mg/dL (70-110)
[2024-01-12] MEDS: pregabalin 50 mg Capsule PO ×3 (08:58→20:41)
[2024-01-12] MEDS: BuSPIRONE 10 mg Tablet 15 MG PO ×3 (08:58→20:40)
[2024-01-12] MEDS: amlodipine 10 mg Tablet PO (08:58)
[2024-01-12] MEDS: aspirin 81 mg EC Tablet PO ×2 (08:58→17:38)
[2024-01-12] MEDS: baclofen 10 mg Tablet PO ×2 (08:58→20:40)
[2024-01-12] MEDS: lidocaine 5% Patch 1 PATCH TOPICAL ×2 (08:59→21:03)
[2024-01-12] MEDS: apixaban 5 mg Tablet PO ×2 (08:59→17:38)
[2024-01-12] MEDS: insulin lispro 100 unit/1 mL SUBCUT ×4 (08:59→20:36)
[2024-01-12] MEDS: hyDRALAzine 50 mg Tablet PO ×3 (08:59→20:41)
[2024-01-12] MEDS: carvedilol 12.5 mg Tablet PO ×2 (08:59→17:38)
[2024-01-12] MEDS: LORazepam 0.5 mg Tablet PO ×2 (08:59→17:38)
--- NOTE | 2024-01-12 10:21 | PC.SOCIAL ---
IMM Update pg 2 of IMM updated and reviewed w/ patient. Copy provided and copy dated, initialed and placed in chart.
[2024-01-12 11:02] LABS: Glucose Point of Care 206 mg/dL (70-110)
[2024-01-12] MEDS: TRAMadol 50 mg Tablet PO ×2 (13:43→20:41)
[2024-01-12] MEDS: capsaicin 0.025% cream 60 gm 1 APPLIC TOPICAL ×3 (13:44→20:44)
[2024-01-12 16:38] LABS: Glucose Point of Care 200 mg/dL (70-110)
[2024-01-12] MEDS: quetiapine 25 mg Tablet PO (17:38)
[2024-01-12] MEDS: nortriptyline 25 mg Capsule PO (17:38)
[2024-01-12] MEDS: venlafaxine ER (24HR) 150 mg Capsule PO (17:38)
[2024-01-12] MEDS: atorvastatin 40 mg Tablet 10 MG PO (17:38)
--- NOTE | 2024-01-12 18:37 | P.PN_ITS ---
Subjective 2 Subjective: Patient was seen this morning, she denies any fevers, no chills, no cough Vitals/I&O/Wt Last Vital Signs Temp 97.9 F 01/12/24 15:37 Pulse 89 01/12/24 15:37 Resp 16 01/12/24 17:38 BP 152/63 01/12/24 15:37 Pulse Ox 96 01/12/24 15:37 O2 Del Method Room Air 01/12/24 15:37 FiO2 20 01/11/24 00:21 01/12/24 01/12/24 01/12/24 06:59 14:59 22:59 Intake Total 50 / 898.75 360 / 360 170 / 530 Output Total 375 / 1825 900 / 900 Balance -325 / -926.25 360 / 360 -730 / -370 Weight last 48 hrs Weight 118.796 kg Weight 119.386 kg Physical Exam 2 Const: COMMON NORMALS: no acute distress and patient oriented x3 Resp: COMMON NORMALS: normal respiratory effort, No retractions, No use of accessory muscles and clear to auscultation bilaterally AUSCULTATION: clear to auscultation bilaterally Cardio: COMMON NORMALS: regular rate, regular rhythm, S1 normal heart sound present and S2 normal heart sound present RATE: regular rate RHYTHM: r egular rhythm HEART SOUNDS: S1 normal heart sound present and S2 normal heart sound present GI: COMMON NORMALS: Normal to inspection, nondistended, normoactive bowel sounds present and non-tender Extremity: COMMON NORMALS: no pedal edema Neuro: COMMON NORMALS: patient oriented x3 Psych: COMMON NORMALS: mental status grossly normal Urinary Catheter Management: Suprapubic: Cath Placed During This Visit: yes Reason for Continuing Indwelling Catheter: Other Urinary Catheter Date of Insertion: 01/10/24 Urinary Catheter Time of Insertion: 15:00 Data 01/12/24 02:52 01/12/24 02:52 Micro: Microbiology 01/07/24 01:40 Blood Culture - Final Blood NO GROWTH AFTER 5 DAYS 01/07/24 01:36 Blood Culture - Final Blood NO GROWTH AFTER 5 DAYS A&P Assessment and plan (1) Acute encephalopathy: (2) UTI (urinary tract infection): (3) Left leg pain: (4) Chronic suprapubic catheter: (5) History of DVT (deep vein thrombosis): (6) DM II (diabetes mellitus, type II), controlled: (7) Hypertension, benign: Plan Acute encephalopathy: Resolved Patient takes multiple medications including BuSpar 15 mg 3 times daily, dantrolene 25 mg 3 times daily, Ativan 0.5 twice daily along with every 6 hours as needed, oxycodone 5 to 10 mg every 4 hours as needed, pregabalin 100 mg twice daily, 50 mg q. noon, 25 mg twice daily as needed, Effexor nightly. For now we will continue all other medications except change scheduled Ativan to 0.25 twice daily, change as needed to Q8 as needed, oxycodone 5 mg every 4 hours as needed, pregabalin to 50 mg 3 times daily. UTI: Complicated UTI with history of suprapubic catheter. Urine cultures growing Pseudomonas, Klebsiella Will continue cefepime 1 g every 12 hours for 10 days total Hypertension: Goal blood pressure less than 140/90 mmHg. hydralazine 25 mg 3 times daily and uptitrate as per goal blood pressures. Continue with amlodipine 10 mg oral daily and switch to carvedilol 6.25 mcg twice daily from metoprolol Continue with hydralazine 10 mg IV every 4 hours as needed for systolic blood pressure more than 160 mmHg. If blood pressure still elevated tomorrow will uptitrate other oral medications. Left leg pain: No concerns of cellulitis. Doppler negative for DVT. Continue with home dose of Eliquis. Type 2 diabetes mellitus: A1c 7.9. Continue with sliding scale at low-dose protocol. Restart home dose of Lantus 5 units nightly Plan for the day: Continue IV antibiotics, Full code Carb consistent cardiac regular diet Protonix for PUD prophylaxis Eliquis will be sufficient for DVT prophylaxis. Attestations 2 Medical Necessity Statement*: Patient requires hospitalization for UTI, complicated requiring IV antibiotics Diagnoses Acute encephalopathy G93.40 UTI (urinary tract infection) N39.0 Left leg pain M79.605 Chronic suprapubic catheter Z93.59 History of DVT (deep vein thrombosis) Z86.718 DM II (diabetes mellitus, type II), controlled E11.9 Hypertension, benign I10
[2024-01-12 20:36] LABS: Glucose Point of Care 262 mg/dL (70-110)
[2024-01-12] MEDS: insulin glargine 100 units/1 mL 5 UNIT SUBCUT (20:38)
[2024-01-13] MEDS: cefepime 1,000 MG in sodium chloride 0.9% (plus) 50 ML 100 MG IV (00:34)
[2024-01-13 04:00] VITALS: BP 135/75; PULSE 71; RESP 14; TEMP 36.3; O2SAT 93
[2024-01-13 05:30] LABS: Basophils % 0.5 %; Eosinophils % 0.2 %; Lymphocytes # 1.4 10^3/uL (0.8-4.8); Lymphocytes % 32.5 %; Mean Corpuscular HGB Conc 32.1 g/dL (30-55); Mean Corpuscular Hemoglobin 29.5 pg (27-33); Mean Corpuscular Volume 92.1 fl (85-98); Monocytes # 0.5 10^3/uL (0.2-0.9); Monocytes % 12.2 %; Neutrophils # 2.31 10^3/uL (1.8-7.7); Neutrophils % 54.4 %; Nucleated Red Blood Cells % 0 %; Platelet Count 205 10^3/cmm (157-399); Red Blood Count 3.69 10^6/uL (3.85-5.65); Red Cell Distribution Width 14.6 % (12.1-15.1); White Blood Count 4.25 10^3/uL (3.29-11.43)
[2024-01-13] MEDS: pantoprazole 40 mg SDV IVP (05:51)
[2024-01-13 05:52] LABS: Anion Gap 15.6 (5-19); Blood Urea Nitrogen 10 mg/dL (8-23); Calcium 8.4 mg/dL (8.5-10.5); Carbon Dioxide 23 mmol/L (22-29); Chloride 105 mmol/L (98-107); Creatinine Clr Calc Pharmacy 103.9966; Glomerular Filtration Rate 73.2 mL/min (90-130); Glucose 176 mg/dL (65-115); Osmolality Calculated 293 mOsm/kg (285-295); Potassium 3.6 mmol/L (3.5-5.1); Sodium 140 mmol/L (136-145)
[2024-01-13 07:05] LABS: SARS Covid-2 Antigen negative (Negative)
[2024-01-13 07:17] LABS: Glucose Point of Care 196 mg/dL (70-110)
[2024-01-13 08:00] VITALS: BP 146/78; PULSE 80; RESP 18; TEMP 36.6; O2SAT 95
[2024-01-13] MEDS: apixaban 5 mg Tablet PO (08:00)
[2024-01-13] MEDS: pregabalin 50 mg Capsule PO (08:00)
[2024-01-13] MEDS: LORazepam 0.5 mg Tablet PO (08:00)
[2024-01-13] MEDS: hyDRALAzine 50 mg Tablet PO (08:00)
[2024-01-13] MEDS: BuSPIRONE 10 mg Tablet 15 MG PO (08:00)
[2024-01-13] MEDS: carvedilol 12.5 mg Tablet PO (08:00)
[2024-01-13] MEDS: aspirin 81 mg EC Tablet PO (08:00)
[2024-01-13] MEDS: lidocaine 5% Patch 1 PATCH TOPICAL (08:01)
[2024-01-13] MEDS: amlodipine 10 mg Tablet PO (08:01)
[2024-01-13] MEDS: insulin lispro 100 unit/1 mL SUBCUT (08:01)
--- NOTE | 2024-01-13 09:00 | PM.DCS ---
Discharge Providers Date of Admission: 01/07/24 00:38 Date of Discharge: January 13, 2024 Attending Provider at Admission: Bassam Driver MD Attending Provider at Discharge: Bassam Driver MD Diagnoses at Discharge Discharge Diagnosis (1) Acute encephalopathy: Status: Acute (2) UTI (urinary tract infection): Status: Acute (3) Left leg pain: Status: Acute (4) Chronic suprapubic catheter: Status: Acute (5) History of DVT (deep vein thrombosis): Status: Acute (6) DM II (diabetes mellitus, type II), controlled: Status: Acute (7) Hypertension, benign: Status: Chronic Reason for Visit Reason for Visit: [facility] Hospital Course Hospital Course Edith García is a 58 year old female with a past medical history of left lower extremity DVT, right below-knee amputation, for right foot diabetic ulcer, type 2 diabetes mellitus, history of spinal abscess status postsurgical debridement, requiring colostomy, history of suprapubic catheter, who presents to [facility] due to altered mental status, generalized fatigue and malaise. Currently patient alert to person, not to place, not to time she can follow some commands her biggest complaint is left lower extremity pain. She tells me that her left leg is hurting her. She denies any other complaints, denies any abdominal pain, no facial droop, no slurring of words, no focal weakness she moves bilateral upper and lower extremities, she has had a right BKA. I cannot get a lot of history from her except that her left leg is hurting her. Patient was admitted to [facility] for acute encephalopathy, from complicated UTI with suprapubic catheter, patient was monitored as inpatient received IV antibiotics, overall her clinical condition improved. She will be discharged on cefepime 1 g IV every 12 hours for 10 total days, PICC line in place, PICC line to be removed thereafter, follow-up with primary care provider as outpatient for consideration of chronic suppressive antibiotic therapy. Physical Exam Const: COMMON NORMALS: no acute distress and patient oriented x3 Resp: COMMON NORMALS: normal respiratory effort, No retractions, No use of accessory muscles and clear to auscultation bilaterally AUSCULTATION: clear to auscultation bilaterally Cardio: COMMON NORMALS: regular rate, regular rhythm, S1 normal heart sound present and S2 normal heart sound present RATE: regular rate RHYTHM: regular rhythm HEART SOUNDS: S1 normal heart sound present and S2 normal heart sound present GI: COMMON NORMALS: Normal to inspection, nondistended, normoactive bowel sounds present and non-tender Extremity: COMMON NORMALS: no pedal edema Neuro: COMMON NORMALS: patient oriented x3 Psych: COMMON NORMALS: mental status grossly normal Urinary Catheter Management: Suprapubic: Cath Placed During This Visit: yes Reason for Continuing Indwelling Catheter: Chronic Indwelling Urinary Catheter on Admission Urinary Catheter Date of Insertion: 01/10/24 Urinary Catheter Time of Insertion: 15:00 Discharge Data Studies Completed and Pending Completed Studies During Hospitalization Category Date Time Status CT abdomen pelvis wo con [id number] Stat Cat Scan 01/06/24 23:[address] head wo con* [id number] Stat Cat Scan 01/07/24 00:45 Completed XR chest 1V portable [id number] Stat Exams 01/06/24 21:59 [place] [id number] Stat Ultrasound 01/07/24 00:34 Completed Pending at discharge Category Date Time Status Basic Metabolic Panel AM LABS Lab 01/14/24 04:00 Ordered Basic Metabolic Panel AM LABS Lab 01/15/24 04:00 Ordered Complete Blood Count w/Auto AM LABS Lab 01/14/24 04:00 Ordered Complete Blood Count w/Auto AM LABS Lab 01/15/24 04:00 Ordered Radiology Impressions Chest X-Ray 01/06/24 21:59 IMPRESSION: No acute findings. Abdomen/Pelvis CT 01/06/24 23:53 IMPRESSION: 1. Technically limited exam with no apparent acute intra-abdominal findings. 2. Status post sigmoidectomy with left lower quadrant colostomy. No bowel obstruction. Venous Duplex 01/07/24 00:34 IMPRESSION: No evidence of DVT. Head CT 01/07/24 00:45 IMPRESSION: No acute intracranial abnormality. Laboratory Results WBC 4.25 10^3/uL (3.29-11.43) 01/13/24 05:15 RBC 3.69 10^6/uL (3.85-5.65) L 01/13/24 05:15 Hgb 10.90 g/dL (11.27-16.99) L 01/13/24 05:15 Hct 34.0 % (36-47) L 01/13/24 05:15 MCV 92.1 fl (85-98) 01/13/24 05:15 MCH 29.5 pg (27-33) 01/13/24 05:15 MCHC 32.1 g/dL (30-55) 01/13/24 05:15 RDW 14.6 % (12.1-15.1) 01/13/24 05:15 Plt Count 205 10^3/cmm (157-399) 01/13/24 05:15 MPV 9.0 fL (7.4-10.4) 01/13/24 05:15 Neut % (Auto) 54.4 % 01/13/24 05:15 Lymph % (Auto) 32.5 % 01/13/24 05:15 [place] % (Auto) 12.2 % 01/13/24 05:15 Eos % (Auto) 0.2 % 01/13/24 05:15 Baso % (Auto) 0.5 % 01/13/24 05:15 Neut # (Auto) 2.31 10^3/uL (1.8-7.7) 01/13/24 05:15 Lymph # (Auto) 1.4 10^3/uL (0.8-4.8) 01/13/24 05:15 [place] # (Auto) 0.5 10^3/uL (0.2-0.9) 01/13/24 05:15 Eos # (Auto) 0.0 10^3/uL (0.0-0.8) 01/13/24 05:15 Baso # (Auto) 0.0 10^3/uL (0.0-0.1) 01/13/24 05:15 Nucleated RBC % (auto) 0 % 01/13/24 05:15 Nucleated RBCs # 0.0 /100WBC 01/13/24 05:15 PT 13.40 SECONDS (12.1-14.9) 01/06/24 22:37 INR 0.99 (0.8-1.2) 01/06/24 22:37 Sodium 140 mmol/L (136-145) 01/13/24 05:15 Potassium 3.6 mmol/L (3.5-5.1) 01/13/24 05:15 Chloride 105 mmol/L (98-107) 01/13/24 05:15 Carbon Dioxide 23 mmol/L (22-29) 01/13/24 05:15 Anion Gap 15.6 (5-19) 01/13/24 05:15 BUN 10 mg/dL (8-23) 01/13/24 05:15 Creatinine 0.8 mg/dL (0.5-0.9) 01/13/24 05:15 GFR Calculation 73.2 mL/min (90-130) L 01/13/24 05:15 Glucose 176 mg/dL (65-115) H 01/13/24 05:15 POC Glucose 196 mg/dL (70-110) H 01/13/24 06:45 Estimat Average Glucose 180 01/07/24 14:25 Hemoglobin A1c 7.9 % (4.0-6.0) H 01/07/24 14:25 Calculated Osmolality 293 mOsm/kg (285-295) 01/13/24 05:15 Lactic Acid 1.8 mmol/L (0.5-2.2) 01/07/24 01:36 Calcium 8.4 mg/dL (8.5-10.5) L 01/13/24 05:15 Magnesium 1.9 mg/dL (1.7-2.3) 01/10/24 05:09 Iron 51 ug/dL (37-145) 01/07/24 14:25 TIBC 240 mcg/dl 01/07/24 14:25 % Saturation 21.2 % (20-50) 01/07/24 14:25 Unsat Iron Binding 189 ug/dL (112-347) 01/07/24 14:25 Total Bilirubin 0.5 mg/dL (0.15-1.2) 01/12/24 02:52 AST 27 U/L (0-32) 01/12/24 02:52 ALT 23 U/L (0-33) 01/12/24 02:52 Alkaline Phosphatase 107 U/L (35-105) H 01/12/24 02:52 C-Reactive Protein 36.0 mg/L (0.0-4.9) H 01/06/24 22:37 NT-Pro-B Natriuret Pep 194 pg/mL (0-125) H 01/06/24 22:37 Total Protein 6.4 g/dL (6.6-8.7) L 01/12/24 02:52 Albumin 3.4 g/dL (3.5-5.2) L 01/12/24 02:52 Globulin 3.0 g/dL (1.3-4.6) 01/12/24 02:52 Triglycerides 247 mg/dL (0-150) H 01/08/24 02:55 Cholesterol 151 mg/dL (0-200) 01/08/24 02:55 LDL Cholesterol, Calc 66 mg/dL (50-129) 01/08/24 02:55 HDL Cholesterol 36 mg/dL (60-100) L 01/08/24 02:55 LDL/HDL Ratio 1.83 RATIO (0.00-3.22) 01/08/24 02:55 Cholesterol/HDL Ratio 4.19 mg/dL (0.0-4.40) 01/08/24 02:55 Vitamin B12 1175 pg/mL (232-1245) 01/07/24 14:25 Folate 5.3 ng/mL (4.8-37.3) 01/08/24 02:55 Procalcitonin 0.07 ng/mL (0-0.5) 01/07/24 14:25 TSH 0.83 uIU/mL (0.27-4.20) 01/07/24 14:25 Urine Color Yellow (Yellow) 01/06/24 22:37 Urine Appearance Cloudy (CLEAR) A 01/06/24 22:37 Urine pH 6.5 (5-7) 01/06/24 22:37 Ur Specific [place] 1.010 (1.005-1.030) 01/06/24 22:37 Urine Protein 1+ (Negative) H 01/06/24 22:37 Urine Glucose (UA) Norm (Normal) 01/06/24 22:37 Urine Ketones Negative (Negative) 01/06/24 22:37 Urine Blood 2+ (Negative) H 01/06/24 22:37 Urine Nitrate Positive (Negative) A 01/06/24 22:37 Urine Bilirubin Neg (Negative) 01/06/24 22:37 Urine Urobilinogen Neg mg/dL (Negative) 01/06/24 22:37 Ur Leukocyte Esterase 2+ (Negative) H 01/06/24 22:37 Urine RBC 5-10 /hpf (0-2) H 01/06/24 22:37 Urine WBC 11-20 /hpf (0-5) H 01/06/24 22:37 Ur Squamous Epith Cells 5-10 /hpf (0-5) H 01/06/24 22:37 Amorphous Sediment Not Reportable 01/06/24 22:37 Urine Bacteria 4+ /hpf (NONE) H 01/06/24 22:37 Urine Mucus 2+ /hpf 01/06/24 22:37 Vancomycin Trough 13.9 ug/mL (10-15) 01/09/24 02:39 C. difficile (PCR) Negative (Negative) 01/07/24 12:17 SARS-CoV-2 Ag (Rapid) negative (Negative) 01/13/24 06:41 Vitals Last Vital Signs Temp 98 F 01/13/24 08:00 Pulse 80 01/13/24 08:00 Resp 18 01/13/24 08:00 BP 146/78 01/13/24 08:00 Pulse Ox 95 01/13/24 08:00 O2 Del Method Room Air 01/13/24 04:00 FiO2 20 01/11/24 00:21 Discharge Plan Discharge Patient Disposition: Xfer SNF Condition: Stable Prescriptions: New quetiapine 25 mg Tablet 25 mg PO QPM 30 Days Qty: 30 0RF carvedilol 12.5 mg Tablet 12.5 mg PO BID 30 Days Qty: 60 0RF venlafaxine 150 mg Capsule,Extended Release 24hr 150 mg PO QPM 30 Days Qty: 30 0RF nortriptyline 25 mg Capsule 25 mg PO QPM 30 Days Qty: 30 0RF amlodipine 10 mg Tablet 10 mg PO DAILY 30 Days Qty: 30 0RF hydralazine 50 mg Tablet 50 mg PO TID 30 Days Qty: 90 0RF cefepime 1 gram recon soln 1 g IV Q12H 4 Days Qty: 8 0RF Continued (DME) FreeStyle [place]lette 14 Day [place] Misc See Rx Instructions .ROUTE .MEDSUPPLY Qty: 1 0RF Rx Instructions: As directed (DME) FreeStyle [place] 14 Day Sensor Kit See Rx Instructions .ROUTE .MEDSUPPLY Qty: 2 12RF Rx Instructions: As directed diclofenac sodium 1 % gel 2 g TOPICAL QID Qty: 100 0RF Rx Instructions: apply to single elbow, wrist or hand; for hand includes palm/fingers/back of hand (DME) Comfort EZ Pen [place] 33 gauge x 1/4 needle See Rx Instructions .ROUTE .MEDSUPPLY Qty: 100 2RF Rx Instructions: As directed venlafaxine 225 mg tablet extended release 24hr 225 mg PO QPM nystatin 100,000 unit/gram cream 1 applic TOPICAL BID capsaicin 0.025 % Cream 1 applic TOPICAL QID PRN (Reason: FOR PAIN) Biofreeze (menthol) 4 % Gel 1 applic TOPICAL PRN PRN (Reason: Pain) acetaminophen 325 mg Tablet 650 mg PO QID PRN (Reason: Pain) multivitamin Tablet 1 tab PO DAILY dantrolene 25 mg Capsule 25 mg PO TID polyethylene glycol 3350 [Miralax] 17 gram Powder In Packet 17 g PO BID atorvastatin 10 mg Tablet 10 mg PO QPM sennosides-docusate sodium [Senokot-S] 8.6-50 mg Tablet 1 tab-cap PO BID aspirin 81 mg Tablet,Delayed Release (Dr/Ec) 81 mg PO BID tramadol 50 mg Tablet 50 - 100 mg PO Q4H PRN (Reason: Pain) lorazepam 0.5 mg Tablet See Rx Instructions .ROUTE .COMPLEX PRN (Reason: Anxiety) Rx Instructions: 0.5 mg orally twice daily and 0.5 mg every 6 hours as needed ascorbic acid (vitamin C) [Vitamin C] 500 mg Tablet 500 mg PO TID baclofen 10 mg Tablet 10 mg PO Q6H PRN (Reason: Muscle Spasm) pantoprazole 40 mg Tablet,Delayed Release (Dr/Ec) 40 mg PO DAILY docusate sodium 100 mg Capsule 100 mg PO DAILY buspirone 15 mg Tablet 15 mg PO TID oxycodone 5 mg Tablet 5 - 10 mg PO Q4H PRN (Reason: Pain) pregabalin 25 mg Capsule 25 mg PO BID PRN (Reason: Pain) pregabalin 50 mg Capsule 50 mg PO .NOON pregabalin 100 mg Capsule 100 mg PO BID Eliquis 5 mg Tablet 5 mg PO BID Probiotic 3 billion cell Capsule 3,000 mmu cells PO BID Rx Instructions: administer with a meal insulin glargine [Lantus Solostar U-100 Insulin] 100 unit/mL (3 mL) insulin pen 5 unit SUBCUT QPM Qty: 15 0RF insulin lispro [Humalog KwikPen Insulin] 100 unit/mL insulin pen See Protocol SUBCUT TID Qty: 15 0RF Protocol: Insulin Corrective High-Dose Regimen Condition: Fingerstick Blood Glucose Dose/Route: Insulin Units Condition: 141-180 mg/dl Dose/Route: 4 units/SQ Condition: 181-220 mg/dl Dose/Route: 6 units/SQ Condition: 221-260 mg/dl Dose/Route: 8 units/SQ Condition: 261-300 mg/dl Dose/Route: 10 units/SQ Condition: 301-350 mg/dl Dose/Route: 14 units/SQ Condition: 351-400 mg/dl Dose/Route: 16 units/SQ Condition: greater than 400 mg/dl Dose/Route: 18 units/SQ bumetanide 1 mg Tablet 1 mg PO DAILY PRN (Reason: Swelling) Qty: 10 0RF Discontinued methenamine hippurate 1 gram tablet 1 g PO BID metoprolol tartrate 25 mg Tablet 25 mg PO DAILY Discharge Orders: Discharge Order (Routine); Ordered 01/13/24 Ordered By: Bassam Driver Referrals: [facility] [place] [Outside] Discharge Diet: Cardiac Discharge Activity: Resume usual activity Patient Instructions: Altered Mental Status (ED), Opioid Safety Activity Restrictions/Additional Instructions: -cefepime 1gram q12h stop date -remove picc thereafter Discharge Attestations Time Spent in Discharge Care*: greater than 30 min Status at Discharge: Cognitive status at discharge: cognitively intact, Behavioral status at discharge: cooperative, Quality Metrics Clinical Quality Measures [ No reported AMI, CVA or VTE this stay] Coding Level of Care Code 31517 Total time (in minutes) for Discharge: 45 Diagnoses Acute encephalopathy G93.40 UTI (urinary tract infection) N39.0 Left leg pain M79.605 Chronic suprapubic catheter Z93.59 History of DVT (deep vein thrombosis) Z86.718 DM II (diabetes mellitus, type II), controlled E11.9 Hypertension, benign I10
--- NOTE | 2024-01-13 09:33 | PC.CHAP ---
Pastoral Care Encounter/Spiritual Assessment Type of Contact [] Declined darklight inspector visit [] Patient/Family/Request visit [] Outpatient visit [] Follow-up visit [] Physician referral [] Code/Alert [x] Routine visit [] Staff referral [] Actively dying [] Patient sleeping [] Family support [] [] Out of room [] Palliative care [] [] Receiving care in room [] Pre-surgical visit [] Trauma [] Long length of stay [] ICU visit [] Other: Relational/Emotional Strength [x] Patient feels connected with others/family/visitors/staff [] Distress [] Loneliness/isolation [] Abandonment Spirituality of Patient [x] Person of Sindhu [] Attends Orthodoxy of their Sindhu [x] Believes in Prayer [] Reads Bible or Methodist materials [] There are Spiritual issues to be addressed Master Naval Parachutist Interventions [x] Prayer [x] Active listening [] Non-anxious presence [x] Spiritual/emotional support [] Crisis/trauma care [] Spiritual counseling [] Bereavement support [] Provided bereavement packet [] Provided Bible/devotional materials [] Provided toy/stuffed animal, coloring book to patient or family member [] Provided Communion [] Anointing/[place] [] Salvation [x] Completed spiritual assessment [] Other: Impact on Illness or Injury [] Angry [] Fearful [] Anxious [] Often cries [] Exhaustion [] Unable to work [] Unable to attend lutheran [] Unable to walk/stand [] Unable to read [] Unable to drive [] Unable to eat/drink [] Unable to sleep [] Unable to be with family [] Patient intubated [] Other: Summary Time spent with patient 5 min
[2024-01-13 09:48] VITALS: BP 146/78; PULSE 80; RESP 18; TEMP 36.6; O2SAT 95
== END 2024-01-13 09:49 | disposition skilled nursing facility (03) | DRG 698 ==
LOC: ER 01-07 00:50 → MEDSURG 01-07 01:36
PROVIDERS: Student in an Organized Health Care Education/Training Program; Admitting Provider Family Medicine; Emergency Provider Emergency Medicine; Visit Provider Family Medicine
DX: T83.518A Infection and inflammatory reaction due to other urinary catheter, initial encounter (principal); G92.8 Other toxic encephalopathy; G93.41 Metabolic encephalopathy; N39.0 Urinary tract infection, site not specified; B96.5 Pseudomonas (aeruginosa) (mallei) (pseudomallei) as the cause of diseases classified elsewhere; B96.1 Klebsiella pneumoniae [K. pneumoniae] as the cause of diseases classified elsewhere; Y73.8 Miscellaneous gastroenterology and urology devices associated with adverse incidents, not elsewhere classified; T50.915A Adverse effect of multiple unspecified drugs, medicaments and biological substances, initial encounter; E11.51 Type 2 diabetes mellitus with diabetic peripheral angiopathy without gangrene; E11.40 Type 2 diabetes mellitus with diabetic neuropathy, unspecified; F32.9 Major depressive disorder, single episode, unspecified; F41.1 Generalized anxiety disorder; K21.9 Gastro-esophageal reflux disease without esophagitis; E78.2 Mixed hyperlipidemia; G47.33 Obstructive sleep apnea (adult) (pediatric); M79.605 Pain in left leg; Z79.4 Long term (current) use of insulin; Z79.82 Long term (current) use of aspirin; Z79.01 Long term (current) use of anticoagulants; Z93.3 Colostomy status; Z89.511 Acquired absence of right leg below knee; Z86.718 Personal history of other venous thrombosis and embolism; Z87.440 Personal history of urinary (tract) infections; Z11.52 Encounter for screening for COVID-19
CPT/HCPCS: 36415; 36416; 36569; 36592; 51702; 70450; 71045; 74176; 80048; 80053; 80061; 80202; 81001; 82607; 82746; 82962; 83036; 83540; 83550; 83605; 83735; 83880; 84145; 84443; 85025; 85610; 86140; 87040; 87077; 87086; 87186; 87426; 87493; 92523; 92610; 93005; 93971; 94660; 94664; 96365; 96367; 96372; 96375; 99285; C1751; J0360; J0692; J1815; J2270; J2470; J2543; J3370; J3475; J7030; J7050

== ENCOUNTER 2024-05-21 03:57 | Emergency (ER) | payer MEDICARE, SELFPAY ==
[2024-05-21 03:57] VITALS: BP 184/74; PULSE 65; RESP 18; TEMP 36.4; O2SAT 94; BMI 37.0
--- NOTE | 2024-05-21 04:31 | W.ED.GENADLT ---
HPI - General Adult General: Chief complaint: General Medical Stated complaint: Cath Issues Time Seen by Provider: 05/21/24 04:03 History of Present Illness: Patient presents to the ER for suprapubic catheter replacement. Patient says she has had it for multiple years and is gets changed every month. He was changed last week. It was dislodged tonight for an unknown amount of time. Nursing at the facility tried to replace it and were unsuccessful. Related Data Home Medications Medication Instructions Recorded Confirmed acetaminophen 325 mg tablet 650 mg PO QID PRN Pain 01/10/23 01/07/24 apixaban 5 mg tablet (Eliquis) 5 mg PO BID 01/10/23 01/07/24 ascorbic acid (vitamin C) 500 mg 500 mg PO TID 01/10/23 01/07/24 tablet (Vitamin C) aspirin 81 mg tablet,delayed 81 mg PO BID 01/10/23 01/07/24 release atorvastatin 10 mg tablet 10 mg PO QPM 01/10/23 01/07/24 baclofen 10 mg tablet 10 mg PO Q6H PRN Muscle Spasm 01/10/23 01/07/24 buspirone 15 mg tablet 15 mg PO TID 01/10/23 01/07/24 dantrolene 25 mg capsule 25 mg PO TID 01/10/23 01/07/24 docusate sodium 100 mg capsule 100 mg PO DAILY 01/10/23 01/07/24 lactobacillus combination no.4 3 3,000 mmu cells PO BID 01/10/23 01/07/24 billion cell capsule (Probiotic) lorazepam 0.5 mg tablet See Rx Instructions .Route 01/10/23 01/07/24 .COMPLEX PRN Anxiety multivitamin 1 tab PO DAILY 01/10/23 01/07/24 oxycodone 5 mg tablet 5 - 10 mg PO Q4H PRN Pain 01/10/23 01/07/24 pantoprazole 40 mg tablet,delayed 40 mg PO DAILY 01/10/23 01/07/24 release polyethylene glycol 3350 17 gram 17 g PO BID 01/10/23 01/07/24 oral powder packet (Miralax) pregabalin 100 mg capsule 100 mg PO BID 01/10/23 01/07/24 pregabalin 25 mg capsule 25 mg PO BID PRN Pain 01/10/23 01/07/24 pregabalin 50 mg capsule 50 mg PO .NOON 01/10/23 01/07/24 sennosides 8.6 mg-docusate sodium 1 tab-cap PO BID 01/10/23 01/07/24 50 mg tablet (Senokot-S) tramadol 50 mg tablet 50 - 100 mg PO Q4H PRN Pain 01/10/23 01/07/24 capsaicin 0.025 % topical cream 1 applic topical QID PRN FOR PAIN 01/07/24 01/07/24 menthol 4 % topical gel (Biofreeze 1 applic topical PRN PRN Pain 01/07/24 01/07/24 (menthol)) nystatin 100,000 unit/gram topical 1 applic topical BID 01/07/24 01/07/24 cream venlafaxine 225 mg tablet,extended 225 mg PO QPM 01/07/24 01/07/24 release 24 hr Previous Rx's Medication Instructions Recorded diclofenac sodium 1 % topical gel 2 g topical QID #100 grams 10/13/20 flash glucose scanning reader #1 ea 12/18/21 (FreeStyle Colette 14 Day Reserve) flash glucose sensor (FreeStyle #2 ea 12/18/21 Colette 14 Day Sensor kit) pen needle, diabetic 33 gauge x #100 ea 12/27/2104/24 (Comfort EZ Pen [place]) bumetanide 1 mg tablet 1 mg PO DAILY PRN Swelling #10 tabs 01/20/23 insulin glargine 100 unit/mL (3 5 unit (0.05 mL) SUBCUT QPM #15 mL 01/20/23 mL) subcutaneous pen (Lantus Solostar U-100 Insulin) insulin lispro 100 unit/mL See Protocol SUBCUT TID #15 mL 01/20/23 subcutaneous pen (Humalog KwikPen (U-100) Insulin) Allergies Allergy/AdvReac Type Severity Reaction Status Date / Time lisinopril Allergy Mild ADR-Swelling Verified 01/10/23 11:01 of the Eye codeine Allergy ALGY-Hives Verified 01/10/23 11:01 Sulfa (Sulfonamide Allergy Unknown Verified 01/06/24 22:09 Antibiotics) Review of Systems General: Reports: 10 or more systems reviewed and unremarkable except in HPI and below PFSH ED PFSH: Medical History 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 History of DVT (deep vein thrombosis) Peripheral edema PVD (peripheral vascular disease) Cellulitis of foot associated with diabetes mellitus Onychomycosis Major depression CHF (congestive heart failure) Allergic rhinitis Irregular heart beat Arthralgia Large platelets ABDON (generalized anxiety disorder) GERD (gastroesophageal reflux disease) Type 2 diabetes mellitus without complication, without long-term current use of insulin Bydureon switched to glipizide due to cost Hypertension, benign Hyperlipemia, mixed Neuropathy in diabetes Sleep apnea, obstructive Surgical History H/O laminectomy History of suprapubic catheter History of colostomy Hx of cholecystectomy H/O: hysterectomy Family History Father Heart disease Family/Other Cancer aunt-breast cancer Other Diabetes Social History Smoking and tobacco/nicotine status: never used tobacco/nicotine Alcohol intake: never Substance/Drug Use: never Current gender identity: Female Female Reproductive History: Spontaneous abortions: No Physical Exam Const: COMMON NORMALS: no acute distress, average body habitus, patient oriented x3, no limitations, healthy appearing, alert and well nourished HENMT: COMMON NORMALS: normocephalic, atraumatic, hearing grossly normal bilaterally, external ears normal, Normal external nose present and moist oral mucous membranes HEAD & SCALP: normocephalic and atraumatic NOSE: Normal external nose present EXTERNAL EAR: Yes external ears normal Neck/C-Spine: COMMON NORMALS: no JVD Chest: COMMONS NORMALS: normal inspection of the chest and normal palpation of entire chest wall Resp: COMMON NORMALS: normal respiratory effort, No retractions, No use of accessory muscles and clear to auscultation bilaterally AUSCULTATION: clear to auscultation bilaterally Cardio: COMMON NORMALS: no JVD, regular rate, regular rhythm, S1 normal heart sound present, S2 normal heart sound present, No gallops present (Cardio), No clicks present (Cardio), No murmurs present (Cardio) and No rub (Cardio) RATE: regular rate RHYTHM: regular rhythm HEART SOUNDS: S1 normal heart sound present and S2 normal heart sound present GI: COMMON NORMALS: Normal to inspection, nondistended, normoactive bowel sounds present, Soft to palpation, non-tender, No hepatosplenomegaly present and no masses PALPATION: Yes Soft to palpation and Yes No hepatosplenomegaly present OTHER: Suprapubic catheter opening noted, multiple attempts were attempted to pass multiple sizes of catheters through the opening into the bladder. All of them would insert about 1 inch but we could not pass it through the bladder wall. Neuro: COMMON NORMALS: patient oriented x3 SENSORIUM/ORIENTATION: Yes alert Course Vital Signs: Vital signs: Vital Signs Temperature 97.6 F 05/21/24 03:57 Pulse Rate 65 05/21/24 03:57 Respiratory Rate 18 05/21/24 03:57 Blood Pressure 184/74 05/21/24 03:57 Pulse Oximetry 94 05/21/24 03:57 Oxygen Delivery Me thod Room Air 05/21/24 03:57 MDM - General Adult Medical Decision Making Discussed case with the [facility] urologist on-call. He said if we cannot get a suprapubic catheter placed back even a very small and such as 8-10 [place] then go ahead and place a urethral catheter in place and have her follow-up with Dr. Muir which is her normal urologist on an outpatient basis. Medical Records I reviewed the patient's medical records. Lab Data I reviewed the patient's lab results. No radiology studies performed this visit Discharge Plan Discharge Patient Disposition: Home Clinical Impression: Malfunction of indwelling urinary catheter Qualifiers: Encounter type: initial encounter Qualified Code(s): T83.011A - Breakdown (mechanical) of indwelling urethral catheter, initial encounter Condition: Stable Prescriptions: No Action (DME) FreeStyle Colette 14 Day Reserve Misc See Rx Instructions .ROUTE .MEDSUPPLY Qty: 1 0RF Rx Instructions: As directed (DME) FreeStyle Colette 14 Day Sensor Kit See Rx Instructions .ROUTE .MEDSUPPLY Qty: 2 12RF Rx Instructions: As directed diclofenac sodium 1 % gel 2 g TOPICAL QID Qty: 100 0RF Rx Instructions: apply to single elbow, wrist or hand; for hand includes palm/fingers/back of hand (DME) Comfort EZ Pen [place] 33 gauge x 1/4 needle See Rx Instructions .ROUTE .MEDSUPPLY Qty: 100 2RF Rx Instructions: As directed venlafaxine 225 mg tablet extended release 24hr 225 mg PO QPM nystatin 100,000 unit/gram cream 1 applic TOPICAL BID capsaicin 0.025 % Cream 1 applic TOPICAL QID PRN (Reason: FOR PAIN) Biofreeze (menthol) 4 % Gel 1 applic TOPICAL PRN PRN (Reason: Pain) acetaminophen 325 mg Tablet 650 mg PO QID PRN (Reason: Pain) multivitamin Tablet 1 tab PO DAILY dantrolene 25 mg Capsule 25 mg PO TID polyethylene glycol 3350 [Miralax] 17 gram Powder In Packet 17 g PO BID atorvastatin 10 mg Tablet 10 mg PO QPM sennosides-docusate sodium [Senokot-S] 8.6-50 mg Tablet 1 tab-cap PO BID aspirin 81 mg Tablet,Delayed Release (Dr/Ec) 81 mg PO BID tramadol 50 mg Tablet 50 - 100 mg PO Q4H PRN (Reason: Pain) lorazepam 0.5 mg Tablet See Rx Instructions .ROUTE .COMPLEX PRN (Reason: Anxiety) Rx Instructions: 0.5 mg orally twice daily and 0.5 mg every 6 hours as needed ascorbic acid (vitamin C) [Vitamin C] 500 mg Tablet 500 mg PO TID baclofen 10 mg Tablet 10 mg PO Q6H PRN (Reason: Muscle Spasm) pantoprazole 40 mg Tablet,Delayed Release (Dr/Ec) 40 mg PO DAILY docusate sodium 100 mg Capsule 100 mg PO DAILY buspirone 15 mg Tablet 15 mg PO TID oxycodone 5 mg Tablet 5 - 10 mg PO Q4H PRN (Reason: Pain) pregabalin 25 mg Capsule 25 mg PO BID PRN (Reason: Pain) pregabalin 50 mg Capsule 50 mg PO .NOON pregabalin 100 mg Capsule 100 mg PO BID Eliquis 5 mg Tablet 5 mg PO BID Probiotic 3 billion cell Capsule 3,000 mmu cells PO BID Rx Instructions: administer with a meal insulin glargine [Lantus Solostar U-100 Insulin] 100 unit/mL (3 mL) insulin pen 5 unit SUBCUT QPM Qty: 15 0RF insulin lispro [Humalog KwikPen Insulin] 100 unit/mL insulin pen See Protocol SUBCUT TID Qty: 15 0RF Protocol: Insulin Corrective High-Dose Regimen Condition: Fingerstick Blood Glucose Dose/Route: Insulin Units Condition: 141-180 mg/dl Dose/Route: 4 units/SQ Condition: 181-220 mg/dl Dose/Route: 6 units/SQ Condition: 221-260 mg/dl Dose/Route: 8 units/SQ Condition: 261-300 mg/dl Dose/Route: 10 units/SQ Condition: 301-350 mg/dl Dose/Route: 14 units/SQ Condition: 351-400 mg/dl Dose/Route: 16 units/SQ Condition: greater than 400 mg/dl Dose/Route: 18 units/SQ bumetanide 1 mg Tablet 1 mg PO DAILY PRN (Reason: Swelling) Qty: 10 0RF Discharge Orders: Discharge ED (Routine); Ordered 05/21/24 Ordered By: Aung Mendoza Activity Restrictions/Additional Instructions: Please call Dr. Muir's office during normal business hours today and inform him of your suprapubic catheter dislodgment. You may need to follow-up with him on an outpatient basis. Coding Level of Care Code ED Material Control Specialist for Kenneth Carrero
[2024-05-21 06:14] VITALS: BP 161/84; PULSE 67; O2SAT 94
[2024-05-21 06:42] VITALS: BP 168/85; PULSE 64; O2SAT 91
--- NOTE | 2024-05-21 06:42 | PC.NURSE ---
16F catheter placed in urethra due to inability to replace subrapubic catheter per Dr Brown order.
--- NOTE | 2024-05-21 07:53 | PC.NURSE ---
report given to [facility] @[phone]
[2024-05-21 09:10] VITALS: BP 182/97; PULSE 84; O2SAT 92
--- NOTE | 2024-05-21 09:12 | PC.NURSE ---
pt report given to [facility] nurse, no further questions at end of report.
--- NOTE | 2024-05-21 09:16 | PC.NURSE ---
per [facility], pt does not have prosthetic or special wheelchair ; therefore making her bedbound
--- NOTE | 2024-05-21 10:35 | PC.NURSE ---
report given to [facility] @[phone] no further questions.
[2024-05-21 10:38] VITALS: BP 180/80; PULSE 81; O2SAT 95
== END 2024-05-21 10:54 | disposition home or self-care (01) ==
PROVIDERS: Emergency Provider Emergency Medicine
DX: T83.011A Breakdown (mechanical) of indwelling urethral catheter, initial encounter (principal); X58.XXXA Exposure to other specified factors, initial encounter; Z79.82 Long term (current) use of aspirin; Z79.4 Long term (current) use of insulin; E11.9 Type 2 diabetes mellitus without complications; I11.0 Hypertensive heart disease with heart failure; I50.9 Heart failure, unspecified
CPT/HCPCS: 99283

== ENCOUNTER 2024-12-13 15:10 | Emergency (ER) | payer MEDICARE, BC, SELFPAY ==
--- OUTSIDE RECORDS SUMMARY | 2022-07-11 03:45 | XMS_ITS | Continuity of Care Document ---
Author Organization [facility] Address [address] [place] [phone] Phone Care Team Providers Care Dog Beautician Name Role Phone Audubon Mark VITAL Unavailable Unavailable Allergies, Adverse Reactions, Alerts Substance Reaction Status Criticality codeine <Not Supplied> (Unknown) Active No Information lisinopril <Not Supplied> (Unknown) Active No Information Medications Medication Instructions Dosage Effective Dates (start - stop) Status Comments Eliquis 5 mg tablet Take 1 tablet (5 mg total) by mouth 2 (two) times a day Do not start before July 12, 2022.. Last dose 07-07-22 per [facility] staff - Active buspirone 15 mg tablet Take 1 tablet (15 mg total) by mouth 3 (three) times a day. - Active magnesium oxide 400 mg (241.3 mg magnesium) tablet Take 1 tablet (400 mg total) by mouth 4 (four) times a day (before meals and nightly). - Active metoprolol tartrate 25 mg tablet Take 1 tablet (25 mg total) by mouth 2 (two) times a day. - Active nortriptyline 25 mg capsule Take 1 capsule (25 mg total) by mouth nightly. - Active pregabalin 50 mg capsule Take 1 capsule (50 mg total) by mouth 2 (two) times a day. - Active celecoxib 100 mg capsule Take 1 capsule (100 mg total) by mouth 2 (two) times a day. - Active Oxaydo 5 mg tablet,oral ONLY (not feeding tubes) Take 1 tablet (5 mg total) by mouth 2 (two) times a day. - Active glimepiride 2 mg tablet Take 1 tablet (2 mg total) by mouth daily before breakfast. - Active Fiber (calcium polycarbophil) 625 mg tablet Take 2 tablets (1,250 mg total) by mouth 2 (two) times a day. - Active aspirin 81 mg tablet,delayed release Take 1 tablet (81 mg total) by mouth 2 (two) times a day. Last dose 07-03-22 per [facility] staff - Active atorvastatin 10 mg tablet Take 1 tablet (10 mg total) by mouth nightly. - Active pantoprazole 40 mg tablet,delayed release Take 1 tablet (40 mg total) by mouth daily. - Active venlafaxine 100 mg tablet Take 1 tablet (100 mg total) by mouth daily. - Active montelukast 10 mg tablet Take 1 tablet ( 10 mg total) by mouth nightly. - Active bumetanide 1 mg tablet Take 1 tablet (1 mg total) by mouth daily. - Active cyclobenzaprine 10 mg tablet Take 1 tablet (10 mg total) by mouth at bedtime. - Active quetiapine 25 mg tablet Take 1 tablet (2 5 mg total) by mouth nightly. - Active acetaminophen 500 mg tablet Take 2 tablets (1,000 mg total) by mouth every 8 (eight) hours as needed for mild pain or fever. - Active Senokot-S 8.6 mg-50 mg tablet Take 1 tablet by mouth 2 (two) times a day as needed for constipation. - Active tizanidine 4 mg tablet Take 1 tablet (4 mg total) by mouth 3 (three) times a day as needed for muscle spasms. - Active Diaper Rash 40 % topical ointment Apply 1 application topically 2 (two) times a day as needed. - Active fluticasone propionate 50 mcg/actuation nasal spray,suspension Administer 1 spray into each nostril if needed for rhinitis. - Active diclofenac 1 % topical gel Apply 2 g topically every 2 (two) hours as needed for muscle/joint pain. Use dosing card provided to measure dose. - Active ondansetron 4 mg disintegrating tablet Take 1 tablet (4 mg total) by mouth 4 (four) times a day as needed for nausea or vomiting. 4mg or 8 mg - Active loperamide 2 mg capsule Take 1 capsule ( 2 mg total) by mouth every 4 (four) hours as needed for diarrhea. - Active tramadol 50 mg tablet Take 1 tablet (50 mg total) by mouth every 4 (four) hours as needed for moderate pain. 50 mg to 100 mg - Active oxycodone 5 mg tablet Take 1 tablet (5 m g total) by mouth every 4 (four) hours as needed for moderate pain. 5mg-10mg - Active lorazepam 0.5 mg tablet Take 1 tablet (0 .5 mg total) by mouth every 6 (six) hours as needed for anxiety. - Active baclofen 10 mg tablet Take 1 tablet (10 mg total) by mouth every 6 (six) hours as needed for muscle spasms. - Active simethicone 80 mg chewable tablet Take 1 tablet (80 mg total) by mouth every 12 (twelve) hours as needed for flatulence. - Active lidocaine 4 % topical patch Apply 1 patch topically daily. As needed - Active docusate sodium 100 mg capsule Take 1 capsule (100 mg total) by mouth 2 (two) times a day. - Active oxycodone 10 mg tablet Take 1 tablet (10 mg total) by mouth every 4 (four) hours. - Active Procedures Procedure Date SP CATH PLCMT INITIAL / DRAIN BL W/CATH INSERTION INITIAL HOSPITAL CARE Advance Directives Directive Yes / No Effective Date File Name No Information Encounters Encounter Description Practice Location Reason(s) For Visit Diagnoses Date Provider [facility], [address] [place] [address], [id number], tel:[phone] [place] [address] Urology No Information 2022 Michel Flores. [address] [place] [address], [id number], [place]. tel:[phone] [place] [address] Urology, [address] [place] [address], [id number], tel:[phone] [place] [address] No Information 2022 Michel Flores. [address] [place] [address], [id number], [place]. tel:[phone] [facility], [address] [place] [address], [id number], tel:[phone] [facility] Neuromuscular dysfunction of bladder, unspecified 2022 Darius Connolly. [address] [place] [address], [id number], [place]. tel:[phone] INITIAL HOSPITAL CARE [facility], [address] [facility], [place], [place], [id number], [place] tel:[phone] [facility] No Information 2022 Michel Flores. [address] [place] [address], [place], [id number], [place]. tel:[phone] Family History Family Member Type Diagnosis Age At Onset No Information Payers Payer name Insurance type Covered alliance party ID Tanya benavides(s) Sissy Landon [facility] [id number] Social History Type Description Quantity Date Captured Comments Alcohol Use Details Unknown Caffeine Use Details Unknown Tobacco Use Status No Information Smoking Status Tobacco smoking cons umption unknown Sex Female Chief Complaint And Reason For Visit No Information History Of Present Illness Encounter Date Complaint History Of Prese nt Illness No Information Instructions Date Instruction Additional Infor mation No Information Assessments Type Assessment Date No Information
--- OUTSIDE RECORDS SUMMARY | 2024-02-10 23:59 | XMS_ITS | Continuity of Care Document ---
Author Name [facility] Address [address] [place] [address] Organization [facility] Care Team Providers Care Wallpaper Installer Name Role Phone [facility] Unavailable Unavailable Allergies, Adverse Reactions, Alerts Substance Category Reaction Severity Reaction type Status Date Reported Comments Source codeine<sup >1</sup> Assertion Drug allergy Active unknown [facility] hydrochloro thiazide-li sinopril<montano p>2</sup> Assertion Swelling Severe Drug allergy Active severe swelling of entire body [facility] Consultation Notes Results Value Date Source Phys Med and Rehab Clinic Note Chief Com plaint SCI follow up History of Present Illness History and records reviewed. Edith Strange is a 58-year-old female who presents for follow up. She presents with her counter caser, who contributes to the history. I last saw her on 07/23/23. Notes from that visit are below. - SCI/Impaired Mobility and ADLs: Continue therapy at SNF. Home modifications including driveway paving, stove, sink and cabinet modifications have all been ordered as mentioned above. These are all medically necessary for the reasons listed above. L AFO ordered. This is medically necessary to prevent injury and other complications that could lead to . - Neurogenic Bladder: Continue SPC and following with Urology. - Neurogenic Bowel: Continue ostomy. Patient will need outpatient follow up for her ostomy after discharging from SNF. - Chronic Pain: Continue current medications. - R BKA: Continue rehab and following with Dr. Fields. - R Greater Trochanteric Bursitis: Pool therapy ordered. [1] In December 2021, she sustained a R ankle fracture (already diagnosed with Charcot foot). This R ankle and foot became repeatedly infected, with resulted in osteomyelitis and a R BKA. Post-op course was complicated by T2-L1 discitis and osteomyelitis and abscesses, causing what is documented as cauda equina syndrome. She underwent T12-L? decompression and completed a course of antibiotics. She was discharged home. The next day, she fell. An MRI was done on 07/22/22 and showed a progression of an L1 burst fracture. She underwent T11-L3 fusion and instrument on 08/22/22. This post-op course was unremarkable. After surgery, she was sent to [facility] for rehab. After [facility], she was sent to [facility], a post-acute facility. She was discharged home from there on 01/17/23 reportedly able to walk 350' feet with a walker. Unfortunately, she fell again while trying to pull up her pants after using the bathroom. Her foot came partially out her shoe and caused her to fall. She had to go back to the hospital. She was discharged from the hospital to a SNF in [place]. She is still at the SNF because her home is not accessible. Current Medical Issues/Management: - SCI: Patient reports weakness of BLE. She has chronic numbness in her LLE beginning about mid-cooper. She denies any new weakness or numbness. She does feel that her strength is improving, and that she is making progress in therapy. - Neurogenic Bowel: Managed with ostomy. - Neurogenic Bladder: Managed with a SPC. She does have a urologist. She had a UTI about a month ago and had to be admitted to the hospital. - Spasticity: Patient reports having a lot of muscle spasms in her left leg and foot. She takes baclofen 10mg QID, which she says helps. - Skin: No pressure injuries. All incisions are healed. - Pain: Patient has chronic L shoulder, leg and foot pain and L knee pain. She takes oxycodone and Tramadol for pain as well as Tylenol, Voltaren Gel, and capsaicin. She also reports R hip pain. Her hip was x-rayed and showed arthritis. She believes the pain is due to bursitis, which she has had before. - Mental Health: Patient struggles with anxiety and depression and takes multiple medications for this. She was followed by Psychology in [facility]. - R BKA: Seen by Dr. Fields, her surgeon. She does wear a prosthesis. Current Therapy: Patient is receiving therapy at her SNF. She has been doing pool therapy and making a lot of progress with regard to LE strength, balance, and mobility. She recently walked 1500 total with a walker in PT. Current DME: - Group 3 PWC with tilt, recline, and elevating leg rests. - Walker-- used in therapy and to transfer - L AFO Living Situation: Patient lives at home alone. She is unable to be at home right now because her home is not accessible. She reports that worker's comp is working on this. She has a ramp that is usable in the front of her home. She needs the following modifications in order to be able to live in her home safely: - Her driveway needs to be paved so that she can use her PWC on it as well as for increased safety when walking in the future. Currently, she cannot use her PWC on her driveway now, she would tip over or the chair would get stuck. - In her kitchen, she needs a stovetop and a sink that have been adapted for her to be able to get underneath it with a wheelchair. That way, she can prepare meals independently. - Her oven needs to be a pullout/ drawer oven in order for her to be able to bake/cook without being burned. - Her lower cabinets need to be the pullout style in order that she can access the back of the cabinet without falling. * Patient reports that she was told that these kitchen modifications would not be approved. She does need them. They are medically necessary for the reasons mentioned above. Current Level of Function: Independent with PWC mobility. Transfers via stand-pivot. She is independent with ADLs, including bowel and bladder management. She was able too walk 700' with PT recently. This was broken up into 3 sections, and she was using a walker. Prior Level of Function: Prior to R foot fracture, she was independent with mobility and ADLs. Prior to her most recent fall, she was using her walker to ambulate. Review of Systems A full, 14-point ROS was performed. Pertinent positives and negatives are mentioned in the HPI. ROS was otherwise negative. Physical Exam Vitals and Measurements Vitals reviewed. See nursing documentation. Gen: up in PWC, NAD HEENT: normocephalic, atraumatic Heart: RRR no m/r/g Lungs: CTAB, no IWOB on room air Abdomen: non-tender, non-distended, bowel sounds present, ostomy present Extremities: warm and well perfused, no c/c/e observed in BUE or LLE Skin: no rashes or sores visible : SPC draining light yellow urine MSK: no contractures, pain with external rotation and flexion of R hip, bursa TTP Neuro: - Sensation: intact to LT to mid-cooper on the L - Strength: * BUE 5/5 in myotomes C5-T1 * R HF 2/5 L HF 5/5 * R KE 4/5 L KE 5/5 * R ADF N/A L ADF 5/5 * R GTE N/A L GTE 5/5 * R APF N/A L APF 5/5 Assessment/Plan Edith Strange is a 57-year-old female with incomplete paraplegia, L1 AIS D SCI, cauda equina syndrome neurogenic bowel and bladder, R BKA, chronic pain, R greater trochanteric bursitis and impaired mobility and ADLs. - SCI/Impaired Mobility and ADLs: Continue therapy at SNF. - Neurogenic Bladder: Continue SPC and following with Urology. I recommended she call her urologist to let him know that she was recently admitted for a UTI. - Neurogenic Bowel: Continue ostomy. Patient will need outpatient follow up for her ostomy after discharging from SNF. - Chronic Pain: Continue current medications. - R BKA: Continue rehab and following with Dr. Fields. - R Greater Trochanteric Bursitis: Pool therapy ordered. - Follow up in 1 year or sooner if needed. Devonte Chou DO This patient has a serious and chronic condition that requires ongoing care due to complexity. This care includes but is not limited to education, developing and working toward therapeutic goals, obtaining access to resources, and collaborating with the patient and care team. I spent a total of 19 minutes reviewing the patient's history (separately obtained and then confirmed by the patient and caregiver), performing the physical exam, educating the patient and caregiver, placing orders, and documenting in the patient's medical record. Problem List/Past Medical History Procedure/Surgical History Medications Allergies hydrochlorothiazide-lisinopril(Sever e) Swelling codeine Social History Smoking Status Never smoker Family History Immunizations Health Maintenance Lab Results Diagnostic Results Visit Information Attending Physician: Devonte Chou DO Visit Date: 01/21/2024 02/10/2024 Vital Signs Vital Sign Value Date Comments Source Temperature (Celsius) 36.9 Keiko 02/10/2024 18:49:00 [facility] Heart Rate 73 bpm 02/10/2024 18:49:00 [facility] SBP NIBP 143 mm[Hg] 02/10/2024 18:49:00 [facility] DBP NIBP 78 mm[Hg] 02/10/2024 18:49:00 [facility] Encounters Location Location Details Encounter Type Encounter Number Reason For Visit Attending Provider ADM Date DC Date Status Source [facility] [id number] Devonte Chou 02/09 18:43 :13 02/10 04:59 :59 [facility] Social History Social History Date Source No data available for this section 02/11/2024 [facility]
[2024-12-13] VITALS (23 sets, daily range): BP systolic 130–190; BP diastolic 81–104; PULSE 71–88; RESP 12–24; TEMP 36.7; O2SAT 90–97
--- NOTE | 2024-12-13 15:17 | ECG_ITS ---
[facility] [facility]: 2024[facility]12[facility]13 Pat Name: Edith García Department: Room: Gender: Female Creative Manager: : 1965 Requested By: Cora Rose Order Number: [id number] Phillip MD: Jaime Pedroza M.D. Measurements Intervals [place] Rate: 71 P: 35 IN: 188 QRS: -68 QRSD: 116 T: 80 QT: 415 QTc: 451 Interpretive Statements SINUS RHYTHM LEFT ANTERIOR FASCICULAR BLOCK [QRS AXIS <= -45, QR IN I, RS IN II] LEFT VENTRICULAR HYPERTROPHY AND ST-T CHANGE [VOLTAGE CRITERIA PLUS ST/T ABNORMALITY] ANTEROLATERAL MYOCARDIAL INFARCTION , OF INDETERMINATE AGE [40+ ms Q WAVE IN I/aVL/V3-V6] Compared to ECG 01/06/2024 22:06:03 Left anterior fascicular block now present Ectopic atrial rhythm no longer present ST (T wave) deviation still present Myocardial infarct finding still present Electronically Signed On 12-14-2024 08:07:01 CDT by Jaime Pedroza M.D. [email or web address]
--- NOTE | 2024-12-13 15:17 | CTR_ITS ---
PROCEDURE INFORMATION: Exam: CT Head Without Contrast Exam date and time: 12/13/2024 3:42 PM Age: 59 years old Clinical indication: Stroke-like symptoms; Altered mental status/memory loss; Additional info: Symptoms of acute stroke TECHNIQUE: Imaging protocol: Computed tomography of the head without contrast. Radiation optimization: All CT scans at this facility use at least one of these dose optimization techniques: automated exposure control; mA and/or kV adjustment per patient size (includes targeted exams where dose is matched to clinical indication); or iterative reconstruction. Other technique: STROKE PROTOCOL was implemented. COMPARISON: CT head wo con* [id number] 01/07/2024 1:54 AM RADIATION DOSE METRICS: Total DLP (mGy-cm): 1151.99 FINDINGS: Brain: Since the previous there is increased density in the M1 segment of the right MCA on series 5, image 18 which may be related to thrombus. There is no acute infarct present on CT. No acute intracranial hemorrhage. Mild involutional changes of the brain are similar. Cerebral ventricles: No significant ventriculomegaly. Paranasal sinuses: Scattered paranasal sinus mucosal thickening, without air-fluid level present. Mastoid air cells: Mastoid air cells are well-aerated. Orbital cavities: Visualized portions of the orbits are unremarkable. Bones: No acute osseous abnormality. Soft tissues: Soft tissues are unremarkable as visualized. CT/CT head thrombolytic 80103 IMPRESSION: There is increased density in the M1 segment of the right MCA which is new since the previous study suspicious for possible thrombus given history. CTA recommended for follow-up. ASSESSMENT: ASPECTS ([place] Stroke Program Early CT Score) is 10.
--- NOTE | 2024-12-13 15:24 | W.ED.AMS ---
HPI - Altered Mental Status General: Chief Complaint: Altered Mental Status Stated Complaint: ams Time Seen by Provider: 12/13/24 15:14 History of Present Illness: 59-year-old female with a history of right BKA, morbid obesity, DVT, chronic anticoagulation on Eliquis, type 2 diabetes, peripheral vascular disease, depression, congestive heart failure, hypertension, hyperlipidemia and neuropathy who presents to the emergency room by ambulance from [facility] with altered mental status. She was alert and oriented this morning. Apparently she left the [facility]. She is there for rehabilitation. Apparently she had gone back to her home and when she arrived back at the [facility] she was naked and very confused. She has no focal motor deficits. She follows commands and answer some questions but cannot tell me her name at this point. No slurred speech. No facial droop. EMS says there were a lot of empty medicine bottles at her home. She denies any remembrance of overdosing. Related Data Home Medications ?Medication ?Instructions ?Recorded ?Confirmed acetaminophen 325 mg tablet 650 mg PO QID PRN Pain 01/10/23 11/08/24 apixaban 5 mg tablet (Eliquis) 5 mg PO BID 01/10/23 11/08/24 ascorbic acid (vitamin C) 500 mg 500 mg PO TID 01/10/23 11/08/24 tablet (Vitamin C) aspirin 81 mg tablet,delayed 81 mg PO BID 01/10/23 11/08/24 release atorvastatin 10 mg tablet 10 mg PO QPM 01/10/23 11/08/24 baclofen 10 mg tablet 10 mg PO Q6H PRN Muscle Spasm 01/10/23 11/08/24 buspirone 15 mg tablet 15 mg PO TID 01/10/23 11/08/24 dantrolene 25 mg capsule 25 mg PO TID 01/10/23 11/08/24 docusate sodium 100 mg capsule 100 mg PO DAILY 01/10/23 11/08/24 lactobacillus combination no.4 3 3,000 mmu cells PO BID 01/10/23 11/08/24 billion cell capsule (Probiotic) lorazepam 0.5 mg tablet See Rx Instructions .Route 01/10/23 11/08/24 .COMPLEX PRN Anxiety multivitamin 1 tab PO DAILY 01/10/23 11/08/24 oxycodone 5 mg tablet 5 - 10 mg PO Q4H PRN Pain 01/10/23 11/08/24 pantoprazole 40 mg tablet,delayed 40 mg PO DAILY 01/10/23 11/08/24 release pregabalin 100 mg capsule 100 mg PO BID 01/10/23 11/08/24 pregabalin 25 mg capsule 25 mg PO BID PRN Pain 01/10/23 11/08/24 sennosides 8.6 mg-docusate sodium 1 tab-cap PO BID 01/10/23 11/08/24 50 mg tablet (Senokot-S) capsaicin 0.025 % topical cream 1 applic topical QID PRN FOR PAIN 01/07/24 11/08/24 menthol 4 % topical gel (Biofreeze 1 applic topical PRN PRN Pain 01/07/24 11/08/24 (menthol)) nystatin 100,000 unit/gram topical 1 applic topical BID 01/07/24 11/08/24 cream amlodipine 10 mg tablet 10 mg PO DAILY 10/18/24 11/08/24 carvedilol 12.5 mg tablet 12.5 mg PO BID 10/18/24 11/08/24 dulaglutide 0.75 mg/0.5 mL mg SUBCUT DAILY 10/18/24 11/08/24 subcutaneous pen injector (Trulicity) hydralazine 50 mg tablet 50 mg PO TID 10/18/24 11/08/24 naloxone 0.4 mg/mL injection 0.4 mg SUBCUT Q2M PRN 10/18/24 11/08/24 solution polyethylene glycol 3350 17 gram 17 g PO DAILY 10/18/24 11/08/24 oral powder packet (Miralax) quetiapine 50 mg tablet 50 mg PO DAILY 10/18/24 11/08/24 simethicone 125 mg capsule (Gas-X 125 mg PO DAILY PRN 10/18/24 11/08/24 Extra Strength) sulfamethoxazole 800 1 tab PO BID 10/14-10/21/24 10/18/24 11/08/24 mg-trimethoprim 160 mg tablet (Bactrim DS) Previous Rx's ?Medication ?Instructions ?Recorded diclofenac sodium 1 % topical gel 2 g topical QID #100 grams 10/13/20 pen needle, diabetic 33 gauge x #100 ea 09/08/22 1/4 (Comfort EZ Pen [place]) bumetanide 1 mg tablet 1 mg PO DAILY PRN Swelling #10 tabs 01/20/23 insulin glargine 100 unit/mL (3 5 unit (0.05 mL) SUBCUT QPM #15 mL 01/20/23 mL) subcutaneous pen (Lantus Solostar U-100 Insulin) insulin lispro 100 unit/mL See Protocol SUBCUT TID #15 mL 01/20/23 subcutaneous pen (Humalog KwikPen (U-100) Insulin) flash glucose scanning reader #1 ea 10/18/24 (FreeStyle Colette 14 Day Perry) flash glucose sensor (FreeStyle #2 ea 10/18/24 Colette 14 Day Sensor kit) cefdinir 300 mg capsule 300 mg PO BID 5 days #10 caps 12/13/24 Allergies Allergy/AdvReac Type Severity Reaction Status Date / Time lisinopril Allergy Mild ADR-Swelling Verified 11/08/24 06:47 of the Eye codeine Allergy ALGY-Hives Verified 11/08/24 06:47 Sulfa (Sulfonamide Allergy Unknown Verified 11/08/24 06:47 Antibiotics) Review of Systems General: Reports: ROS unobtainable due to medical condition and ROS unobtainable due to mental status PFSH ED PFSH: Medical History (Updated 12/13/24 @ 17:42 by Cora Marin MD) 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 History of DVT (deep vein thrombosis) Peripheral edema PVD (peripheral vascular disease) Cellulitis of foot associated with diabetes mellitus Onychomycosis Major depression CHF (congestive heart failure) Allergic rhinitis Irregular heart beat Arthralgia Large platelets ABDON (generalized anxiety disorder) GERD (gastroesophageal reflux disease) Type 2 diabetes mellitus without complication, without long-term current use of insulin Bydureon switched to glipizide due to cost Hypertension, benign Hyperlipemia, mixed Neuropathy in diabetes Sleep apnea, obstructive Surgical History H/O laminectomy History of suprapubic catheter History of colostomy Hx of cholecystectomy H/O: hysterectomy Family History Father Heart disease Family/Other Cancer aunt-breast cancer Other Diabetes Social History (Reviewed 11/08/24 @ 06:47 by JESSIE Reddy Smoking and tobacco/nicotine status: never used tobacco/nicotine Alcohol intake: never Substance/Drug Use: never Current gender identity: Female Female Reproductive History: Spontaneous abortions: No Physical Exam Narrative: General: Alert, no acute distress. Skin: Warm, dry. Head: Normocephalic, atraumatic. Neck: Supple, trachea midline. Eye: Extraocular movements are intact. Ears, nose, mouth and throat: mucosa moist. Cardiovascular: Regular, Normal peripheral perfusion. Respiratory: Lungs are clear to auscultation, respirations are non-labored, breath sounds are equal, Symmetrical chest wall expansion. Gastrointestinal: Soft, Nontender, Non distended Musculoskeletal: Right BKA Neurological: Alert, but is not oriented and does not even know her name. No focal neurological deficit observed. Psychiatric: Cooperative, odd affect. Cannot remember her name or any of the events of the day Course Vital Signs: Vital signs: Vital Signs Temperature 98.0 F 12/13/24 15:14 Pulse Rate 74 12/13/24 17:13 Respiratory Rate 18 12/13/24 16:50 Blood Pressure 179/91 12/13/24 17:13 Pulse Oximetry 93 12/13/24 17:13 Oxygen Delivery Me thod Room Air 12/13/24 17:13 MDM - Altered Mental Status Medical Decision Making Medical decision making: Differential diagnosis including but not limited to and based on the above HPI, review of systems and physical exam: In this patient with altered mental status: Stroke. Hypoglycemia. Metabolic encephalopathy. Infections such as pneumonia, urinary tract infection, Covid-19, Influenza. Electrolyte abnormalities such as hypernatremia. Renal failure / uremia. Hepatic encephalopathy. Hypoxemia. Hypercapnic respiratory failure. Psychosis. Drug or alcohol intoxication. Medication overdose. Orders placed to evaluate differential diagnosis based on the above differential, HPI and physical exam CT head: There is concern for increased density in the M1 segment of the right MCA which may be new from previous CT and a CTA was recommended. no intracranial hemorrhage, no evidence of infarct. no evidence of acute fracture.This was reviewed and interpreted by myself the ER physician. Lab Review: Laboratory results were reviewed and interpreted by myself the emergency room physician. No leukocytosis. No anemia. No renal failure. Drug screen is positive for benzos only. Flu COVID RSV are negative. UA is positive for nitrate, 6-10 whites and no bacteria. Possible UTI I feel I have to treated at this point. Given that she has had fluctuating altered mental status Consultation: With the findings seen on CT I did call a stroke at this point however the patient is on Eliquis and is out of the timeframe. Last known well time was around 8:30 AM. And at this point she seems to be resolving. CTA of the head and neck: No acute process. There is 50% stenosis of the proximal right internal carotid with no vascular occlusion seen. I reviewed the patient's medical record. Consultation: I spoke with Dr. Horner again. With a negative CTA and very minimal findings on the CT she recommends transfer back home especially since she is completely resolved at this point. This seems to be more of a behavioral thing. Also she has a mild UTI possibly. Reexamination: Patient is now talkative. She seems somewhat depressed and says she does not want to be here. When I push further she says she is not suicidal she did not take any pills. She says she is not wanting to . She says she wants to go back to [place] where her family is. Assessment and plan: Altered mental status: Resolved Urinary tract infection - Discharged home - Discussed plan with patient. Answered any questions. - Evaluation and treatment of this problem were appropriate in the emergency setting. Lab Data 12/13/24 16:24 12/13/24 16:[address] 12/13/24 15:17 IMPRESSION: There is increased density in the M1 segment of the right MCA which is new since the previous study suspicious for possible thrombus given history. CTA recommended for follow-up. ASSESSMENT: ASPECTS ([place] Stroke Program Early CT Score) is 10. ADDENDUM: 12/13/24 1559 THIS REPORT CONTAINS FINDINGS THAT MAY BE CRITICAL TO PATIENT CARE. As of 3:58 PM CDT on 12/13/2024, CORA Estrada has received the exam report, is aware of the critical finding(s), and indicated no conference call is necessary to discuss the exam findings. Head/Neck CTA 12/13/24 16:16 IMPRESSION: No acute large vessel occlusion identified. IMPRESSION: There is 50% stenosis of the proximal right internal carotid artery. No vascular occlusion seen in the neck. COMMENTS: Consistent with the [place]'s Incidental Findings Committee white paper (J Am Noman Radiol 2015): In patients aged 35 years and older with an incidental thyroid nodule equal to or greater than 1.[address], MRI or extrathyroidal US, further evaluation with dedicated thyroid US is recommended for patients with normal life expectancy and without comorbidities. For smaller nodules without suspicious features, no further evaluation or follow up is recommended. REFERENCES: NASCET CRITERIA. The degree of stenosis in the cervical segment of the internal carotid artery is based on NASCET criteria. Normal is no stenosis. Mild is less than 50% stenosis. Moderate is 50-69% stenosis. Severe is 70% to 99% stenosis. Total occlusion is no detectable patent lumen. ADDENDUM: 12/13/24 1733 Findings were discussed with CORA Estrada at 12/13/2024 5:31 PM CDT. Laboratory Results WBC 7.68 10^3/uL (3.29-11.43) 12/13/24 16:24 RBC 4.69 10^6/uL (3.85-5.65) 12/13/24 16:24 Hgb 14.50 g/dL (11.27-16.99) 12/13/24 16:24 Hct 42.2 % (36-47) 12/13/24 16:24 MCV 90.0 fl (85-98) 12/13/24 16:24 MCH 30.9 pg (27-33) 12/13/24 16:24 MCHC 34.4 g/dL (30-55) 12/13/24 16:24 RDW 14.4 % (12.1-15.1) 12/13/24 16:24 Plt Count 275 10^3/cmm (157-399) 12/13/24 16:24 MPV 8.8 fL (7.4-10.4) 12/13/24 16:24 Neut % (Auto) 68.0 % 12/13/24 16:24 Lymph % (Auto) 20.4 % 12/13/24 16:24 [place] % (Auto) 8.3 % 12/13/24 16:24 Eos % (Auto) 2.1 % 12/13/24 16:24 Baso % (Auto) 0.8 % 12/13/24 16:24 Neut # (Auto) 5.22 10^3/uL (1.8-7.7) 12/13/24 16:24 Lymph # (Auto) 1.6 10^3/uL (0.8-4.8) 12/13/24 16:24 [place] # (Auto) 0.6 10^3/uL (0.2-0.9) 12/13/24 16:24 Eos # (Auto) 0.2 10^3/uL (0.0-0.8) 12/13/24 16:24 Baso # (Auto) 0.1 10^3/uL (0.0-0.1) 12/13/24 16:24 Nucleated RBC % (auto) 0 % 12/13/24 16:24 Nucleated RBCs # 0.0 /100WBC 12/13/24 16:24 PT 13.10 SECONDS (12.1-14.9) 12/13/24 16:24 INR 0.93 (0.8-1.2) 12/13/24 16:24 APTT 44.9 SECONDS (23.9-36.7) H 12/13/24 16:24 Sodium 140 mmol/L (136-145) 12/13/24 16:24 Potassium 3.9 mmol/L (3.5-5.1) 12/13/24 16:24 Chloride 101 mmol/L (98-107) 12/13/24 16:24 Carbon Dioxide 25 mmol/L (22-29) 12/13/24 16:24 Anion Gap 17.9 (5-19) 12/13/24 16:24 BUN 12 mg/dL (8-23) 12/13/24 16:24 Creatinine 0.7 mg/dL (0.5-0.9) 12/13/24 16:24 GFR Calculation 85.1 mL/min (90-130) L 12/13/24 16:24 Glucose 163 mg/dL (65-115) H 12/13/24 16:24 POC Glucose 166 mg/dL (70-110) H 12/13/24 15:54 Calculated Osmolality 293 mOsm/kg (285-295) 12/13/24 16:24 Calcium 9.8 mg/dL (8.5-10.5) 12/13/24 16:24 Total Bilirubin 0.4 mg/dL (0.15-1.2) 12/13/24 16:24 AST 19 U/L (0-32) 12/13/24 16:24 ALT 25 U/L (0-33) 12/13/24 16:24 Alkaline Phosphatase 130 U/L (35-105) H 12/13/24 16:24 Total Protein 8.0 g/dL (6.6-8.7) 12/13/24 16:24 Albumin 4.1 g/dL (3.5-5.2) 12/13/24 16:24 Globulin 3.9 g/dL (1.3-4.6) 12/13/24 16:24 Urine Color Yellow (Yellow) 12/13/24 15:43 Urine Appearance Clear (CLEAR) 12/13/24 15:43 Urine pH 5.5 (5-7) 12/13/24 15:43 Ur Specific [place] 1.010 (1.005-1.030) 12/13/24 15:43 Urine Protein 2+ (Negative) A 12/13/24 15:43 Urine Glucose (UA) Negative (Normal) 12/13/24 15:43 Urine Ketones Negative (Negative) 12/13/24 15:43 Urine Blood Negative (Negative) 12/13/24 15:43 Urine Nitrate Positive (Negative) A 12/13/24 15:43 Urine Bilirubin Negative (Negative) 12/13/24 15:43 Urine Urobilinogen 0.2 mg/dL (Negative) 12/13/24 15:43 Ur Leukocyte Esterase 1+ (Negative) A 12/13/24 15:43 Urine RBC 0-2 /hpf (0-2) 12/13/24 15:43 Urine WBC 6-10 /hpf (0-5) 12/13/24 15:43 Ur Squamous Epith Cells 0-5 /hpf (0-5) 12/13/24 15:43 Amorphous Sediment Not Reportable 12/13/24 15:43 Urine Bacteria None seen /hpf (NONE) 12/13/24 15:43 Hyaline Casts 0.81 /lpf 12/13/24 15:43 Salicylates < 0.3 mg/dL (3-10) L 12/13/24 16:24 Urine Opiates Screen Negative ng/mL (Negative) 12/13/24 15:43 Acetaminophen < 5.0 ug/mL (10-30) L 12/13/24 16:24 Ur Barbiturates Screen Negative ng/mL (Negative) 12/13/24 15:43 Ur Phencyclidine Scrn Negative ng/mL (Negative) 12/13/24 15:43 Ur Amphetamines Screen Negative ng/mL (Negative) 12/13/24 15:43 U Benzodiazepines Scrn Positive ng/mL (Negative) H 12/13/24 15:43 Urine Cocaine Screen Negative ng/mL (Negative) 12/13/24 15:43 U Marijuana (THC) Screen Negative ng/mL (Negative) 12/13/24 15:43 Ethyl Alcohol < 10 mg/dL (0-10) 12/13/24 16:24 Influenza A (PCR) Negative (Negative) 12/13/24 15:57 Influenza Type B (PCR) Negative (Negative) 12/13/24 15:57 RSV (PCR) Negative (Negative) 12/13/24 15:57 SARS-CoV-2 (PCR) Negative (Negative) 12/13/24 15:57 All radiology interpretation(s) finalized by discharge Discharge Plan Discharge Patient Disposition: Home Clinical Impression: Urinary tract infection, Carotid arterial disease Condition: Stable Prescriptions: New cefdinir 300 mg capsule 300 mg PO BID 5 Days Qty: 10 0RF No Action carvedilol 12.5 mg tablet 12.5 mg PO BID Rx Instructions: must administer with a meal/food polyethylene glycol 3350 [Miralax] 17 gram powder in packet 17 g PO DAILY naloxone 0.4 mg/mL solution 0.4 mg SUBCUT Q2M PRN Rx Instructions: NTExceed 10 mg total dose/episode simethicone [Gas-X Extra Strength] 125 mg capsule 125 mg PO DAILY PRN sulfamethoxazole-trimethoprim [Bactrim DS] 800-160 mg tablet 1 tab PO BID amlodipine 10 mg tablet 10 mg PO DAILY hydralazine 50 mg tablet 50 mg PO TID quetiapine 50 mg tablet 50 mg PO DAILY Trulicity 0.75 mg/0.5 mL pen injector SUBCUT DAILY (DME) FreeStyle Colette 14 Day Perry Misc See Rx Instructions .ROUTE .MEDSUPPLY Qty: 1 0RF Rx Instructions: As directed (DME) FreeStyle Colette 14 Day Sensor Kit See Rx Instructions .ROUTE .MEDSUPPLY Qty: 2 12RF Rx Instructions: As directed diclofenac sodium 1 % gel 2 g TOPICAL QID Qty: 100 0RF Rx Instructions: apply to single elbow, wrist or hand; for hand includes palm/fingers/back of hand (DME) Comfort EZ Pen [place] 33 gauge x 1/4 needle See Rx Instructions .ROUTE .MEDSUPPLY Qty: 100 2RF Rx Instructions: As directed nystatin 100,000 unit/gram cream 1 applic TOPICAL BID capsaicin 0.025 % Cream 1 applic TOPICAL QID PRN (Reason: FOR PAIN) Biofreeze (menthol) 4 % Gel 1 applic TOPICAL PRN PRN (Reason: Pain) acetaminophen 325 mg Tablet 650 mg PO QID PRN (Reason: Pain) multivitamin Tablet 1 tab PO DAILY dantrolene 25 mg Capsule 25 mg PO TID atorvastatin 10 mg Tablet 10 mg PO QPM sennosides-docusate sodium [Senokot-S] 8.6-50 mg Tablet 1 tab-cap PO BID aspirin 81 mg Tablet,Delayed Release (Dr/Ec) 81 mg PO BID lorazepam 0.5 mg Tablet See Rx Instructions .ROUTE .COMPLEX PRN (Reason: Anxiety) Rx Instructions: 0.5 mg orally twice daily and 0.5 mg every 6 hours as needed ascorbic acid (vitamin C) [Vitamin C] 500 mg Tablet 500 mg PO TID baclofen 10 mg Tablet 10 mg PO Q6H PRN (Reason: Muscle Spasm) pantoprazole 40 mg Tablet,Delayed Release (Dr/Ec) 40 mg PO DAILY docusate sodium 100 mg Capsule 100 mg PO DAILY buspirone 15 mg Tablet 15 mg PO TID oxycodone 5 mg Tablet 5 - 10 mg PO Q4H PRN (Reason: Pain) pregabalin 25 mg Capsule 25 mg PO BID PRN (Reason: Pain) pregabalin 100 mg Capsule 100 mg PO BID Eliquis 5 mg Tablet 5 mg PO BID Probiotic 3 billion cell Capsule 3,000 mmu cells PO BID Rx Instructions: administer with a meal insulin glargine [Lantus Solostar U-100 Insulin] 100 unit/mL (3 mL) insulin pen 5 unit SUBCUT QPM Qty: 15 0RF insulin lispro [Humalog KwikPen Insulin] 100 unit/mL insulin pen See Protocol SUBCUT TID Qty: 15 0RF Protocol: Insulin Corrective High-Dose Regimen Condition: Fingerstick Blood Glucose Dose/Route: Insulin Units Condition: 141-180 mg/dl Dose/Route: 4 units/SQ Condition: 181-220 mg/dl Dose/Route: 6 units/SQ Condition: 221-260 mg/dl Dose/Route: 8 units/SQ Condition: 261-300 mg/dl Dose/Route: 10 units/SQ Condition: 301-350 mg/dl Dose/Route: 14 units/SQ Condition: 351-400 mg/dl Dose/Route: 16 units/SQ Condition: greater than 400 mg/dl Dose/Route: 18 units/SQ bumetanide 1 mg Tablet 1 mg PO DAILY PRN (Reason: Swelling) Qty: 10 0RF Discharge Orders: Discharge ED (Routine); Ordered 12/13/24 Ordered By: Cora Marin Referrals: Stephanie Montague MD [Primary Care Provider, [facility]] Discharge Diet: Usual diet Discharge Activity: Increase activity as tolerated Patient Instructions: Altered Mental Status (ED), Urinary Tract Infection in Older Adults (ED), Opioid Safety, Pain Management, Patient Portal & Manuel Instructions Activity Restrictions/Additional Instructions: Please discuss with your primary provider about possibly increasing your atorvastatin if you can tolerate it. This is for stroke prevention. Thank you for choosing [facility] for your healthcare needs today. You have been screened and evaluated and felt safe for discharge. Health conditions do change or evolve sometimes and as such it is important that you follow up with your Primary Doctor to be re checked, 3-5 days is a general good time frame for follow up. You are always welcome to return to the ED for re assessment if your symptoms are worsening or you have new concerns Print Language: Persian Coding Level of Care Code ED Resource Management Planner for Kenneth Carrero
--- OUTSIDE RECORDS SUMMARY | 2024-12-13 15:25 | XMS_ITS | Clinical Summary ---
Author Organization [facility] Facility Address [address] [address] Care Team Providers Care Faculty Instructor Name Role Phone Stephanie Montague MD Primary Care Provider [phone] Allergies Active Allergy Reactions Criticality Noted Date Comments Codeine Other (see comments) 08/03/2021 Lisinopril Swelling Low 08/03/2021 Medications acetaminophen (TYLENOL) 500 MG tablet Take 1,000 mg by mouth 3 (three) times a day if needed 2 Active Lantus SoloStar 100 UNIT/ML injection Inject 10 Units under the skin 1 (one) time each day 2 Active montelukast (SINGULAIR) 10 MG tablet Take 10 mg by mouth 1 (one) time each day 2 Active nortriptyline (PAMELOR) 25 MG capsule Take 25 mg by mouth every night 2 Active omega-3 acid ethyl esters (LOVAZA) 1 g capsule Take 1 g by mouth in the morning and 1 g in the evening. 2 Active omeprazole (PriLOSEC) [address] capsule Take 40 mg by mouth 1 (one) time each day 2 Active polyethylene glycol (GLYCOLAX) 17 GM/SCOOP powder Take 17 g by mouth in the morning and 17 g in the evening. 2 Active potassium chloride (MICRO-K) 8 MEQ CR capsule Take 8 mEq by mouth in the morning and 8 mEq at noon and 8 mEq in the evening. 2 Active pregabalin (LYRICA) 150 MG capsule Take 1 capsule by mouth in the morning and 1 capsule in the evening. With 300 mg caps. 2 Active pregabalin (LYRICA) 300 MG capsule Take 1 capsule by mouth 1 (one) time each day With 150 mg caps 2 Active saccharomyces boulardii (FLORASTOR) 250 MG capsule Take 250 mg by mouth in the morning and 250 mg in the evening. 2 Active senna-docusate (PERICOLACE) 8.6-50 MG per tablet Take 1 tablet by mouth in the morning and 1 tablet in the evening. 2 Active simvastatin (ZOCOR) 20 MG tablet Take 20 mg by mouth every night 2 Active sodium bicarbonate 650 MG tablet Take 650 mg by mouth in the morning and 650 mg at noon and 650 mg in the evening and 650 mg before bedtime. 2 Active venlafaxine XR (EFFEXOR-XR) 150 MG 24 hr capsule Take 1 capsule by mouth 1 (one) time each day 2 Active aspirin (ST PATI) 81 MG EC tablet Take 81 mg by mouth 1 (one) time each day Active bethanechol (URECHOLINE) 10 MG tablet Take 10 mg by mouth in the morning and 10 mg at noon and 10 mg in the evening and 10 mg before bedtime. Active bumetanide (BUMEX) 1 MG tablet Take 1 mg by mouth in the morning and 1 mg in the evening. Active insulin lispro (HumaLOG) 100 UNIT/ML injection Inject under the skin 3 (three) times a day before meals Per sliding scale Active metoprolol tartrate 25 MG tablet Take 25 mg by mouth in the morning and 25 mg in the evening. Active metroNIDAZOLE (FLAGYL) 500 MG tablet Take 500 mg by mouth in the morning and 500 mg in the evening and 500 mg before bedtime. Active oxyCODONE (OXY-IR) 5 MG immediate release capsule Take 5 mg by mouth every 4 (four) hours if needed for moderate pain Active Multiple Vitamin (multivitamin) tablet Take 1 tablet by mouth 1 (one) time each day Active Dulaglutide (Trulicity) 0.75 MG/0.5ML solution pen-injector Inject 0.75 mg under the skin per week Active venlafaxine XR (EFFEXOR-XR) 75 MG 24 hr capsule Take 75 mg by mouth 1 (one) time each day Do not crush or chew. Active cholecalciferol (VITAMIN D-3) 25 MCG (1000 UT) capsule Take 1,000 Units by mouth 1 (one) time each day Active Active Problems Problem Noted Date Diagnosed Date Heart failure with normal ejection fraction 01/19 Acute kidney failure 01/21/2022 Peripheral vascular disease 01/21/2022 Benign essential hypertension 01/21/2022 Type 2 diabetes mellitus wit h diabetic chronic kidney disease 01/21/2022 Hyperlipidemia 01/21/2022 Family History Relation Status Comments Father Alive Mother Alive Social History Tobacco Use Types Packs/Day Years Used Date Smoking Tobacco: Never Smokeless Tobacco: Never Tobacco Cessation:Counseling Given: Not Answered Alcohol Use Standard Drinks/Week Comments Never 0 (1 standard drink = 0.6 oz pur e alcohol) Comments Unknown Sex and Gender Information Value Date Recorded Sex Assigned at Not on file Legal Sex Female 3:37 PM EDT Gender Identity Not on file Sexual Orientation Not on file Plan of Treatment Health Maintenance Due Date Last Done Comments Breast Cancer Screening 1965 Pneumococcal Vaccine: 50+ Ye ars (1 of 2 - PCV) 09/08/1982 Colorectal Cancer Screening: Annual FOBT 09/08/2012 Colorectal Cancer Screening: Colonoscopy 09/08/2012 Colorectal Cancer Screening: Sigmoidoscopy 09/08/2012 Diabetes: Ophthalmology Exam 01/06/2022 Diabetes: Pedal Pulse Checked 01/06/2022 Diabetes: Sensory Foot Exam 01/06/2022 Diabetes: Visual Foot Exam 01/06/2022 Diabetes: Hemoglobin A1C 04/23/2022 01/21/2022 Influenza Vaccine (#1) 2024 Hepatitis B Vaccine Aged Out No longe r eligible based on patient's age to complete this topic Procedures Procedure Name Priority Date/Time Associated Diagnosis Comments HEMOGLOBIN A1C (EXTERNAL RESULT ENTRY) Routine 01/21/2022 4:50 AM CDT from Last 3 Months or Most Recently Relevant to Health Maintenance Results * Hemoglobin A1C (01/21/2022 4:50 AM CDT) Hemoglobin A1C 8.3 Blood specimen (specimen) Venous blood / Unknown 01/21/2022 4:50 AM CDT Narrative Melissa Chiu LPN - 01/21/2022 9:04 PM CDT [facility] [address] [facility] [id number] Historical Provider LAB BLOOD ORDERABLES Jennifer l Result from Last 3 Months or Most Recently Relevant to Health Maintenance Insurance Sissy Landon Care Teams Faculty Instructor Relationship Specialty Start Date End Date Stephanie Montague MD [address] [id number] PCP - General Family Medicine 01/02/22
--- OUTSIDE RECORDS SUMMARY | 2024-12-13 15:25 | XMS_ITS | Patient Health Record ---
Author Organization [facility] Address [address] [place] [address] Care Team Providers Care Automotive Vehicle Inspector Name Role Phone Nima Becker Unavailable Unavailable Reason For Referral No Information Plan Of Treatment No Information Insurance Providers Payer Name Payer Address Payer Phone Subscriber Number Group Number Insured Name Patient Relationship to Insured Coverage Start Date Coverage End Date FACILITY [facility] [employer] Self - patient is the insured [employer] CL # [id number] [employer] Self - patient is the insured 2
--- OUTSIDE RECORDS SUMMARY | 2024-12-13 15:26 | XMS_ITS | Clinical Summary ---
Author Organization [facility] Address [address] [place] [address] Phone Care Team Providers Care Lining Sewer Name Role Phone ParamMary koo Primary Care Provider Allergies Active Allergy Reactions Criticality Noted Date Comments Codeine Unknown 08/03/2021 Lisinopril Swelling Low 08/03/2021 Medications omeprazole (PriLOSEC) 40 mg Capsule, Delayed Release(E.C.) Take 40 mg by mouth daily. 05/29/19 22 Active potassium chloride (MICRO-K EXTENCAPS) 8 mEq Extended Release capsule Take 8 mEq by mouth 3 times daily. 06/11/19 22 Active Miscellaneous Medical Supply Knee scooter & walker 2 Each 08/04/19 22 Active Miscellaneous Medical Supply Knee scooter walker tray 1 Each 08/21/19 22 Active Miscellaneous Medical Supply Shower chair 1 Each 08/28/19 22 Active montelukast (SINGULAIR) 10 mg tablet Take 10 mg by mouth daily. 10/27/19 22 Active nortriptyline (PAMELOR) 25 mg capsule Take 25 mg by mouth daily at bedtime. 11/02/19 22 Active omega-3 acid ethyl esters (LOVAZA) 1 gram Capsule TAKE ONE CAPSULE BY MOUTH TWICE A DAY 10/27/19 22 Active honey (MEDIHONEY) 80 % Gel Apply to affected area daily as directed. 44 mL 1 2 10:20 AM CDT 12/18/19 Active acetaminophen (TYLENOL) 500 mg tablet Take 2 Tablets (1,000 mg) by mouth every 8 hours. 60 Tablet 01/04/20 22 Active polyethylene glycol (MIRALAX) 17 gram Powder in Packet Take 1 Packet (17 Grams) by mouth 2 times daily. 6 Each 01/04/20 Active sodium bicarbonate 650 mg tablet Take 1 Tablet (650 mg) by mouth 4 times daily. Take to preserve kidney function 120 Tablet 01/04/20 Active sennosides-docusa te sodium (SENNA-S) 8.6-50 mg tablet Take 1 Tablet by mouth 2 times daily. 60 Tablet 01/04/20 Active bumetanide (BUMEX) 1 mg tablet Take 1 Tablet (1 mg) by mouth two times daily, 7 hours apart. 60 Tablet 01/19/20 Active Additional Information Patient taking differently:1 mg OralTWO TIMES DAILY, Reported on 02/13/2022 insulin glargine-yfgn 100 unit/mL pen syringe Inject 25 Units by subcutaneous injection daily at bedtime. 15 mL 01/19/20 Active insulin lispro (HumaLOG) 100 unit/mL pen syringe Inject 0-7 Units by subcutaneous injection 3 times daily with meals. Take at meals and bedtime: Less than or equal to 139 = no correctional insulin 140 - 175 = give and/or add 1 unit 176 - 200 = give and/or add 2 units 201 - 250 = give and/or add 3 units 251 - 299 = give and/or add 5 units 300 and greater = give and/or add 7 units 15 mL 01/19/20 Active metoprolol tartrate (LOPRESSOR) 25 mg tablet Take 1 Tablet (25 mg) by mouth 2 times daily. 60 Tablet 01/19/20 Active aspirin (ECOTRIN EC) 81 mg Tablet, Delayed Release (E.C.) Take 1 Tablet (81 mg) by mouth 2 times daily. 01/19/20 Active enoxaparin (LOVENOX) 40 mg/0.4 mL injection Inject by subcutaneous injection daily. Active multivitamin (DAILY-ABHIJIT) tablet Take 1 Tablet by mouth daily. Active Cholecalciferol, Vitamin D3, 50 mcg (2,000 unit) Capsule Take by mouth. Activ e dulaglutide (Trulicity) 0.75 mg/0.5 mL injection Inject 0.75 mg by subcutaneous injection every 7 days. Mondays Active zinc oxide-cod liver oil (Desitin) 40 % Paste Apply to affected area 2 times daily as needed for Rash or Redness. 03/24/20 Active venlafaxine (EFFEXOR XR) 37.5 mg Extended Release 24 hour capsule Take 1 Capsule (37.5 mg) by mouth daily with breakfast. 1 03/25/20 Active busPIRone (BUSPAR) 10 mg tablet Take 1 Tablet (10 mg) by mouth 3 times daily. 03/24/20 Active atorvastatin (LIPITOR) 10 mg tablet Take 10 mg by mouth daily. Active baclofen (LIORESAL) 10 mg tablet Take 10 mg by mouth every 6 hours as needed for Pain. Active celecoxib (CeleBREX) 200 mg capsule Take 200 mg by mouth 2 times daily. Active cyclobenzaprine (FLEXERIL) 10 mg tablet Take 10 mg by mouth daily at bedtime. Active dantrolene (DANTRIUM) 25 mg capsule Take 25 mg by mouth 3 times daily. Active apixaban (Eliquis) 5 mg tablet Take by mouth 2 times daily. Active methenamine hippurate (HIPREX) 1 gram Tablet Take 1 Gram by mouth 2 times daily. Active traMADol (ULTRAM) 50 mg tabletIndications :Multiple trauma,Acute osteomyelitis of spine ([facility]),Neuropa thy involving both lower extremities Take 2 Tablets (100 mg) by mouth every 6 hours. 240 Tablet 2 07/28/19 25 Active pregabalin (LYRICA) 25 mg CapsuleIndication s:Neuropathy involving both lower extremities GIVE ONE CAPSULE BY MOUTH ONE TIME DAILY AFTER LUNCH 30 Capsule 5 09/23/19 25 Active ostomy suppliesIndicatio ns:Colostomy status ([facility]),Neuropa thy involving both lower extremities,Multi ple trauma,Acute osteomyelitis of spine ([facility]),Type 2 diabetes mellitus with diabetic peripheral angiopathy without gangrene, with long-term current use of insulin ([facility]),Parapar esis of both lower limbs ([facility]),Suprapu bic catheter ([facility]),Chronic respiratory failure with hypoxia and [place]capnia [place]Hx of right BKA ([facility]),General ized anxiety disorder,HTN (hypertension), benign,Mixed hyperlipidemia,Hi story of osteomyelitis,PVD (peripheral vascular disease),Personal history of DVT (deep vein thrombosis),Neuro genic bladder,Frail elderly,Type 2 diabetes mellitus with diabetic polyneuropathy, with long-term current use of insulin ([facility]),Body mass index (BMI) 40.0-44.9, adult ([facility]Type 2 diabetes mellitus without complication, with long-term current use of insulin [place]Disciti s of thoracolumbar region,Infection of amputation stump of right lower extremity ([facility]),Recurre nt UTI Ostomy pouch sensura mare concave one-piece system 11inch length, maxi convex, trim to fit 3/8 to 23/8 inch stoma drainable. Change prn. 1 Each 10/01/19 25 Active urological suppliesIndicatio ns:Colostomy status [place]Neuropa thy involving both lower extremities,Multi ple trauma,Acute osteomyelitis of spine ([facility]Type 2 diabetes mellitus with diabetic peripheral angiopathy without gangrene, with long-term current use of insulin ([facility]Parapar esis of both lower limbs ([facility]Suprapu bic catheter [place]Chronic respiratory failure with hypoxia and hypercapnia [place]Hx of right BKA [place]General ized anxiety disorder,HTN (hypertension), benign,Mixed hyperlipidemia,Hi story of osteomyelitis,PVD (peripheral vascular disease),Personal history of DVT (deep vein thrombosis),Neuro genic bladder,Frail elderly,Type 2 diabetes mellitus with diabetic polyneuropathy, with long-term current use of insulin ([facility]Body mass index (BMI) 40.0-44.9, adult [place]Type 2 diabetes mellitus without complication, with long-term current use of insulin [place]Disciti s of thoracolumbar region,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 In Dwelling: Wynne 16 Fr, 10 ml balloon wynne cath, 1 # disp/month All necessary supplies such as leg bag, lubricant, straps, etc. 1 Each 10/01/19 25 Active LORazepam (ATIVAN) 0.5 mg tabletIndications :Multiple trauma,Acute osteomyelitis of spine ([facility]),Neuropa thy involving both lower extremities Take 1 Tablet (0.5 mg) by mouth 3 times daily as needed for Anxiety. 90 Tablet 3 07/09/20 25 Active pregabalin (LYRICA) 100 mg CapsuleIndication s:Neuropathy involving both lower extremities GIVE ONE CAPSULE BY MOUTH EVERY TWELVE HOURS 60 Capsule 4 11/02/19 25 Active oxyCODONE (ROXICODONE) 5 mg tabletIndications :Neuropathy involving both lower extremities,Multi ple trauma,Acute osteomyelitis of spine (CMS/HCC) Take 1-2 Tablets (5-10 mg) by mouth every 4 hours as needed for Pain. Max Daily Amount: 60 mg 180 Tablet 11/26/19 25 Active oxyCODONE (ROXICODONE) 5 mg tabletIndications :Neuropathy involving both lower extremities,Multi ple trauma,Acute osteomyelitis of spine (CMS/HCC) Take 1-2 Tablets (5-10 mg) by mouth every 4 hours as needed for Pain. Max Daily Amount: 60 mg 180 Tablet 11/02/19 25 025 Discontin ued(Reord er) Active Problems Problem Noted Date Diagnosed Date Neurogenic bladder 08/30/2024 Frail elderly 08/30/2024 [facility] resident 06/15/2023 Generalized anxiety disorder 06/15/2023 History of osteomyelitis 04/01/2023 Chronic respiratory failure with hypoxia and hyp ercapnia 04/01/2023 Colostomy status 04/01/2023 Personal history of DVT (deep vein thrombosis) 1 06/02/2022 Hx of right BKA 04/01/2023 Suprapubic catheter 04/01/2023 Paraparesis of both lower limbs 03/11/2022 Spinal epidural abscess 02/26/2022 Psoas abscess, right 02/26/2022 UTI (urinary tract infection) 02/26/2022 Neuropathy of lower extremity 02/26/2022 Weakness of lower extremity 02/26/2022 Discitis of thoracolumbar region 02/26/2022 Acute blood loss anemia 01/13/2022 Acute confusional state 01/08/2022 DM (diabetes mellitus), type 2 01/06/2022 PVD (peripheral vascular disease) 01/05/2022 Type 2 diabetes mellitus with hyperglycemia 12/20 HTN (hypertension), benign 01/01/2022 Recurrent major depressive disorder, in full rem ission 01/01/2022 Hyperlipidemia 01/01/2022 Popliteal artery injury, right, initial encounte r 01/01/2022 Overview (01/01/2022): 2021.01.01 Patient suffered a posterior dislocation of the knee yesterday. CTA re- interpreted as demonstrating dissection in distal popliteal occluding the origin of the posterior tibial artery. Clinically foot is warm with draining abscess on plantar surface of the right foot. Recommend: I reviewed the CTA - I don't think the resolution with CTA below the knee if sufficient to identify a short segment non-occlusive dissection of the right popliteal artery. The foot remains warm and pink. I think her perfusion is adequate. Will check LYDIA and duplex of popliteal artery trifurcation to see if can get better resolution for any dissection. If the artery is dissected I don't think it needs repair as her distal perfusion appears sufficient. I would recommend using DOAC (xarelto 2.5 mg bid) and aspirin if not contraindicated by what orthopedics thinks needs to be done. Infection of amputation stump of right lower ext remity 12/31/2021 Overview (01/10/2022): Added automatically from request for surgery [id number] Resolved Problems Problem Noted Date Diagnosed Date Resolved Date Body mass index (BMI) 40.0-44.9, adult 04/01/2023 08/30/2024 Acute osteomyelitis of spine 02/27/2022 04/01/2023 Diabetic ulcer of right midf oot associated with diabetes mellitus due to underlying condition, with necrosis of muscle 01/18/202204/01 Gas gangrene of foot 01/18/2022 023 Acute respiratory failure with hypoxia 01/08/2022 04/01/2023 Acute pulmonary edema from fluid overload 01/08/2022 04/01/2023 Dislocation of right knee 01/07/2022 Protein-calorie malnutrition, moderate 01/06/2022 04/01/2023 Cellulitis of right foot 01/05/202203/2023 Diabetic ulcer of right midf oot associated with type 2 diabetes mellitus, with fat layer exposed 01/05/2022 04/01/2023 CKD (chronic kidney disease) stage 4, GFR 15-29 ml/min 01/02/2022 04/01/2023 Abscess of right foot 01/01/20222022 Knee dislocation, right, initial encounter 01/01/2022 04/01/2023 Encounters Date Type Department Care Team Description 11/25/2024 Orders Only [facility] [address] [place] [address] Mary Virgen, Neuropathy involving both lower extremities; Multiple trauma; Acute osteomyelitis of spine ([facility]) 11/23/2024 Refill [facility] [address] [place] [address] Mary Virgen, Neuropathy involving both lower extremities; Multiple trauma; Acute osteomyelitis of spine ([facility]) 11/01/2024 Orders Only [facility] [address] [place] [address] Mary Virgen, DO 11/01/2024 Refill [facility] [address] [place] [address] Mary Virgen, Neuropathy involving both lower extremities; Multiple trauma; Acute osteomyelitis of spine ([facility]) 10/27/2024 Refill [facility] [address] [place] [address] Mary Virgen, Multiple trauma; Acute osteomyelitis of spine ([facility]); Neuropathy involving both lower extremities 10/13/2024 Orders Only [facility] [address] [place] [address] Mary Virgen, DO 10/11/2024 Refill [facility] [address] [place] [address] Mary Virgen, Neuropathy involving both lower extremities; Multiple trauma; Acute osteomyelitis of spine ([facility]) 10/05/2024 External Device Data STL ABSTRACTION Provider, Abstract 09/30/2024 Orders Only [facility] [address] [place] [address] Mary Virgen DO Colostomy status [place] (Primary Dx); Neuropathy involving both lower extremities; Multiple trauma; Acute osteomyelitis of spine ([facility]); Type 2 diabetes mellitus with diabetic peripheral angiopathy without gangrene, with long-term current use of insulin ([facility]); Paraparesis of both lower limbs [place] Suprapubic catheter [place] Chronic respiratory failure with hypoxia and hypercapnia [place] Hx of right BKA ([facility] Generalized anxiety disorder; HTN (hypertension), benign; Mixed hyperlipidemia; History of osteomyelitis; PVD (peripheral vascular disease); Personal history of DVT (deep vein thrombosis); Neurogenic bladder; Frail elderly; Type 2 diabetes mellitus with diabetic polyneuropathy, with long-term current use of insulin ([facility] Body mass index (BMI) 40.0-44.9, adult ([facility] Type 2 diabetes mellitus without complication, with long-term current use of insulin ([facility] Discitis of thoracolumbar region; Infection of amputation stump of right lower extremity ([facility] Recurrent UTI 09/25/2024 Refill [facility] [address] [place] [address] Mary Virgen DO Neuropathy involving both lower extremities; Multiple trauma; Acute osteomyelitis of spine ([facility]) from Last 3 Months Immunizations Immunization Administration Dates Next Due (Pfizer Bivalent)(12 Yr Up) COVID-19 Vaccine - Emergency Use Authorization, MRNA, Lnp-S(Pf) 30 Mcg/0.3 Ml Susp 03/12/2022 INFLUENZA VACCINE QUADRIVALENT 6 MOS UP PF IM Td(adult) Unspecified Formulation 07/03/2017 Zoster Vaccine Live SQ 02/19/2021 Social History Tobacco Use Types Packs/Day Years Used Date Smoking Tobacco: Never Smokeless Tobacco: Never Tobacco Cessation:Counseling Given: Not Answered Alcohol Use Standard Drinks/Week Comments Never 0 (1 standard drink = 0.6 oz pur e alcohol) Comments No Sex and Gender Information Value Date Recorded Sex Assigned at Not on file Legal Sex Female 1:55 PM CDT Gender Identity Not on file Sexual Orientation Not on file Last Filed Vital Signs Vital Sign Reading Time Taken Comments Blood Pressure 142/68 02/17/2023 1:04 PM CDT Pulse 63 02/04/2023 8:26 AM CDT Temperature 36.8 C (98.2 F) 03/24/2022 7:50 PM 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 Respiratory Rate 16 03/24/2022 7:50 PM [employer]HOU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 Oxygen Saturation 93% 03/24/2022 7:50 PM [employer]HOU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 Inhaled Oxygen Concentration - - Weight 104.3 kg (230 lb) 02/17/2023 1:04 PM CDT Height 175.3 cm (5' 9 ) 02/17/2023 1:04 PM CDT Body Mass Index 33.97 02/17/2023 1:04 PM CDT Plan of Treatment Health Maintenance Due Date Last Done Comments DIABETES ANNUAL FOOT EXAM 09/08/1981 FIT/ DNA Q 3 YEARS (AUTO ORDER) 09/08/1981 FIT/FOBT Q 1 YEAR (AUTO ORDER) 09/08/1981 FLEX SIG/CT COLONOGRAPHY Q 5 YEARS (AUTO ORDER) 09/08/1981 Traditional Medicare (ACO) A nnual Wellness Visit 09/08/1982 HPV/Cotest (21-29) 09/08/1984 CERVICAL CANCER SCREENING 09/08/1993 HPV/Cotest (30-65) 09/08/1993 PAP SMEAR 09/08/1993 BREAST CANCER SCREENING 2003 COLORECTAL CANCER SCREENING (AUTO ORDER) 09/08/2008 COLORECTAL SCREENING 09/08/2008 Colorectal Cancer Screening (AUTO ORDER) 09/08/2008 Colorectal Cancer Screening 09/08/2008 FIT-DNA Q 3 years 09/08/2008 FIT/FOBT Q 1 year 09/08/2008 Flex Sig/CT Colonography Q 5 years 09/08/2008 DTAP/TDAP/TD VACCINES (1 - Tdap) 07/04/2017 07/04/19 18 ZOSTER VACCINE (2 of 3) 04/16/2021 02/19/2021 RSV VACCINE (60+ or ) (1 - Risk 60-74 years 1-dose series) 2023 COVID-19 Vaccine (2023-2 5 season) 2023 09/30/2022, 03/12/2022, 05/22/2021, Additional history exists DIABETES HBA1C Q 6 MONTHS 09/07/2024 03/10/2024, INFLUENZA VACCINE (#1) 2024 01/18/2022 DIABETES ANNUAL RETINAL EXAM 02/23/2025 02/24/2024 DIABETES MICROALBUMIN ANNUAL SCREEN 03/23/2025 03/23/2024 LDL CHOLESTEROL ANNUAL 03/24/2025 03/24/2024 Medical Devices Implanted Type Area Insole Cementer Device Identifier Shelf Expiration Date Model / Serial / Lot Hemostatic Surgiflo 8ml W/ Thrombin 2994 - [id number] Implanted:Qty: 1 on 02/27/2022 by Itz Serrano MD at [facility] Hemostatic N/A: Spine Thoracic [employer] [id number] 04/20/2023 2994 / / [id number] Explanted Type Area Insole Cementer Device Identifier Shelf Expiration Date Model / Serial / Lot Bar Jetx 350mm [id number] - [id number] Implanted:Qty: 1 on 01/01/2022 by Jai Fields DO at [facility] Explanted:Qty: 1 on 01/10/2022 by Jai Fields DO at [facility] Integral Right: Knee [employer] [id number] / / [id number] MAIN-01 Bar Jetx 350mm [id number] - [id number] Implanted:Qty: 1 on 01/01/2022 by Jai Fields DO at [facility] Explanted:Qty: 1 on 01/10/2022 by Jai Fields DO at [facility] Integral Right: Knee [employer] [id number] / / [id number] MAIN-01 Clamp Jetx Bar-Pin [id number] - [id number] Implanted:Qty: 1 on 01/01/2022 by Jai Fields DO at [facility] Explanted:Qty: 1 on 02/14/2022 by Jai Fields DO at [facility] Integral Right: Knee [employer] [id number] / / [id number] Bar Jetx 150mm [id number] - [id number] Implanted:Qty: 1 on 01/01/2022 by Jai Fields, DO at [facility] Explanted:Qty: 1 on 02/14/2022 by Jai Fields, DO at [facility] Integral Right: Knee [employer] [id number] / / [id number] MAIN-01 Bar Jetx 200mm [id number] - [id number] Implanted:Qty: 1 on 01/10/2022 by Jai Fields, DO at [facility] Explanted:Qty: 1 on 02/14/2022 by Jai Fields, DO at [facility] Right: Leg [employer] 01/19/2024 [id number] / NA / [id number] MAIN-01 Bar Jetx 200mm [id number] - [id number] Implanted:Qty: 1 on 01/11/2022 by aJi Fields, DO at [facility] Explanted:Qty: 1 on 02/14/2022 by Jai Fields, DO at [facility] Right: Leg [employer] [id number] / / [id number] MAIN-01 Clamp Jetx Bar-Pin 4722-6484 - [id number] Implanted:Qty: 1 on 01/01/2022 by Jai Fields, DO at [facility] Explanted:Qty: 1 on 02/14/2022 by Jai Fields, DO at [facility] Right: Knee [employer] [id number] / / [id number] 5 Clamp Jetx Bar-Pin 5746-0884 - [id number] Implanted:Qty: 1 on 01/01/2022 by Jai Fields, DO at [facility] Explanted:Qty: 1 on 02/14/2022 by Jai Fields, DO at [facility] Right: Knee [employer] [id number] / / [id number] 5 Clamp Jetx Bar-Pin 7416-7618 - [id number] Implanted:Qty: 1 on 01/01/2022 by Jai Fields, DO at [facility] Explanted:Qty: 1 on 02/14/2022 by Jai Fields, DO at [facility] Integral Right: Knee [employer] [id number] / / [id number] 5 Clamp Jetx Bar-Pin [id number] - [id number] Implanted:Qty: 1 on 01/01/2022 by Jai Fields, DO at [facility] Explanted:Qty: 1 on 02/14/2022 by Jai Fields, DO at [facility] Right: Knee [employer] [id number] / / [id number] 5 Clamp Jetx Bar-Pin 7968-6589 - [id number] Implanted:Qty: 1 on 01/01/2022 by Jai Fields, DO at [facility] Explanted:Qty: 1 on 02/14/2022 at [facility] Right: Knee [employer] [id number] / / [id number] 5 Clamp Jetx Bar-Bar 6974-5631 - [id number] Implanted:Qty: 1 on 01/01/2022 by Jai Fields, DO at [facility] Explanted:Qty: 1 on 02/14/2022 by Jai Fields, DO at [facility] Right: Knee [employer] [id number] / / [id number] 5 Clamp Jetx Bar-Bar 9495-8187 - [id number] Implanted:Qty: 1 on 01/01/2022 by Jai Fields DO at [facility] Explanted:Qty: 1 on 02/14/2022 by Jai Fields, DO at [facility] Right: Knee [employer] [id number] / / [id number] 5 Bar Jetx 150mm [id number] - [id number] Implanted:Qty: 1 on 01/01/2022 by Jai Fields DO at [facility] Explanted:Qty: 1 on 02/14/2022 by Jai Fields, DO at [facility] Integral Right: Knee [employer] [id number] / / [id number] MAIN-01 Pin Jetx Half Tin 5x30mm Long [id number] - [id number] Implanted:Qty: 1 on 01/01/2022 by Jai Fields, DO at [facility] Explanted:Qty: 1 on 01/10/2022 by Jai Fields, DO at [facility] Pin Right: Knee [employer] [id number] / / [id number] MAIN-01 Pin Jetx Half Tin 5x30mm Long [id number] - [id number] Implanted:Qty: 1 on 01/01/2022 by Jai Fields, DO at [facility] Explanted:Qty: 1 on 02/14/2022 by Jai Fields, DO at [facility] Pin Right: Knee [employer] [id number] / / [id number] MAIN-01 Pin Jetx Half Tin 5x30mm Long [id number] - [id number] Implanted:Qty: 1 on 01/01/2022 by Jai Fields, DO at [facility] Explanted:Qty: 1 on 02/14/2022 by Jai Fields, DO at [facility] Pin Right: Knee [employer] [id number] / / [id number] MAIN-01 Pin Jetx Half Tin 5x30mm Long [id number] - [id number] Implanted:Qty: 1 on 01/01/2022 by Jai Fields, DO at [facility] Explanted:Qty: 1 on 02/14/2022 by Jai Fields, DO at [facility] Pin Right: Knee [employer] [id number] / / [id number] MAIN-01 Pin Jetx Half Tin 5x40mm Long [id number] - [id number] Implanted:Qty: 1 on 01/10/2022 by Jai Fields, at [facility] Explanted:Qty: 1 on 02/14/2022 by Jai Fields DO at [facility] Pin Right: Leg [employer] 01/19/2024 [id number] / NA / [id number] MAIN-01 Procedures Procedure Name Priority Date/Time Associated Diagnosis Comments LIPID PANEL Routine 03/24/2024 7:30 AM 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 Type 2 diabetes mellitus with diabetic polyneuropathy, with long-term current use of insulin ([facility]) MICROALBUMIN/CREATIN INE RATIO, RANDOM UR Routine 03/23/2024 11:00 PM 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 Type 2 diabetes mellitus with diabetic polyneuropathy, with long-term current use of insulin ([facility]) HEMOGLOBIN A1C Routine 03/10/2024 from Last 3 Months or Most Recently Relevant to Health Maintenance Results * LIPID PANEL (03/24/2024 7:30 AM 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) ABSTRACTED CHOLESTEROL 121 EXTERNAL LAB ABSTRACTED TRIGLYCERIDE 95 EXTERNAL LAB ABSTRACTED HDL 38 EXTERNAL LAB ABSTRACTED LDL CALCULATED 64 EXTERNAL LAB Blood 03/24/2024 7:30 AM WAREHOUSE 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 Mary Rose DodsonParam DO CHEMISTRY ORDERABLES Final Result Performing Organization Address [facility] Co de Phone Number EXTERNAL LAB * MICROALBUMIN/CREATININE RATIO, RANDOM UR (03/23/2024 11:00 PM WAREHOUSE 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) ABSTRACTED MICROALBUMIN,URI NE 59.5 EXTERNAL LAB ABSTRACTED CREATININE, URINE EXTERNAL LAB ABSTRACTED MICROALBUMIN/CRE ATININE RATIO, URINE EXTERNAL LAB Urine URINE SPECIMEN OBTAINED BY CLEAN CATCH PROCEDURE / Unknown 03/23/2024 11:00 PM WAREHOUSE 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 us [employer] DO URINE ORDERABLES Final Resu lt EXTERNAL LAB * HEMOGLOBIN A1C (03/10/2024) ABSTRACTED HGB A1C 7.6 % Blood 03/10/2024 us Abstract Provider CHEMISTRY ORDERABLES Final Res ult from Last 3 Months or Most Recently Relevant to Health Maintenance Insurance RX CHO PLANS (INTERNAL) [facility] [employer] [place] [address] [place] [facility] Commercial Advance Directives For more information, please contact: [phone] Documents on File Type Date Recorded Patient Ski Patrol Expl anation Advance Directive POA 01/04/2022 5:51 AM A dvance Directive POA * Full Code (Latest Code Status on File) Date Activated Date Inactivated Comments 02/28/2022 3:59 PM 03/25/2022 10:41 AM * Default Full Code - Needs Discussion Date Activated Date Inactivated Comments 02/26/2022 1:06 AM 02/28/2022 3:59 PM * Full Code Date Activated Date Inactivated Comments 01/15/2022 12:47 PM 01/18/2022 8:18 PM * Full Code Date Activated Date Inactivated Comments 01/10/2022 9:46 AM 01/15/2022 12:45 PM * Full Code Date Activated Date Inactivated Comments 01/01/2022 4:48 PM 01/10/2022 9:46 AM Care Teams Lining Sewer Relationship Specialty Start Date End Date Mary Virgen DO [address] [phone] PCP - General Family Practice 12/05/23
--- OUTSIDE RECORDS SUMMARY | 2024-12-13 15:26 | XMS_ITS | Patient Health Record ---
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 Name Role Phone Miky Quevedo MD Primary Care Provider Junior Avina Unavailable [phone] Allergies Allergen (clinical drug ingredient) Drug/Non Drug Allergy documented on EMR Reaction Allergy Type Onset Date Status lisinopril Lisinopril Unknown Drug Allergy Activ e codeine Codeine Unknown Drug Allergy Active Reason For Referral No Information Medications Medication SIG (Take, Route, Frequency, Duration) Notes Start Date End Date Status Zinc Oxide 40 % as directed Externally Active Minerin Creme - as directed Externally Active tiZANidine HCl 4 MG 1 tablet as needed Orally Three times a day Active Enemeez Plus 20-283 MG as directed Rectal Active GlucaGen HypoKit 1 MG as directed Injection Active Senokot S 8.6-50 MG 1 tablet as needed Orally Twice a day Active Voltaren 1 % as directed Externally Active Ondansetron 4 MG 1 tablet on the tong ue and allow to dissolve Orally Once a day; Duration: 30 day(s) Active Magnesium Hydroxide 400 MG/5ML 5 mL at least 4 hours between doses as needed Orally Four times a day Active Fish Oil Extra Strength 1200 MG 1 capsule Orally Once a day; Duration: 30 day(s) Active Bisacodyl 10 MG 1 suppository as nee ded Rectal Once a day; Duration: 30 day(s) Active Lactobacillus - as directed Orally Active Atorvastatin Calcium 10 MG 1 tablet Oral ly Once a day; Duration: 30 day(s) Active Fluticasone Propionate 50 MCG/ACT 1 spray in each nostril Nasally Once a day; Duration: 30 day(s) Active busPIRone HCl 15 MG 1 tablet Orally Twic e a day Active Ascorbic Acid 500 MG 1 tablet Orally Onc e a day; Duration: 30 day(s) Active Calcium + D 500-1000-40 MG-UNT-MCG as directed Orally Active Calcium Polycarbophil 625 MG 2 tablets a s needed Orally Four times a day Active Apixaban 5 MG 1 tablet Orally Twic e a day; Duration: 30 day(s) Active Cholecalciferol 125 MCG (5000 UT) as directed Orally Active Aspirin 81 MG 1 capsule Orally Onc e a day; Duration: 30 day(s) Active Simethicone 80 MG 1 tablet after meals and at bedtime as needed Orally Four times a day Active Lidocaine HCl 4 % as directed Externally Active Loperamide HCl 2 MG 1 capsule as needed Orally Four times a day Active Baclofen 10 MG 1 packet Orally Thre e times a day; Duration: 30 day(s) Active Magnesium Oxide 400 MG 1 tablet as neede d Orally Once a day; Duration: 30 day(s) Active Metoprolol Succinate 25 MG 1 capsule Ora lly Once a day; Duration: 30 day(s) Active Exenatide ER 2 MG/0.85ML as directed Subcutaneous Active Insulin Lispro 100 UNIT/ML as directed Subcutaneous Active LORazepam 0.5 MG 1 tablet at bedtime as needed Orally Once a day Active metFORMIN HCl 1000 MG 1 tablet with a me al Orally Once a day; Duration: 30 day(s) Active Pregabalin 50 MG 1 capsule Orally Twi ce a day Active oxyCODONE HCl 5 MG 1 tablet as needed Orally every 6 hrs Active Nortriptyline HCl 25 MG 1 capsule Orally Once a day; Duration: 30 day(s) Active Potassium Chloride - as directed Active Pantoprazole Sodium 40 MG 1 tablet Orall y Once a day; Duration: 30 day(s) Active Venlafaxine HCl ER 150 MG 1 capsule with food Orally Once a day; Duration: 30 day(s) Active Lidocaine 4 % 1 application as nee ded Externally Three times a day Active Insulin Glargine 100 UNIT/ML as directed Subcutaneous Active Cyclobenzaprine HCl 10 MG 1 tablet at be dtime as needed Orally Once a day; Duration: 30 day(s) Active QUEtiapine Fumarate 25 MG 1 tablet at be dtime Orally Once a day; Duration: 30 day(s) Active Multivitamin & Mineral - as directed Orally Active Mafenide Acetate 85 MG/GM 1 application Externally Once a day Active Bumetanide 1 MG 1 tablet Orally Once a day; Duration: 30 day(s) Active Montelukast Sodium 10 MG 1 tablet Orally Once a day; Duration: 30 day(s) Active Saline Nasal [place] 0.65 % as directed Nasally Active UTI-Stat - as directed Orally Active Glucose 5 GM as directed Orally Active Acetaminophen 500 MG 2 capsule as needed Orally every 8 hrs Active levoFLOXacin 750 MG 1 tablet Orally Once a day; Duration: 10 day(s) Active Problems Problem Type SNOMED Code ICD Code Onset Dates Problem Status W/U Status Risk Notes Problem Type II diabetes mellitus without complication (191756867) Type 2 diabetes mellitus without complications (E11.9) Active confirmed Problem Cauda equina syndrome (997080576) Cauda equina syndrome (G83.4) Active confirmed Problem Peripheral vascular disease (876692639) Peripheral vascular disease, unspecified (I73.9) Active confirmed Problem Neurogenic bowel (101187731) Neurogenic bowel, not elsewhere classified (K59.2) Active confirmed Problem Panniculitis (77271359) Panniculitis, unspecified (M79.3) Active confirmed Problem Neurogenic dysfunction of the urinary bladder (481906373) Neuromuscular dysfunction of bladder, unspecified (N31.9) Active confirmed Problem Incontinence of feces (22164890) Full incontinence of feces (R15.9) Active confirmed Problem Localized edema (9495780) Localized edema (R60.0) Active confirmed Problem Long-term current use of anticoagulant (273889035) group home (current) use of anticoagulants (Z79.01) Active confirmed Problem Amputated below knee (599830206) Acquired absence of right leg below knee (Z89.511) Active confirmed Problem Primary hypertension (36460814) Primary hypertension (I10) Active confirmed Plan Of Treatment No Information Insurance Providers Payer Name Payer Address Payer Phone Subscriber Number Group Number Insured Name Patient Relationship to Insured Coverage Start Date Coverage End Date Sissy Landon [address] [place] [address] [id number] Edith García Self - patient is the insured Medical (General) History Medical History History ICD Code Sleep apnea Peripheral vascular disease Hypertension Type 2 diabetes Surgical History Surgery Date(Month/Year) Right BKA Hysterectomy Cholecystectomy Appendectomy T12-L1 laminal decompression
[2024-12-13 16:01] LABS: Glucose Urine UA Negative (Normal); Nitrate Urine Positive (Negative); Specific Gravity, Urine 1.010 (1.005-1.030)
[2024-12-13 16:06] LABS: Add Urine Microscopic? YES
[2024-12-13 16:07] LABS: PCP Screen Urine Negative (Negative)
--- NOTE | 2024-12-13 16:13 | PC.NURSE ---
PT refused for the phleb to get labs. This nurse went to talk to PT. PT stated her name, DB, where she was, and current year. PT stated she didnt answer those questions earlier because i didnt want to Dr schmidt to bedside to explain testing to PT and PT then agreed to get labs drawn.
--- NOTE | 2024-12-13 16:16 | CTR_ITS ---
PROCEDURE INFORMATION: Exam: CTA Head With Contrast, Arteriography Exam date and time: 12/13/2024 4:37 PM Age: 59 years old Clinical indication: Stroke-like symptoms; Speech disturbance; Additional info: Possible stroke TECHNIQUE: Imaging protocol: Computed tomographic angiography of the head with contrast. Exam focused on the arteries. Computed tomographic angiography of the head with contrast. Exam focused on the arteries. AI vessel analysis not performed. 3D rendering (Not supervised by radiologist): MIP and/or 3D reconstructed images were created by the technologist. Radiation optimization: All CT scans at this facility use at least one of these dose optimization techniques: automated exposure control; mA and/or kV adjustment per patient size (includes targeted exams where dose is matched to clinical indication); or iterative reconstruction. Contrast material: OMNIPAQUE 350; Contrast volume: 100 ml; Contrast route: INTRAVENOUS (IV); COMPARISON: CT head thrombolytic [id number] 12/13/2024 3:42 PM RADIATION DOSE METRICS: Total DLP (mGy-cm): 456.62 FINDINGS: ANTERIOR CIRCULATION: Right internal carotid artery: Atherosclerotic changes right internal carotid artery with mild stenosis. Right middle cerebral artery: The right MCA is patent. There is no thrombus present to correlate with the finding on the CT. Right anterior cerebral artery: Right anterior cerebral artery is patent. No significant stenosis. No aneurysm. Anterior communicating artery: No anterior communicating artery aneurysm seen. Left internal carotid artery: Atherosclerotic changes left internal carotid artery with mild stenosis. Left middle cerebral artery: Left middle cerebral artery is patent. No significant stenosis. No aneurysm. Left anterior cerebral artery: Left anterior cerebral artery is patent. No significant stenosis. No aneurysm. POSTERIOR CIRCULATION: Right vertebral artery: Right vertebral artery is patent. No significant stenosis. No aneurysm. Left vertebral artery: Left vertebral artery is patent. No significant stenosis. No aneurysm. Basilar artery: The basilar artery is patent. No significant stenosis. No aneurysm. Right posterior cerebral artery: Right posterior cerebral artery is patent. No significant stenosis. No aneurysm. Left posterior cerebral artery: Left posterior cerebral artery is patent. No significant stenosis. No aneurysm. Veins: Visualized dural venous sinuses grossly patent on this study optimized for arterial assessment. Brain: There is no definite mass, mass effect, or midline shift present. No definite vascular malformation identified. Cerebral ventricles: No significant ventriculomegaly. Bones/joints: No acute osseous abnormality. Soft tissues: Soft tissues are unremarkable as visualized. PROCEDURE INFORMATION: Exam: CTA Neck With Contrast Exam date and time: 12/13/2024 4:37 PM Age: 59 years old Clinical indication: Stroke-like symptoms; Speech disturbance; Additional info: Possible stroke TECHNIQUE: Imaging protocol: Computed tomographic angiography of the neck with contrast. Exam focused on the cervical segments of the vasculature. 3D rendering (Not supervised by radiologist): MIP and/or 3D reconstructed images were created by the technologist. Radiation optimization: All CT scans at this facility use at least one of these dose optimization techniques: automated exposure control; mA and/or kV adjustment per patient size (includes targeted exams where dose is matched to clinical indication); or iterative reconstruction. Contrast material: OMNIPAQUE 350; Contrast volume: 100 ml; Contrast route: INTRAVENOUS (IV); COMPARISON: CT head thrombolytic [id number] 12/13/2024 3:42 PM RADIATION DOSE METRICS: Total DLP (mGy-cm): 456.62 FINDINGS: Right common carotid artery: The right common carotid artery is widely patent. No stenosis. Right internal carotid artery: There is 50% stenosis of the proximal right internal carotid artery related to atherosclerotic changes. Right external carotid artery: Right external carotid artery has no visible occlusion. Left common carotid artery: The left common carotid artery is widely patent. No stenosis. Left internal carotid artery: The left internal carotid artery is patent. No stenosis by NASCET criteria. No evidence of dissection. Left external carotid artery: Left external carotid artery has no visible occlusion. Right vertebral artery: Right vertebral artery is patent. No significant stenosis. No evidence of dissection. Left vertebral artery: Left vertebral artery is patent. No significant stenosis. No evidence of dissection. Thyroid: Partly calcified right thyroid nodule measures 11 mm. More superiorly there is an additional 11 mm right thyroid nodule also seen. Soft tissues: Soft tissues are unremarkable as visualized. Bones/joints: Degenerative bony changes. Lungs: Visualized portions of the lung apices are unremarkable. Other findings: Visualized mediastinal vasculature patent. CT/CT angio headneck* [id number] IMPRESSION: No acute large vessel occlusion identified. IMPRESSION: There is 50% stenosis of the proximal right internal carotid artery. No vascular occlusion seen in the neck. COMMENTS: Consistent with the [employer]'s Incidental Findings Committee white paper (J Am Noman Radiol 2015): In patients aged 35 years and older with an incidental thyroid nodule equal to or greater than 1.[address], MRI or extrathyroidal US, further evaluation with dedicated thyroid US is recommended for patients with normal life expectancy and without comorbidities. For smaller nodules without suspicious features, no further evaluation or follow up is recommended. REFERENCES: NASCET CRITERIA. The degree of stenosis in the cervical segment of the internal carotid artery is based on NASCET criteria. Normal is no stenosis. Mild is less than 50% stenosis. Moderate is 50-69% stenosis. Severe is 70% to 99% stenosis. Total occlusion is no detectable patent lumen.
[2024-12-13 16:40] LABS: Hematocrit 42.2 % (36-47); Hemoglobin 14.50 g/dL (11.27-16.99); Mean Corpuscular HGB Conc 34.4 g/dL (30-55); Mean Corpuscular Hemoglobin 30.9 pg (27-33); Mean Corpuscular Volume 90.0 fl (85-98); Nucleated Red Blood Cells % 0 %; Platelet Count 275 10^3/cmm (157-399); Red Blood Count 4.69 10^6/uL (3.85-5.65); White Blood Count 7.68 10^3/uL (3.29-11.43)
[2024-12-13] MEDS: iohexol 350 mg/mL 500 mL Btl (per mL) IV (16:40)
[2024-12-13 16:55] LABS: Respiratory Syncytial Virus Ce NEGATIVE (Negative); SARS-CoV-2 PCR NEGATIVE (Negative)
[2024-12-13 17:03] LABS: INR 0.93 (0.8-1.2); Partial Thromboplastin Time 44.9 SECONDS (23.9-36.7); Prothrombin Time 13.10 SECONDS (12.1-14.9)
[2024-12-13 17:05] LABS: Alanine Aminotransferase 25 U/L (0-33); Albumin Level 4.1 g/dL (3.5-5.2); Alkaline Phosphatase 130 U/L (35-105); Anion Gap 17.9 (5-19); Aspartate Amino Transferase 19 U/L (0-32); Blood Urea Nitrogen 12 mg/dL (8-23); Calcium 9.8 mg/dL (8.5-10.5); Carbon Dioxide 25 mmol/L (22-29); Chloride 101 mmol/L (98-107); Globulin 3.9 g/dL (1.3-4.6); Glucose 163 mg/dL (65-115); Osmolality Calculated 293 mOsm/kg (285-295); Potassium 3.9 mmol/L (3.5-5.1); Sodium 140 mmol/L (136-145); Total Protein 8.0 g/dL (6.6-8.7)
[2024-12-13 17:09] LABS: Acetaminophen < 5.0 ug/mL (10-30); Alcohol Level < 10 mg/dL (0-10); Salicylate < 0.3 mg/dL (3-10)
[2024-12-13] MEDS: cefTRIAXone 1,000 mg SDV 1000 MG IVP (17:13)
== END 2024-12-13 19:16 | disposition home or self-care (01) ==
PROVIDERS: Emergency Provider Emergency Medicine; PCP Family Medicine
DX: N39.0 Urinary tract infection, site not specified (principal); I77.9 Disorder of arteries and arterioles, unspecified; I50.9 Heart failure, unspecified; E11.9 Type 2 diabetes mellitus without complications; I10 Essential (primary) hypertension; E78.5 Hyperlipidemia, unspecified; Z79.82 Long term (current) use of aspirin; Z79.01 Long term (current) use of anticoagulants; Z79.4 Long term (current) use of insulin
CPT/HCPCS: 36415; 36416; 70450; 70496; 70498; 80053; 80306; 80307; 81001; 82962; 85025; 85610; 85730; 87040; 87637; 93005; 96374; 99285; J0696